=== PATIENT | female | born 2000 | race Caucasian/White ===

== ENCOUNTER 2021-02-02 09:33 | Inpatient (IN) ==
[2021-02-02] MEDS ORDERED: ONDANSETRON INJ 2 MG/ML 2 ML VIAL IV STA (10:13)
[2021-02-02] MEDS ORDERED: SODIUM CHLORIDE 0.9% 1000ML 1,000 ML IV ONE ×2 (10:13→12:41)
[2021-02-02] MEDS ORDERED: KETOROLAC TROMETHAMINE 15 MG/ML VIAL IV STA (10:13)
--- NOTE | 2021-02-02 10:21 | Emergency Department Note ---
Impression & Plan Pyelonephritis, Leukocytosis, Acute right flank pain, Vomiting ED Provider Note NAME: LUKAS TRACEY AGE: 20 SEX: F : 2000 ARRIVES VIA: Walk-In INFORMANT: [Patient] ED PROVIDER(S): [Qamar Biswas MD] CHIEF COMPLAINT: Illness HISTORY OF PRESENT ILLNESS: The patient is a 20-year-old female presents to the ER with urinary symptoms. She thinks she has a bad urinary infection. The patient had a UTI and may be a kidney infection a month ago. She was treated with antibiotics and seemed better for a while. Now, since the eighth, for 6 days now, she has had the return of urinary symptoms. She has pressure to urinate, some pain to urinate, she has lost urinary continence a few times. She went to [facility] and a culture of the urine did grow showing an infection. She was ordered Macrobid but just picked the medications up today. The patient states that she has nausea, she vomited. She has chills. She now has right flank pain that is moderate in severity. She has a headache. Her legs are painful. In addition, on top of everything, she has had a sore throat for 24 hours, the left side seems worse than the right. She is vaccinated against COVID-19. No mono or strep exposures. We were able to obtain the urine culture results from the [facility]. Klebsiella pneumonia grew, it was fairly sensitive, resistance to ampicillin was noted. Ceftriaxone, cefazolin and cefuroxime were all found sensitive. GC and Chlamydia testing was done as well by the [facility], this was negative. REVIEW OF SYSTEMS: See HPI for pertinent positives and negatives. A total of ten systems were reviewed and were otherwise negative. PMHx/PSHx: See Below SOCIAL HISTORY: See Below. PHYSICAL EXAM: GENERAL: Patient is in no acute distress. HEENT: No acute trauma, normocephalic atraumatic, mucous membranes moist, no nasal congestion, no scleral icterus. There is bilateral throat erythema with exudate. No evidence for peritonsillar abscess. NECK: No stridor, moderate bilateral anterior cervical adenopathy, no meningismus, trachea is midline. LUNGS: Clear to auscultation bilaterally, no wheeze, no rhonchi, breath sounds equal. HEART: Without murmurs gallops or rubs, regular rate and rhythm. ABDOMEN: Soft, mildly tender over the bladder, bowel sounds positive, no hernias, no peritonitis. EXTREMITIES: No cyanosis or edema, full range of motion of all the joints without pain or difficulty, no signs for acute trauma. NEUROLOGIC: Oriented x 3, no acute motor or sensory deficits, no focal weakness. SKIN: No rash, no jaundice, no diaphoresis. Back: Mild right flank discomfort to percussion. DIFFERENTIAL DIAGNOSIS: Renal colic, UTI, appendicitis, diverticulitis, mesenteric ischemia, aortic pathology, pyelonephritis, inflammatory bowel disease, PUD, biliary pathology, COVID-19, strep pharyngitis, mono, viral illness, as well as other pathologies. EMERGENCY DEPARTMENT COURSE/PROCEDURES: MEDICAL DECISION MAKING: There is a marked leukocytosis at 27,000, this is consistent with infection. A mild anemia was noted. There was a normal platelet count. No significant electrolyte abnormality or kidney failure. Lactic acid level was not elevated making sepsis less likely. No concerning liver enzyme elevation. testing was negative. Urinalysis was consistent with infection. Covid testing was negative. Clayton and strep testing was negative. Renal ultrasound did not show any hydronephrosis. I was able to review the patient's urine culture results from [facility]. Klebsiella grew, it was resistant to amoxicillin, sensitive to all other antibiotics tested. The patient received IV saline for hydration. She received IV Toradol, IV Zofran and IV cefepime. She was given oral Tylenol, IV morphine and IV Zofran. The patient presents with what seems like pyelonephritis. She is quite ill with a white count of 27,000. I do think a hospital stay for IV antibiotic therapy is warranted. I spoke to the patient, I talked to case management. The on-call hospitalist was consulted. Past Med/Surg History Medical History Psoriatic arthritis Social History Smoking Status: Never smoker Hx Alcohol Use: Yes Hx Substance Use: No Preferred Language: Burkinan Feels Safe at Home: Yes Allergies Allergies Allergy/AdvReac Type Severity Reaction Status Date / Time clindamycin Allergy Intermediate Rash Verified 02/02/21 10:05 prednisone AdvReac Mild SWELLING, Unverified 02/02/21 10:05 LEGS NUMB Home Meds Home Medications Medication Instructions Recorded Confirmed naproxen 500 mg tablet 500 mg PO BID PRN 12/10/20 02/02/21 fluoxetine 20 mg capsule (Prozac) 20 mg PO DAILY 01/16/21 02/02/21 gabapentin 300 mg capsule 300 mg PO UD PRN 02/02/21 02/02/21 multivitamin 1 tab PO DAILY 02/02/21 02/02/21 Results & Data (ED) Vital Signs Vital Signs - 24 hr 02/02/21 09:39 02/02/21 11:14 02/02/21 11:59 Temperature 36.7 C Temperature Source Temporal Artery Scan Pulse Rate 116 H Pulse Rate [Left] 89 Respiratory Rate 18 12 Respiratory Effort / Characteristics Non-Labored Non-Labored Respiratory Depth Normal Normal Respiratory Pattern Regular Blood Pressure 110/64 Blood Pressure [Left Arm] 88/52 L Blood Pressure Mean 79 Blood Pressure Mean [Left Arm] 64 Pulse Oximetry 99 99 99 Oxygen Delivery Method Room Air Sepsis Recent Fever Within 48 Hours No Sepsis New/Unexplained Change in Mental Status No Sepsis Action Taken by Nursing No Action Required 02/02/21 12:39 Temperature Temperature Source Pulse Rate Pulse Rate [Left] 92 H Respiratory Rate 20 Respiratory Effort / Characteristics Non-Labored Respiratory Depth Normal Respiratory Pattern Blood Pressure Blood Pressure [Left Arm] 112/59 L Blood Pressure Mean Blood Pressure Mean [Left Arm] 76 Pulse Oximetry 100 Oxygen Delivery Method Room Air Sepsis Recent Fever Within 48 Hours Sepsis New/Unexplained Change in Mental Status Sepsis Action Taken by Assisted Medications Current Medication List: was personally reviewed by me Laboratory Data Attestation: I reviewed the patient's lab results. Result diagrams: 02/02/21 10:26 02/02/21 10:26 Lab Results 02/02/21 02/02/21 02/02/21 Range/Units 10:26 10:26 10:26 WBC 27.43 H (4.8-10.8) K/uL RBC 3.52 L (4.2-5.4) M/uL Hgb 10.9 L (12.0-16.0) g/dL Hct 32.5 L (37-47) % MCV 92.3 (80-100) fL MCH 31.0 (25-34) pg MCHC 33.5 (32-36) g/dL RDW Std Deviation 46.8 H (36.4-46.3) fL RDW Coeff of Romie 13.9 (11.5-14.5) % Plt Count 305 (130-400) K/uL MPV 9.0 (7.4-10.4) fL Immature Gran % (Auto) 0.3 % Neut % (Auto) 84.8 % Lymph % (Auto) 5.5 % Clayton % (Auto) 9.3 % Eos % (Auto) 0.0 % Baso % (Auto) 0.1 % Neut # (Auto) 23.27 H (1.4-6.5) K/uL Lymph # (Auto) 1.50 (1.2-3.4) K/uL [place] # (Auto) 2.55 H (0.11-0.59) K/uL Eos # (Auto) 0.01 (0-0.5) K/uL Baso # (Auto) 0.03 (0-0.2) K/uL Immature Gran # (Auto) 0.07 H (0.00-0.02) K/uL Sodium 137 (136-145) mmol/L Potassium 4.1 (3.5-5.1) mmol/L Chloride 106 (98-107) mmol/L Carbon Dioxide 24 (21-32) mmol/L Anion Gap 7.0 (3-11) BUN 5 L (7-18) mg/dl Creatinine 0.70 (0.6-1.2) mg/dl Est Cr Clr Drug Dosing 106.9 ml/min Est GFR ( Amer) 145.6 ml/min Est GFR (Non-Af Amer) 125.6 ml/min BUN/Creatinine Ratio 7.3 L (10-20) Glucose 105 H (70-99) mg/dl Lactate (0.4-2.0) mmol/L Calcium 9.0 (8.5-10.1) mg/dl Total Bilirubin 0.4 (0.2-1) mg/dl AST 11 L (15-37) U/L ALT 11 L (12-78) U/L Alkaline Phosphatase 74 (45-117) U/L Total Protein 7.9 (6.4-8.2) gm/dl Albumin 4.1 (3.4-5.0) gm/dl Globulin 3.8 (2.5-4.0) gm/dl Albumin/Globulin Ratio 1.1 (0.9-2) HCG, Qual Negative (Negative) Urine Color Urine Appearance (Clear) Urine pH (4.5-7.5) Ur Specific [place] (1.000-1.030) Urine Protein (Negative) Urine Glucose (UA) (Negative) Urine Ketones (Negative) Urine Blood (Negative) Urine Nitrite (Negative) Urine Bilirubin (Negative) Urine Urobilinogen (Negative) Ur Leukocyte Esterase (Negative) Urine WBC (Auto) (0-5) /hpf Urine RBC (Auto) (0-4) /hpf U Hyaline Cast (Auto) (0-5) /lpf U Epithel Cells (Auto) (0-5) /lpf Urine Bacteria (Auto) (Negative) COVID-19 Eval Order SARS-CoV-2 (PCR) (Negative) Monoscreen Negative (Negative) Group A Strep (Molecular) (Negative) Group A Strep (PCR) 02/02/21 02/02/21 02/02/21 Range/Units 10:30 10:30 10:30 WBC (4.8-10.8) K/uL RBC (4.2-5.4) M/uL Hgb (12.0-16.0) g/dL Hct (37-47) % MCV (80-100) fL MCH (25-34) pg MCHC (32-36) g/dL RDW Std Deviation (36.4-46.3) fL RDW Coeff of Romie (11.5-14.5) % Plt Count (130-400) K/uL MPV (7.4-10.4) fL Immature Gran % (Auto) % Neut % (Auto) % Lymph % (Auto) % [place] % (Auto) % Eos % (Auto) % Baso % (Auto) % Neut # (Auto) (1.4-6.5) K/uL Lymph # (Auto) (1.2-3.4) K/uL [place] # (Auto) (0.11-0.59) K/uL Eos # (Auto) (0-0.5) K/uL Baso # (Auto) (0-0.2) K/uL Immature Gran # (Auto) (0.00-0.02) K/uL Sodium (136-145) mmol/L Potassium (3.5-5.1) mmol/L Chloride (98-107) mmol/L Carbon Dioxide (21-32) mmol/L Anion Gap (3-11) BUN (7-18) mg/dl Creatinine (0.6-1.2) mg/dl Est Cr Clr Drug Dosing ml/min Est GFR ( Amer) ml/min Est GFR (Non-Af Amer) ml/min BUN/Creatinine Ratio (10-20) Glucose (70-99) mg/dl Lactate (0.4-2.0) mmol/L Calcium (8.5-10.1) mg/dl Total Bilirubin (0.2-1) mg/dl AST (15-37) U/L ALT (12-78) U/L Alkaline Phosphatase (45-117) U/L Total Protein (6.4-8.2) gm/dl Albumin (3.4-5.0) gm/dl Globulin (2.5-4.0) gm/dl Albumin/Globulin Ratio (0.9-2) HCG, Qual (Negative) Urine Color Yellow Urine Appearance Cloudy A (Clear) Urine pH 7.0 (4.5-7.5) Ur Specific [place] 1.007 (1.000-1.030) Urine Protein Negative (Negative) Urine Glucose (UA) Negative (Negative) Urine Ketones 1+ H (Negative) Urine Blood 1+ H (Negative) Urine Nitrite Negative (Negative) Urine Bilirubin Negative (Negative) Urine Urobilinogen Negative (Negative) Ur Leukocyte Esterase 3+ H (Negative) Urine WBC (Auto) >30 H (0-5) /hpf Urine RBC (Auto) 5-10 H (0-4) /hpf U Hyaline Cast (Auto) 0 (0-5) /lpf U Epithel Cells (Auto) 20-30 H (0-5) /lpf Urine Bacteria (Auto) 2+ H (Negative) COVID-19 Eval Order Covid19 at [facility] SARS-CoV-2 (PCR) (Negative) Monoscreen (Negative) Group A Strep (Molecular) (Negative) Group A Strep (PCR) Cancelled 02/02/21 02/02/21 02/02/21 Range/Units 10:30 10:30 13:04 WBC (4.8-10.8) K/uL RBC (4.2-5.4) M/uL Hgb (12.0-16.0) g/dL Hct (37-47) % MCV (80-100) fL MCH (25-34) pg MCHC (32-36) g/dL RDW Std Deviation (36.4-46.3) fL RDW Coeff of Romie (11.5-14.5) % Plt Count (130-400) K/uL MPV (7.4-10.4) fL Immature Gran % (Auto) % Neut % (Auto) % Lymph % (Auto) % [place] % (Auto) % Eos % (Auto) % Baso % (Auto) % Neut # (Auto) (1.4-6.5) K/uL Lymph # (Auto) (1.2-3.4) K/uL [place] # (Auto) (0.11-0.59) K/uL Eos # (Auto) (0-0.5) K/uL Baso # (Auto) (0-0.2) K/uL Immature Gran # (Auto) (0.00-0.02) K/uL Sodium (136-145) mmol/L Potassium (3.5-5.1) mmol/L Chloride (98-107) mmol/L Carbon Dioxide (21-32) mmol/L Anion Gap (3-11) BUN (7-18) mg/dl Creatinine (0.6-1.2) mg/dl Est Cr Clr Drug Dosing ml/min Est GFR ( Amer) ml/min Est GFR (Non-Af Amer) ml/min BUN/Creatinine Ratio (10-20) Glucose (70-99) mg/dl Lactate 0.6 (0.4-2.0) mmol/L Calcium (8.5-10.1) mg/dl Total Bilirubin (0.2-1) mg/dl AST (15-37) U/L ALT (12-78) U/L Alkaline Phosphatase (45-117) U/L Total Protein (6.4-8.2) gm/dl Albumin (3.4-5.0) gm/dl Globulin (2.5-4.0) gm/dl Albumin/Globulin Ratio (0.9-2) HCG, Qual (Negative) Urine Color Urine Appearance (Clear) Urine pH (4.5-7.5) Ur Specific [place] (1.000-1.030) Urine Protein (Negative) Urine Glucose (UA) (Negative) Urine Ketones (Negative) Urine Blood (Negative) Urine Nitrite (Negative) Urine Bilirubin (Negative) Urine Urobilinogen (Negative) Ur Leukocyte Esterase (Negative) Urine WBC (Auto) (0-5) /hpf Urine RBC (Auto) (0-4) /hpf U Hyaline Cast (Auto) (0-5) /lpf U Epithel Cells (Auto) (0-5) /lpf Urine Bacteria (Auto) (Negative) COVID-19 Eval Order SARS-CoV-2 (PCR) NEGATIVE (Negative) Monoscreen (Negative) Group A Strep (Molecular) Negative (Negative) Group A Strep (PCR) Administered Medications Discontinued Medications Acetaminophen (Acetaminophen 500 Mg Tab) 1,000 mg PO NOW STA Stop: 02/02/21 12:13 Last Admin: 02/02/21 12:40 Dose: 1,000 mg Documented by: [id number] Sodium Chloride (Nss 1000ml) 1,000 mls @ 999 mls/hr IV .Q1H1M ONE Stop: 02/02/21 11:13 Last Infusion: 02/02/21 12:03 Dose: 0 mls/hr Documented by: [id number] Admin: 02/02/21 10:39 Dose: 999 mls/hr Documented by: [id number] Cefepime HCl (Maxipime) 2,000 mg in 20 mls @ 5 mls/min IV NOW STA; Protocol Stop: 02/02/21 11:04 Last Admin: 02/02/21 12:02 Dose: 5 mls/min Documented by: [id number] Sodium Chloride (Nss 1000ml) 1,000 mls @ 999 mls/hr IV .Q1H1M ONE Stop: 02/02/21 13:41 Last Admin: 02/02/21 12:49 Dose: 999 mls/hr Documented by: [id number] Ketorolac Tromethamine (Ketorolac Tromethamine 15 Mg/Ml Vial) 15 mg IV NOW STA Stop: 02/02/21 10:14 Last Admin: 02/02/21 10:39 Dose: 15 mg Documented by: [id number] Morphine Sulfate (Morphine Sulfate 4 Mg/Ml 1 Ml Carp\Vial) 4 mg IV NOW STA Stop: 02/02/21 12:13 Last Admin: 02/02/21 12:43 Dose: 4 mg Documented by: [id number] Ondansetron HCl (Ondansetron Inj 2 Mg/Ml 2 Ml Vial) 4 mg IV NOW STA Stop: 02/02/21 10:14 Last Admin: 02/02/21 10:39 Dose: 4 mg Documented by: [id number] Imaging Data Radiologist's Impression: Renal Ultrasound 02/02/21 10:13 US renal/blad retro comp HISTORY: 20 years-old Female right flank pain . Acute right flank pain with urinary tract infection COMPARISON: CT abdomen and pelvis 01/16/2021 TECHNIQUE: Multiple real-time sonographic images of the kidneys and urinary bladder were obtained assessing grayscale appearance and color flow FINDINGS: Right kidney measures 10.1 cm in length. Left kidney measures 10.5 cm in length. No renal calculi, hydronephrosis or suspicious mass lesion. Unremarkable urinary bladder. Ureteral jets are not identified. IMPRESSION: Unremarkable sonographic appearance of the kidneys and urinary bladder. ACT 112: Negative or not required by law. The above report was generated using voice recognition software. It may contain grammatical, syntax or spelling errors. Electronically signed by: Mayito Mares M.D. 02/02/2021 11:54 AM Discharge Plan Visit Data Chief Complaint: Illness Stated Complaint: STAFF INFECTION ED Provider: Qamar Biswas Discharge Problem: Pyelonephritis, Leukocytosis, Acute right flank pain, Vomiting Patient Disposition: Admitted As Inpatient Condition: Fair Forms Stand Alone Forms: My [employer] Prescriptions Prescriptions: No Action naproxen 500 mg Tablet 500 mg PO BID PRN (Reason: Headache) RF: 0 fluoxetine [Prozac] 20 mg Capsule 20 mg PO DAILY RF: 0 multivitamin [Multiple Vitamin] Tablet 1 tab PO DAILY RF: 0 gabapentin 300 mg capsule 300 mg PO UD PRN (Reason: Pain) RF: 0 Referrals Referrals: [facility] [Primary Care Provider] -
[2021-02-02 10:42] LABS: Hematocrit (blood only) 32.5 % (37-47); Hemoglobin 10.9 g/dL (12.0-16.0); Mean Corpuscular Hgb Conc 33.5 g/dL (32-36); Mean Corpuscular Volume 92.3 fL (80-100); Platelet Count 305 K/uL (130-400); RDW Coefficient of Variation 13.9 % (11.5-14.5); RDW Standard Deviation 46.8 fL (36.4-46.3); Red Blood Count 3.52 M/uL (4.2-5.4); White Blood Count 27.43 K/uL (4.8-10.8)
[2021-02-02 10:49] LABS: Appearance Urine Cloudy (Clear); Bacteria Urine Automated 2+ (Negative); Bilirubin Urine Negative (Negative); Blood Urine 1+ (Negative); Cast Urine Automated 0 /lpf (0-5); Color Urine Yellow; Epithelial Cell Urine Auto 20-30 /lpf (0-5); Glucose Urine UA Negative (Negative); Ketones Urine 1+ (Negative); Leukocyte Esterase Urine 3+ (Negative); Nitrite Urine Negative (Negative); Protein Urine Negative (Negative); Specific Gravity Urine 1.007 (1.000-1.030); Urobilinogen Urine Negative (Negative); WBC Urine Automated >30 /hpf (0-5)
[2021-02-02] MEDS ORDERED: CEFEPIME 2,000 MG/20 ML VIAL IV STA (11:01)
[2021-02-02 11:06] LABS: Albumin Level 4.1 gm/dl (3.4-5.0); BUN Creatinine Ratio 7.3 (10-20); Creatinine Clr Calc Pharmacy 106.9 ml/min; Est GFR (African American) 145.6 ml/min; Est GFR (Non-African American) 125.6 ml/min; Monotest Negative (Negative); Potassium 4.1 mmol/L (3.5-5.1); Pregnancy Test, Serum Negative (Negative)
[2021-02-02 11:09] LABS: Albumin Globulin Ratio 1.1 (0.9-2); Bilirubin,Total 0.4 mg/dl (0.2-1); Globulin 3.8 gm/dl (2.5-4.0); Total Protein 7.9 gm/dl (6.4-8.2)
[2021-02-02 11:15] LABS: Basophils # (auto) 0.03 K/uL (0-0.2); Basophils % (auto) 0.1 %; Eosinophils # (auto) 0.01 K/uL (0-0.5); Immature Granulocytes # (auto) 0.07 K/uL (0.00-0.02); Immature Granulocytes % (auto) 0.3 %; Lymphocytes % (auto) 5.5 %; Monocytes # (auto) 2.55 K/uL (0.11-0.59); Monocytes % (auto) 9.3 %; Neutrophils # (auto) 23.27 K/uL (1.4-6.5); Neutrophils % (auto) 84.8 %
--- NOTE | 2021-02-02 11:56 | Ultrasound Report ---
US renal/blad retro comp HISTORY: 20 years-old Female right flank pain . Acute right flank pain with urinary tract infection COMPARISON: CT abdomen and pelvis 01/16/2021 TECHNIQUE: Multiple real-time sonographic images of the kidneys and urinary bladder were obtained ass essing grayscale appearance and color flow FINDINGS: Right kidney measures 10.1 cm in length. Left kidney measures 10.5 cm in length. No renal calculi, hy dronephrosis or suspicious mass lesion. Unremarkable urinary bladder. Ureteral jets are not identified. IMPRESSION: Unremarkable sonographic appearance of the kidneys and urinary bladder. ACT 112: Negative or not required by law. The above report was generated using voice recognition software. It may contain grammatical, syntax o r spelling errors. Electronically signed by: Mayito Mares M.D. 02/02/2021 11:54 AM
[2021-02-02] MEDS ORDERED: MoRPHine SULFATE 4 MG/ML 1 ML CARP\\VIAL IV STA (12:12)
[2021-02-02] MEDS ORDERED: ACETAMINOPHEN 500 MG TAB PO STA (12:12)
--- NOTE | 2021-02-02 12:44 | History & Physical Report ---
Date of Service February 02, 2021 Assessment & Plan (1) Pyelonephritis: Plan: Klebsiella resistant to amoxicillin as outpatient Follow up repeat urine and blood cultures here Switch cefepime to ceftriaxone 2g IV daily (2) Psoriatic arthritis: Plan: Diagnosed in June. 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 Takes naproxen and gabapentin as needed. She was supposed to be on methotrexate after IUD and after UTIs cleared up. Affects her back and joints. No psoriasis (3) Fibromyalgia: Plan: VTE Prophylaxis - low risk, none Diet - regular Disposition - observation status to med/surg History of Present Illness Chief Complaint: UTI Primary Care Provider: [facility] Duglas is a 20 year old female who presents to the ER with UTI symptoms. Initial symptoms started on December 25 with urinary frequency and dysuria. She was not seen by a healthcare provider for 2 weeks but was started on Macrobid in mid-December. Ad the same time she was also diagnosed with a sinus infection and treated with 7 days of amoxicillin. Her symptoms improved for 2-3 days but then returned. On Jan 27 she went back to [facility] and took a urine sample but initially not given antibiotics. 3 days ago on Saturday she was told she had a UTI and was prescribed and Macrobid again but only picked this up today. She now has worsening symptoms since Saturday with chills, urinary frequency, dysuria and right flank pain. Urine culture from [facility] grew Klebsiella pneumonia grew with resistance to ampicillin was noted. Sensitive to ceftriaxone. In the ER she was diagnosed with pyelonephritis and treated with IV cefepime. She was referred to Medicine for admission and ongoing management of pyelonephritis. Allergies Allergy/AdvReac Type Severity Reaction Status Date / Time clindamycin Allergy Intermediate Rash Verified 02/02/21 10:05 prednisone AdvReac Mild SWELLING, Unverified 02/02/21 10:05 LEGS NUMB Home Medications Medication Instructions Recorded Confirmed Type naproxen 500 mg tablet 500 mg PO BID PRN 12/10/20 02/02/21 History fluoxetine 20 mg capsule (Prozac) 20 mg PO DAILY 01/16/21 02/02/21 History gabapentin 300 mg capsule 300 mg PO TID PRN 02/02/21 02/02/21 History multivitamin 1 tab PO DAILY 02/02/21 02/02/21 History Past Med/Surg History Medical History Psoriatic arthritis Social History Smoking Status: Never smoker Hx Alcohol Use: Yes Hx Substance Use: No Preferred Language: Greek Communication Ability: Effective Intelligence Operations Specialist Required: No Beliefs That Will Affect Care: None Current Living Situation: Other Current Living Situation Comment: 3 roomates Other Information That Helps Us Care for You: No Feels Safe at Home: Yes Safety Concerns: Feels Safe At This Time Assistive Devices: None Review of Systems Review of Systems: All systems reviewed & are unremarkable except as noted in HPI & below Sore throat Bilateral leg pain Physical Exam Constitutional: WD/WN, vitals as above Eyes: + anicteric sclerae; normal pupil size ENMT: external ear and nose normal, oropharynx normal Neck: trachea midline, no thyromegaly Respiratory: normal respiratory effort, lungs clear to auscultation Cardiovascular: RRR, no murmur, no edema Gastrointestinal (Abdomen): Inspection/Auscultation: abdomen normal to inspection Percussion/Palpation: abdomen soft; abdomen nontender, no guarding and abdomen not rigid Musculoskeletal: no cyanosis or clubbing, extremities motor strength 5/5 Skin: no rashes, warm and dry Neurologic: moves all extremities and awake; not confused Psychiatric: A+Ox3, euthymic affect Genitourinary: + CVA tenderness (right) Results & Data Results & Data ([facility]) Vital Signs (Past 12 Hours) Vital Signs Temp Pulse Pulse Resp BP BP Pulse Ox 02/02/21 11:59 89 12 88/52 L 99 02/02/21 11:14 99 02/02/21 09:39 36.7 C 116 H 18 110/64 99 Laboratory Results Abnormal lab results 02/02/21 02/02/21 02/02/21 Range/Units 10:26 10:26 10:30 WBC 27.43 H (4.8-10.8) K/uL RBC 3.52 L (4.2-5.4) M/uL Hgb 10.9 L (12.0-16.0) g/dL Hct 32.5 L (37-47) % RDW Std Deviation 46.8 H (36.4-46.3) fL Neut # (Auto) 23.27 H (1.4-6.5) K/uL [place] # (Auto) 2.55 H (0.11-0.59) K/uL Immature Gran # (Auto) 0.07 H (0.00-0.02) K/uL BUN 5 L (7-18) mg/dl BUN/Creatinine Ratio 7.3 L (10-20) Glucose 105 H (70-99) mg/dl AST 11 L (15-37) U/L ALT 11 L (12-78) U/L Urine Appearance Cloudy A (Clear) Urine Ketones 1+ H (Negative) Urine Blood 1+ H (Negative) Ur Leukocyte Esterase 3+ H (Negative) Urine WBC (Auto) >30 H (0-5) /hpf Urine RBC (Auto) 5-10 H (0-4) /hpf U Epithel Cells (Auto) 20-30 H (0-5) /lpf Urine Bacteria (Auto) 2+ H (Negative) Diagnostic Findings US renal/blad retro comp HISTORY: 20 years-old Female right flank pain . Acute right flank pain with urinary tract infection COMPARISON: CT abdomen and pelvis 01/16/2021 TECHNIQUE: Multiple real-time sonographic images of the kidneys and urinary bladder were obtained assessing grayscale appearance and color flow FINDINGS: Right kidney measures 10.1 cm in length. Left kidney measures 10.5 cm in length. No renal calculi, hydronephrosis or suspicious mass lesion. Unremarkable urinary bladder. Ureteral jets are not identified. IMPRESSION: Unremarkable sonographic appearance of the kidneys and urinary bladder. Medications Administered ER Medications Given: NSS 1L bolus Toradol 15mg IV Ondansetron 4mg IV Cefepime 2g IV Morphine 4mg IV Acteaminophen 1g IV Code Status & VTE Plan Code Status Full VTE Prophylaxis Plan VTE Prophylaxis will be ordered: No Reason for no VTE drug order: Treatment not indicated Reason for no VTE mechanical prophylaxis: Treatment not indicated PG Care Time/CCT Total # of Minutes Spent Total Time Spent with Patient: Total time spent is greater than 50% in coordination of care (as documented) at patient's floor/unit and/or counseling patient: Coding Level of Care Code INT OBSERVATION CARE 50M LVL 2 Diagnoses Pyelonephritis N12 Psoriatic arthritis L40.50 Fibromyalgia M79.7
[2021-02-02] MEDS ORDERED: GABAPENTIN 300 MG CAP PO PRN (15:24)
[2021-02-02] MEDS ORDERED: NAPROXEN 250 MG TAB PO PRN (15:24)
[2021-02-02] MEDS: SODIUM CHLORIDE 0.9% 1000ML 1,000 ML IV SCH ×2 (15:56→21:54)
[2021-02-02] MEDS: cefTRIAXone SODIUM 2,000 MG in DEXTROSE 5% 50 ML IV SCH (18:12)
[2021-02-02] MEDS: ACETAMINOPHEN 325 MG TAB PO PRN (19:58)
[2021-02-02] MEDS: KETOROLAC TROMETHAMINE 15 MG/ML VIAL IV PRN (20:00)
[2021-02-02] MEDS: MoRPHine SULFATE 2 MG/ML CARP IV PRN (22:00)
[2021-02-03] MEDS: SODIUM CHLORIDE 0.9% 1000ML 1,000 ML IV SCH ×4 (03:09→21:53)
[2021-02-03] MEDS ORDERED: diphenhydrAMINE 50 MG/ML VIAL IV STA (03:21)
[2021-02-03] MEDS ORDERED: SODIUM CHLORIDE 0.9% 1000ML 1,000 ML IV ONE (03:30)
--- NOTE | 2021-02-03 03:32 | Communication Note ---
Date of Service: February 03, 2021 Called to bedside for patient complaints of cheek swelling and dizziness when using the restroom. Had received morphine not too long prior to symptoms. BP per patient runs on lower side 90s systolic, and is 90s at this time. However, given dizziness with standing and pain medication will give another NSS bolus. Have also ordered Benadryl to be given to see if this improves her sensation of swelling. Does not appear grossly swollen to my exam. No edema noted in upper or lower extremities. Patient complained of throat pain and so did do ENT exam; no maykel to have significant exudates on left tonsil. Per chart review, Monospot and Rapid Strep testing in the ER was negative. WBC count of 27.43 with neutrophil predominance. Renal ultrasound read as normal. While certainly patient has UTI and is undergoing treatment, also have suspicion of exudative pharyngitis (EBV, CMV, Strep). Patient has had sore throat x2 days, which would not likely be long enough for Monospot testing to be positive. Not impossible to have a false negative strep test. Ceftriaxone will cover Group A Strep species well regardless.
[2021-02-03 06:20] LABS: Basophils # (auto) 0.02 K/uL (0-0.2); Basophils % (auto) 0.1 %; Eosinophils # (auto) 0.12 K/uL (0-0.5); Eosinophils % (auto) 0.9 %; Hematocrit (blood only) 26.1 % (37-47); Hemoglobin 8.5 g/dL (12.0-16.0); Immature Granulocytes # (auto) 0.04 K/uL (0.00-0.02); Immature Granulocytes % (auto) 0.3 %; Lymphocytes # (auto) 2.44 K/uL (1.2-3.4); Lymphocytes % (auto) 17.8 %; Mean Corpuscular Hemoglobin 30.4 pg (25-34); Mean Corpuscular Hgb Conc 32.6 g/dL (32-36); Mean Corpuscular Volume 93.2 fL (80-100); Mean Platelet Volume 9.5 fL (7.4-10.4); Monocytes # (auto) 1.02 K/uL (0.11-0.59); Monocytes % (auto) 7.4 %; Neutrophils # (auto) 10.06 K/uL (1.4-6.5); Neutrophils % (auto) 73.5 %; Platelet Count 231 K/uL (130-400); RDW Coefficient of Variation 14.2 % (11.5-14.5); RDW Standard Deviation 48.9 fL (36.4-46.3)
[2021-02-03 07:02] LABS: BUN Creatinine Ratio 8.8 (10-20); Blood Urea Nitrogen 5 mg/dl (7-18); Calcium 7.7 mg/dl (8.5-10.1); Carbon Dioxide 22 mmol/L (21-32); Chloride 116 mmol/L (98-107); Creatinine Clr Calc Pharmacy 141.2 ml/min; Est GFR (African American) > 150.0 ml/min; Est GFR (Non-African American) 137.6 ml/min; Glucose 90 mg/dl (70-99); Potassium 4.1 mmol/L (3.5-5.1); Sodium 139 mmol/L (136-145)
[2021-02-03] MEDS: MULTIVITAMIN TAB PO SCH (08:06)
[2021-02-03] MEDS: FLUoxetine HCL 20 MG CAP PO SCH (08:06)
[2021-02-03] MEDS: MoRPHine SULFATE 2 MG/ML CARP IV PRN (08:11)
[2021-02-03] MEDS ORDERED: diphenhydrAMINE 50 MG/ML VIAL IV PRN (08:30)
--- NOTE | 2021-02-03 08:36 | Hospitalist Progress Note ---
Date of Service February 03, 2021 Assessment & Plan (1) UTI (urinary tract infection): Plan: Klebsiella resistant to amoxicillin as outpatient also previous Citrobacter. initial concerns for pyleonephritis but US of kidneys does not suggest parenchymal infection or cystitis Follow up repeat urine and blood cultures here, throat culture is also pending Switch cefepime to ceftriaxone 2g IV daily Goal would be to have the gram-negative bacilli identified with sensitivities and pick an antibiotic that is both good for that and for her oral pharyngitis although her oral pharyngitis may also likely be a viral pharyngitis (2) Pharyngitis: Plan: Pt with exudative pharyngitis with negative initial monospot and strep screen subjectively this is bothering the pt the most, will have bacterial pharyngitis covered by ceftriaxone add throat culture (3) Psoriatic arthritis: Plan: Diagnosed in June. 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 Takes naproxen and gabapentin as needed. She was supposed to be on methotrexate after IUD and after UTIs cleared up. Affects her back and joints. No psoriasis (4) Fibromyalgia: Admission and Anticipated Discharge Date Admission Date: February 02, 2021 Subjective Patient states that she feels like she is at a swollen face and swollen legs. This is a subjective description and not objectively validated. She does have a sore throat and has some minor low back pain Review of Systems Review of Systems: Mild distress and fatigue no headache, no visual changes no speech or swallowing issues, does complain of a sore throat No stridor or breathing difficulties with regard to her neck no chest pain, pressure or palpitations no shortness of breath, cough or wheezes no abdominal pain, is of some minor bilateral lower back pain, no nausea or vomiting, diarrhea or constipation Frequency and cloudiness is described no focal joint pain or swelling no back pain, CVA tenderness or radicular pain no bruising, bleeding or rashes no focal signs of weakness or numbness or altered sensation no complaints of anxiety or depression.. Physical Exam Physical Exam: The patient appeared well nourished and normally developed. Vital signs as documented. Head exam is normocephalic atraumatic Oropharynx shows exudative pharyngitis to the left with some tonsillar enlargement erythema and exudates Neck is without JVD, thyromegaly, or carotid bruits. Lungs are clear to auscultation, no focal loss of breath sounds Cardiac exam, Rhythm is regular.. No murmurs, rubs or gallops. Abdominal exam reveals normal bowel sounds, soft non tender, no masses Extremities are nonedematous and both pedal pulses are present Neurologic exam is alert and oriented, no focal loss of strength or sensation Skin is without bruises or rashes her described swelling is not corroborated on exam Psychologically is without concerns for anxiety or depression Results & Data Results & Data ([facility]) Vital Signs (Past 12 Hours) Vital Signs Temp Pulse Resp BP BP Pulse Ox 02/03/21 06:20 98.4 F 91 H 16 106/61 98 02/03/21 03:12 97/62 L 02/02/21 23:18 61 111/67 02/02/21 22:45 98.4 F 68 16 82/49 L 90/55 L 98 PG Care Time/CCT Total # of Minutes Spent Total Time Spent with Patient: Total time spent is greater than 50% in coordination of care (as documented) at patient's floor/unit and/or counseling patient: Coding Level of Care Code 31820 Subseq Obs Care Lvl 2 Diagnoses Psoriatic arthritis L40.50 Fibromyalgia M79.7 UTI (urinary tract infection) N39.0 Pharyngitis J02.9
[2021-02-03 10:13] LABS: Iron 12 mcg/dl (35-150); Total Iron Binding Capacity 337 mcg/dl (250-450)
[2021-02-03 10:28] LABS: Folate (Folic Acid) 19.9 ng/ml (>5.38)
[2021-02-03] MEDS: cefTRIAXone SODIUM 2,000 MG in DEXTROSE 5% 50 ML IV SCH (17:48)
[2021-02-03] MEDS ORDERED: ENOXAPARIN INJ 40 MG/0.4 ML SYR SQ ONE (20:45)
[2021-02-03] MEDS: ONDANSETRON INJ 2 MG/ML 2 ML VIAL IV PRN (20:52)
[2021-02-03] MEDS: ACETAMINOPHEN 325 MG TAB PO PRN (20:53)
[2021-02-03] MEDS: POLYETHYLENE (MIRALAX) 17 GM PACK PO PRN (21:52)
[2021-02-03] MEDS: ALBUT/IPRATROP 3MG/0.5MG NEB 3 ML VIAL NEB PRN (22:16)
[2021-02-04] MEDS: SODIUM CHLORIDE 0.9% 1000ML 1,000 ML IV SCH ×2 (03:26→09:56)
[2021-02-04] MEDS: MoRPHine SULFATE 2 MG/ML CARP IV PRN (05:02)
[2021-02-04] MEDS: diphenhydrAMINE Capsule 25 MG CAP PO PRN (08:07)
[2021-02-04] MEDS: KETOROLAC TROMETHAMINE 15 MG/ML VIAL IV PRN ×2 (08:08→18:42)
[2021-02-04] MEDS: ALBUT/IPRATROP 3MG/0.5MG NEB 3 ML VIAL NEB PRN ×2 (08:21→20:13)
[2021-02-04 09:43] LABS: Basophils # (auto) 0.02 K/uL (0-0.2); Basophils % (auto) 0.2 %; Eosinophils # (auto) 0.13 K/uL (0-0.5); Eosinophils % (auto) 1.5 %; Hematocrit (blood only) 29.1 % (37-47); Hemoglobin 9.6 g/dL (12.0-16.0); Immature Granulocytes # (auto) 0.02 K/uL (0.00-0.02); Immature Granulocytes % (auto) 0.2 %; Lymphocytes # (auto) 1.71 K/uL (1.2-3.4); Lymphocytes % (auto) 19.5 %; Mean Corpuscular Hemoglobin 30.8 pg (25-34); Mean Corpuscular Volume 93.3 fL (80-100); Mean Platelet Volume 9.2 fL (7.4-10.4); Monocytes # (auto) 0.85 K/uL (0.11-0.59); Monocytes % (auto) 9.7 %; Neutrophils # (auto) 6.06 K/uL (1.4-6.5); Neutrophils % (auto) 68.9 %; Platelet Count 261 K/uL (130-400); RDW Standard Deviation 48.1 fL (36.4-46.3); Red Blood Count 3.12 M/uL (4.2-5.4); White Blood Count 8.79 K/uL (4.8-10.8)
[2021-02-04] MEDS: FERROUS SULFATE 325 MG TAB PO SCH (10:00)
[2021-02-04 10:05] LABS: BUN Creatinine Ratio 4.5 (10-20); Blood Urea Nitrogen 3 mg/dl (7-18); Calcium 8.3 mg/dl (8.5-10.1); Carbon Dioxide 24 mmol/L (21-32); Chloride 113 mmol/L (98-107); Creatinine Clr Calc Pharmacy 120.7 ml/min; Est GFR (African American) > 150.0 ml/min; Est GFR (Non-African American) 130.7 ml/min; Glucose 95 mg/dl (70-99); Potassium 3.8 mmol/L (3.5-5.1); Sodium 142 mmol/L (136-145)
--- NOTE | 2021-02-04 10:58 | XRay Report ---
XR chest 2V PA/lateral HISTORY: Shortness of breath. COMPARISON: Chest 01/16/2021. FINDINGS: No pneumothorax. The heart is normal in size. There are small bilateral pleural fusions and patchy bibasilar airspace opacities. The upper lung zones are clear. No rib fractures identified. IMPRESSION: Small bilateral pleural effusions with patchy bibasilar densities. This may represent a viral pneumon ia. Recommend follow-up to ensure resolution. ACT 112: Negative or not required by law. Electronically signed by: Steve Hilliard M.D. 02/04/2021 10:57 AM
[2021-02-04] MEDS: FLUoxetine HCL 20 MG CAP PO SCH (11:05)
[2021-02-04] MEDS: MULTIVITAMIN TAB PO SCH (11:05)
--- NOTE | 2021-02-04 17:27 | Hospitalist Progress Note ---
Date of Service February 04, 2021 Assessment & Plan (1) UTI (urinary tract infection): Plan: Initial concerns for pyleonephritis but US of kidneys does not suggest parenchymal infection or cystitis. UTI symptoms have resolved. White count has normalized. Final UC&S growing Klebsiella sensitive to IV ceftriaxone. Continue abx for now as white count has improved. Consider de-esclating to PO abx tomorrow. Blood cultures pending. Goal would be to have the gram-negative bacilli identified with sensitivities and pick an antibiotic that is both good for that and for her oral pharyngitis although her oral pharyngitis may also likely be a viral pharyngitis. (2) Pharyngitis: Plan: Pt with exudative pharyngitis with negative initial monospot and strep screen. Viral vs bacterial? Throat culture pending. She reports pain has improved this morning. Mostly c/o increasing SOB and chest tightness. See below. (3) Psoriatic arthritis: Plan: Diagnosed in June. 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 Takes naproxen and gabapentin as needed. She was supposed to be on methotrexate after IUD and after UTIs cleared up. Affects her back and joints. No psoriasis (4) Fibromyalgia: (5) SOB (shortness of breath): (6) Hypoxia: Plan: SOB with hypoxia this AM. O2 sat of 88%. Currently O2 sat of 95% on 1L O2 nasal cannula. No hx of asthma. Lungs clear to auscultation bilaterally. Chest XR showing possible viral pneumonia. EKG performed d/t chest tightness. Non-specific T wave abnormality likely normal variant for age, but will check ECHO to r/o pericarditis in the setting of viral illness. Continue Duonebs QID PRN, incentive spirometer, ambulation to hallway (7) Iron deficiency anemia: Plan: Iron level of 12. Patient reports hx of iron deficiency anemia, but she stopped taking iron. Will resume ferrous sulfate. H&H of 9.6 and 29.1 this morning. Will continue to monitor. (8) DVT prophylaxis: Plan: Low risk- encourage ambulation Plan: Patient's mother Marly updated this evening. Phone number is for further updates. Admission and Anticipated Discharge Date Admission Date: February 02, 2021 Subjective Patient c/o increased SOB this morning with chest tightness. O2 sat was 88%, and she was placed on 1L of O2 nasal cannula. She has no hx of asthma. She does have a hx of environmental allergies. Mild improvement in SOB with albuterol. She denies any urinary symptoms this morning. She also c/o diffuse edema of the extremities and face with she noted yesterday as well. Review of Systems Review of Systems: All systems reviewed & are unremarkable except as noted in Subjective Physical Exam Physical Exam: Temp Pulse Resp BP Pulse Ox 36.8 C 105 H 18 113/71 95 02/04/21 15:06 02/04/21 15:06 02/04/21 15:06 02/04/21 15:06 02/04/21 15:06 Patient is afebrile. Vital signs stable. Constitutional: average body habitus; no acute distress Eyes: + anicteric sclerae ENMT: Ears: no hearing impairment Neck: normal visual inspection Respiratory: normal respiratory effort, lungs clear to auscultation Cardiovascular: RRR, no murmur, no edema Gastrointestinal (Abdomen): Inspection/Auscultation: normal bowel sounds Percussion/Palpation: abdomen soft; abdomen nontender Musculoskeletal: Head/Neck/Chest: normocephalic Skin: no rashes, warm and dry Psychiatric: A+Ox3, euthymic affect Results & Data Results & Data ([facility]) Vital Signs (Past 12 Hours) Vital Signs Temp Pulse Resp BP Pulse Ox 02/04/21 15:06 36.8 C 105 H 18 113/71 95 02/04/21 08:21 84 20 97 02/04/21 08:12 94 02/04/21 08:07 88 L 02/04/21 07:59 97 02/04/21 07:41 37.2 C 73 17 102/63 92 PG Care Time/CCT Total # of Minutes Spent Total Time Spent with Patient: Total time spent is greater than 50% in coordination of care (as documented) at patient's floor/unit and/or counseling patient: Coding Level of Care Code 45559 Subseq Hosp Care Lvl 3 History Detailed Exam Detailed Medical Decision Making Moderate Complexity Diagnoses UTI (urinary tract infection) N39.0 Pharyngitis J02.9 Psoriatic arthritis L40.50 Fibromyalgia M79.7 SOB (shortness of breath) R06.02 Hypoxia R09.02 Iron deficiency anemia D50.9 DVT prophylaxis Z29.9
[2021-02-04] MEDS: cefTRIAXone SODIUM 2,000 MG in DEXTROSE 5% 50 ML IV SCH (17:36)
[2021-02-04 19:25] LABS: Adenovirus PCR Not Detected (NotDetected); Bordetella parapertussis PCR Not Detected (NotDetected); Bordetella pertussis PCR Not Detected (NotDetected); Chlamydia pneumoniae PCR Not Detected (NotDetected); Coronavirus 229E PCR Not Detected (NotDetected); Coronavirus CoV-2 (COVID19)PCR Not Detected (NotDetected); Coronavirus HKU1 PCR Not Detected (NotDetected); Coronavirus NL63 PCR Not Detected (NotDetected); Coronavirus OC43PCR Not Detected (NotDetected); Human Metapneumovirus PCR Not Detected (NotDetected); Influenza A PCR Not Detected (NotDetected); Influenza B PCR Not Detected (NotDetected); Mycoplasma pneumoniae PCR Not Detected (NotDetected); Parainfluenza Virus 1 PCR Not Detected (NotDetected); Parainfluenza Virus 2 PCR Not Detected (NotDetected); Parainfluenza Virus 3 PCR Not Detected (NotDetected); Parainfluenza Virus 4 PCR Not Detected (NotDetected); Respiratory Syncytial VirusPCR Not Detected (NotDetected)
[2021-02-04 19:31] LABS: Rhinovirus/Enterovirus PCR DETECTED (NotDetected)
[2021-02-04] MEDS: POLYETHYLENE (MIRALAX) 17 GM PACK PO PRN (19:37)
[2021-02-04] MEDS: ACETAMINOPHEN 325 MG TAB PO PRN (22:35)
[2021-02-05 06:09] LABS: Basophils # (auto) 0.02 K/uL (0-0.2); Basophils % (auto) 0.3 %; Eosinophils # (auto) 0.13 K/uL (0-0.5); Eosinophils % (auto) 1.8 %; Hematocrit (blood only) 28.9 % (37-47); Hemoglobin 9.5 g/dL (12.0-16.0); Immature Granulocytes # (auto) 0.01 K/uL (0.00-0.02); Immature Granulocytes % (auto) 0.1 %; Lymphocytes % (auto) 22.2 %; Mean Corpuscular Hemoglobin 30.5 pg (25-34); Mean Corpuscular Hgb Conc 32.9 g/dL (32-36); Mean Corpuscular Volume 92.9 fL (80-100); Mean Platelet Volume 9.5 fL (7.4-10.4); Monocytes # (auto) 0.77 K/uL (0.11-0.59); Monocytes % (auto) 10.7 %; Neutrophils # (auto) 4.68 K/uL (1.4-6.5); Neutrophils % (auto) 64.9 %; Platelet Count 295 K/uL (130-400); RDW Coefficient of Variation 13.9 % (11.5-14.5); RDW Standard Deviation 47.8 fL (36.4-46.3); Red Blood Count 3.11 M/uL (4.2-5.4); White Blood Count 7.21 K/uL (4.8-10.8)
[2021-02-05 06:32] LABS: Alanine Aminotransferase 17 U/L (12-78); Aspartate Aminotransferase 11 U/L (15-37); BUN Creatinine Ratio 6.5 (10-20); Blood Urea Nitrogen 4 mg/dl (7-18); Calcium 8.6 mg/dl (8.5-10.1); Carbon Dioxide 28 mmol/L (21-32); Chloride 108 mmol/L (98-107); Creatinine Clr Calc Pharmacy 131.3 ml/min; Est GFR (African American) > 150.0 ml/min; Est GFR (Non-African American) 134.4 ml/min; Glucose 91 mg/dl (70-99); Potassium 4.2 mmol/L (3.5-5.1); Sodium 138 mmol/L (136-145)
[2021-02-05 06:35] LABS: Albumin Globulin Ratio 0.9 (0.9-2); Alkaline Phosphatase 70 U/L (45-117); Bilirubin,Total 0.3 mg/dl (0.2-1); Globulin 3.5 gm/dl (2.5-4.0); Total Protein 6.5 gm/dl (6.4-8.2)
[2021-02-05] MEDS: ONDANSETRON INJ 2 MG/ML 2 ML VIAL IV PRN ×2 (06:48→23:19)
[2021-02-05] MEDS: KETOROLAC TROMETHAMINE 15 MG/ML VIAL IV PRN ×2 (06:51→20:05)
[2021-02-05] MEDS ORDERED: OPTIRAY 320 125ml IV ONE (07:14)
--- NOTE | 2021-02-05 07:35 | CT Scan Report ---
CT ANGIOGRAPHY OF THE CHEST, PULMONARY EMBOLUS PROTOCOL CLINICAL HISTORY: Shortness of breath. Chest pain. Evaluate for pulmonary embolus. COMPARISON STUDY: Chest radiograph February 04, 2021. TECHNIQUE: Following IV administration of 74 mL of Optiray, helical axial images of the chest were ob tained utilizing the pulmonary embolus protocol. Maximal intensity projections and sagittal and darius nal reformats were viewed on an independent 3D workstation. IV contrast was administered without com plication. Automated exposure control was utilized for the study. A dose lowering technique was uti lized adhering to the principles of ALARA. CT DOSE: 210.16 mGy.cm FINDINGS: No pulmonary emboli are identified. There is no thoracic aortic dissection. Size of the he art is normal. There is no pericardial effusion. Small to moderate right and small left pleural effus ions are noted. There is extensive right lower lobe airspace opacity. Moderate left lower lobe airspa ce opacities. There is no pneumothorax. Central airways are patent. No thoracic lymphadenopathy is noted. No acute fracture or suspicious lesion is identified within visualized portions of the bony thorax. Upper abdo men is unremarkable. IMPRESSION: 1. No pulmonary emboli identified. 2. Small to moderate right and small left pleural effusions. 3. Extensive right lower lobe consolidation and moderate left lower lobe airspace opacity. The findin gs favor pneumonia. ACT 112: Negative or not required by law. Electronically signed by: Ken Barkley M.D. 02/05/2021 7:34 AM
[2021-02-05] MEDS: AZITHROMYCIN 250 MG TAB PO SCH (09:08)
[2021-02-05] MEDS: FERROUS SULFATE 325 MG TAB PO SCH (09:08)
[2021-02-05] MEDS: MULTIVITAMIN TAB PO SCH (09:08)
[2021-02-05] MEDS: FLUoxetine HCL 20 MG CAP PO SCH (09:08)
--- NOTE | 2021-02-05 09:43 | Electrocardiogram Report ---
Test Reason : Blood Pressure : / mmHG Vent. Rate : 081 BPM Atrial Rate : 081 BPM P-R Int : 134 ms QRS Dur : 086 ms QT Int : 370 ms P-R-T Axes : 060 072 -22 degrees QTc Int : 429 ms Normal sinus rhythm Nonspecific T wave abnormality Abnormal ECG No previous ECGs available Confirmed by Doron Tam ([id number]) on 02/05/2021 9:43:25 AM Referred By: REFERRED SELF Confirmed By:Doron Tam
--- NOTE | 2021-02-05 09:56 | Electrocardiogram Report ---
Test Reason : Blood Pressure : / mmHG Vent. Rate : 065 BPM Atrial Rate : 065 BPM P-R Int : 126 ms QRS Dur : 082 ms QT Int : 396 ms P-R-T Axes : 057 077 021 degrees QTc Int : 411 ms Normal sinus rhythm Nonspecific T wave abnormality Abnormal ECG When compared with ECG of 04-FEB-2021 10:33, (unconfirmed) No significant change was found Confirmed by Doron Tam ([id number]) on 02/05/2021 9:55:44 AM Referred By: REFERRED SELF Confirmed By:Doron Tam
[2021-02-05] MEDS: ACETAMINOPHEN 325 MG TAB PO PRN (12:57)
[2021-02-05] MEDS: ADVANCED PROBIOTIC 1250 MG CAPSULE PO SCH (13:33)
--- NOTE | 2021-02-05 14:46 | Hospitalist Progress Note ---
Date of Service February 05, 2021 Assessment & Plan (1) Pneumonia: Plan: CT chest shows right lower lobe consolidation, smaller left lower lobe infiltrate small to moderate right pleural effusion, small left pleural effusion this would explain night sweats, fever/chills, fatigue, pleuritic chest pain, leukocytosis was on Rocephin for UTI, WBC went down, no fever add Zithromax 500mg daily for atypical coverage but with lobar consolidation more likely S pneumo consult pulmonology to see tomorrow, evaluate effusions (2) Pleural effusion: Plan: likely parapneumonic consult pulmonology to evaluate tomorrow (3) Hypoxia: Plan: SOB with hypoxia in morning on 02/04. O2 sat of 88%. she is 95-97% on 1L, oxygen can be removed initially thought to have viral pneumonia based on pharyngitis, appearance of CXR COVID negative, + rhinovirus now CTA chest with consolidation, explains hypoxia flutter valve QID, Mucinex (4) Chest pain: Plan: central, pleuritic in nature EKG with some TW inversions in V1-V4 but likely due to being young patient no evidence of pericarditis on EKG echo done, awaiting report most logical etiology would be consolidation, pneumonia (5) UTI (urinary tract infection): Plan: Initial concerns for pyleonephritis but US of kidneys does not suggest parenchymal infection or cystitis. UTI symptoms have resolved. White count has normalized. Final UC&S growing Klebsiella sensitive to IV ceftriaxone, finish 7 days of treatment prone to UTI in past, numerous issues as pediatric patient more likely that the leukocytosis, fever, sweats was due to right lower lobe consolidation (6) Pharyngitis: Plan: Pt with exudative pharyngitis with negative initial monospot and strep screen rhinovirus positive on [employer] symptoms much improved (7) Psoriatic arthritis: Plan: Diagnosed in June. 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 Takes naproxen and gabapentin as needed. She was supposed to be on methotrexate after IUD and after UTIs cleared up. Affects her back and joints. No psoriasis (8) Fibromyalgia: (9) SOB (shortness of breath): (10) Iron deficiency anemia: Plan: Iron level of 12. Patient reports hx of iron deficiency anemia, but she stopped taking iron. Will resume ferrous sulfate. H&H stable today (11) DVT prophylaxis: Plan: Low risk- encourage ambulation Plan: Patient's mother Marly updated this evening. Phone number is for further updates. Admission and Anticipated Discharge Date Admission Date: February 05, 2021 Subjective patient doing okay today, but not great, still c/o cough, dyspnea, chest pain, pleuritic pain c/o bump over left upper chest wall, I palpated it, it is a more prominent rib, discussed it is likely from coughing + chills but no fever, had night sweats prior to coming into the hospital she doesn't understand why she is so sick, confirms she had sinus infection a few weeks ago, treated with antibiotics also took course of antibiotics for UTI discussed that CT chest did not show blebs (mom with h/o such) but did show right lower lobe consolidation and pleural effusion better on antibiotics awaiting echocardiogram today not eating great, had a pancake, roll, popsicle today, drinking some fluids, no nausea just not hungry called her mom, she says the patient has always been a bit of "a hot mess" in terms of infections, more illness than her other children for instance, after routine dental cleaning she had severe pharyngitis and uvula swelling mother claims that patient had COVID last year, did fine with it, did not want to get a vaccine since she had natural immunity she chose to the get the vaccine prior to coming back to school, got it in November she has not felt well ever since, numerous UTI and sinus infection now with this pneumonia discussed with Dr. Khanna, he can see in consult tomorrow, evaluate the pleural effusion but likely too small to tap Review of Systems Review of Systems: All systems reviewed & are unremarkable except as noted in Subjective Constitutional: + chills, + fatigue and + weakness; no fever and no sweats Respiratory: + cough, + dyspnea on exertion and + pain on inspiration; no dyspnea Cardiovascular: + chest pain; no edema Gastrointestinal: + early satiety; no abdominal pain, no nausea, no vomiting, no constipation and no diarrhea/loose stools Physical Exam Physical Exam: General: well developed, well nourished, thing young female, no acute distress, comfortable Neck: supple, trachea midline, normal thyroid Lungs: decreased breath sounds right base, + crackles in bases, no rhonchi or wheezing, normal respiratory effort, no accessory muscle use, no distress Heart: regular S1 and S2, no murmur, peripheral pulses normal, capillary refill normal, no edema Abdomen: soft, NT, ND, + BS, no hepatomegaly, normal to percussion Extremities: normal in appearance, no cyanosis, no petechiae, strength is 5/5 bilaterally Neuro: awake, cooperative, moves all extremities, no focal motor deficits, CN II-XII intact, sensation in extremities intact, normal speech Skin: warm, dry, no rash, normal turgor Psych: Awake, alert oriented x 3, euthymic affect Results & Data Results & Data ([facility]) Vital Signs (Past 12 Hours) Vital Signs Temp Pulse Resp BP Pulse Ox 02/05/21 06:49 36.4 C L 74 16 114/77 97 Laboratory Results Laboratory Results - last 24 hr 02/04/21 02/04/21 02/05/21 Unknown Unknown 05:36 WBC 7.21 RBC 3.11 L Hgb 9.5 L Hct 28.9 L MCV 92.9 MCH 30.5 MCHC 32.9 RDW Std Deviation 47.8 H RDW Coeff of Romie 13.9 Plt Count 295 MPV 9.5 Immature Gran % (Auto) 0.1 Neut % (Auto) 64.9 Lymph % (Auto) 22.2 Cataño % (Auto) 10.7 Eos % (Auto) 1.8 Baso % (Auto) 0.3 Neut # (Auto) 4.68 Lymph # (Auto) 1.60 Cataño # (Auto) 0.77 H Eos # (Auto) 0.13 Baso # (Auto) 0.02 Immature Gran # (Auto) 0.01 Sodium Potassium Chloride Carbon Dioxide Anion Gap BUN Creatinine Est Cr Clr Drug Dosing Est GFR ( Amer) Est GFR (Non-Af Amer) BUN/Creatinine Ratio Glucose Calcium Total Bilirubin AST ALT Alkaline Phosphatase Total Protein Albumin Globulin Albumin/Globulin Ratio Adenovirus (PCR) Not Detected B. pertussis DNA (PCR) Not Detected B.parapertussis DNA PCR Not Detected C. pneumoniae DNA (PCR) Not Detected Coronavirus OC43 (PCR) Not Detected Coronavirus HKU1 (PCR) Not Detected Coronavirus 229E (PCR) Not Detected COVID-19 Eval Order RESPNP at [facility] SARS-CoV-2 (PCR) Not Detected Coronavirus NL63 (PCR) Not Detected Human Metapneumovir PCR Not Detected Influenza Type A (PCR) Not Detected Influenza Type B (PCR) Not Detected M. pneumoniae (PCR) Not Detected Parainfluenza 1 (PCR) Not Detected Parainfluenza 2 (PCR) Not Detected Parainfluenza 3 (PCR) Not Detected Parainfluenza 4 (PCR) Not Detected RSV (PCR) Not Detected Entero/Rhino (PCR) DETECTED A* 02/05/21 05:36 WBC RBC Hgb Hct MCV MCH MCHC RDW Std Deviation RDW Coeff of Romie Plt Count MPV Immature Gran % (Auto) Neut % (Auto) Lymph % (Auto) Cataño % (Auto) Eos % (Auto) Baso % (Auto) Neut # (Auto) Lymph # (Auto) Cataño # (Auto) Eos # (Auto) Baso # (Auto) Immature Gran # (Auto) Sodium 138 Potassium 4.2 Chloride 108 H Carbon Dioxide 28 Anion Gap 2.0 L BUN 4 L Creatinine 0.57 L Est Cr Clr Drug Dosing 131.3 Est GFR ( Amer) > 150.0 Est GFR (Non-Af Amer) 134.4 BUN/Creatinine Ratio 6.5 L Glucose 91 Calcium 8.6 Total Bilirubin 0.3 AST 11 L ALT 17 Alkaline Phosphatase 70 Total Protein 6.5 Albumin 3.0 L Globulin 3.5 Albumin/Globulin Ratio 0.9 Adenovirus (PCR) B. pertussis DNA (PCR) B.parapertussis DNA PCR C. pneumoniae DNA (PCR) Coronavirus OC43 (PCR) Coronavirus HKU1 (PCR) Coronavirus 229E (PCR) COVID-19 Eval Order SARS-CoV-2 (PCR) Coronavirus NL63 (PCR) Human Metapneumovir PCR Influenza Type A (PCR) Influenza Type B (PCR) M. pneumoniae (PCR) Parainfluenza 1 (PCR) Parainfluenza 2 (PCR) Parainfluenza 3 (PCR) Parainfluenza 4 (PCR) RSV (PCR) Entero/Rhino (PCR) Diagnostic Findings CTA chest: no PE, right lower lobe consolidation and less so in left lower lobe, right sided pleural effusion Medications Administered Current Inpatient Medications Acetaminophen (Acetaminophen 325 Mg Tab) 650 mg PO Q4H PRN PRN Reason: pain/fever Stop: 03/04/21 15:23 Last Admin: 02/05/21 12:57 Dose: 650 mg Documented by: Albuterol (Albut/Ipratrop 3mg/0.5mg Neb 3 Ml Vial) 3 ml NEB QIDR PRN PRN Reason: wheezing Stop: 03/06/21 06:59 Last Admin: 02/04/21 20:13 Dose: 3 ml Documented by: Azithromycin (Azithromycin 250 Mg Tab) 500 mg PO QAM [facility]; Protocol Stop: 02/12/21 08:59 Last Admin: 02/05/21 09:08 Dose: 500 mg Documented by: Diphenhydramine HCl (Diphenhydramine 50 Mg/Ml Vial) 25 mg IV Q6H PRN PRN Reason: swelling Stop: 03/05/21 08:29 Diphenhydramine HCl (Diphenhydramine Capsule 25 Mg Cap) 25 mg PO Q6H PRN PRN Reason: swelling Stop: 03/05/21 08:29 Last Admin: 02/04/21 08:07 Dose: 25 mg Documented by: Ferrous Sulfate (Ferrous Sulfate 325 Mg Tab) [facility] [place] Stop: 03/06/21 09:29 Last Admin: 02/05/21 09:08 Dose: 325 mg Documented by: Fluoxetine HCl (Fluoxetine Hcl 20 Mg Cap) 20 mg PO DAILY [facility] Stop: 03/05/21 08:59 Last Admin: 02/05/21 09:08 Dose: 20 mg Documented by: Gabapentin (Gabapentin 300 Mg Cap) 300 mg PO TID PRN PRN Reason: Pain Stop: 03/04/21 15:23 Ceftriaxone Sodium 2,000 mg/ (Dextrose) 50 mls @ 100 mls/hr IV Q24H [facility]; Protocol Stop: 02/12/21 17:59 Last Infusion: 02/04/21 18:27 Dose: Infused Documented by: Ketorolac Tromethamine (Ketorolac Tromethamine 15 Mg/Ml Vial) 15 mg IV Q6H PRN PRN Reason: Pain Stop: 02/07/21 18:20 Last Admin: 02/05/21 06:51 Dose: 15 mg Documented by: Lactobacillus Acidoph/Casei/Rhamnos (Advanced Probiotic 1250 Mg Capsule) 2 cap PO DAILY JAJA Stop: 03/07/21 12:44 Last Admin: 02/05/21 13:33 Dose: 2 cap Documented by: Morphine Sulfate (Morphine Sulfate 2 Mg/Ml Carp) 2 mg IV Q4H PRN PRN Reason: Pain Stop: 02/16/21 18:20 Last Admin: 02/04/21 05:02 Dose: 2 mg Documented by: Multivitamins (Multivitamin Tab) 1 tab PO DAILY JAJA Stop: 03/05/21 08:59 Last Admin: 02/05/21 09:08 Dose: 1 tab Documented by: Ondansetron HCl (Ondansetron Inj 2 Mg/Ml 2 Ml Vial) 4 mg IV Q6H PRN PRN Reason: Nausea Stop: 03/04/21 15:23 Last Admin: 02/05/21 06:48 Dose: 4 mg Documented by: Polyethylene Glycol (Polyethylene (Miralax) 17 Gm Pack) 17 gm PO DAILY PRN PRN Reason: Constipation Stop: 03/05/21 21:37 Last Admin: 02/04/21 19:37 Dose: 17 gm Documented by: PG Care Time/CCT Total # of Minutes Spent Total Time Spent: 38 Total Time Spent with Patient: Total time spent is greater than 50% in coordination of care (as documented) at patient's floor/unit and/or counseling patient: Coding Level of Care Code 71192 Subseq Hosp Care Lvl 3 (25 - SIGNIFICANT, SEPARATELY IDENTIFIABLE ) Diagnoses UTI (urinary tract infection) N39.0 Pharyngitis J02.9 Psoriatic arthritis L40.50 Fibromyalgia M79.7 SOB (shortness of breath) R06.02 Hypoxia R09.02 Iron deficiency anemia D50.9 DVT prophylaxis Z29.9 Pneumonia J18.9 Pleural effusion J90 Chest pain R07.9
[2021-02-05] MEDS: cefTRIAXone SODIUM 2,000 MG in DEXTROSE 5% 50 ML IV SCH (17:35)
[2021-02-05] MEDS: ALBUT/IPRATROP 3MG/0.5MG NEB 3 ML VIAL NEB PRN (20:26)
[2021-02-05] MEDS: guaiFENesin 600 MG TABCR PO SCH (21:34)
[2021-02-05] MEDS ORDERED: BENZONATATE 100 MG CAPSULE PO PRN (22:29)
[2021-02-05] MEDS: MoRPHine SULFATE 2 MG/ML CARP IV PRN (23:19)
[2021-02-06 06:36] LABS: Basophils # (auto) 0.03 K/uL (0-0.2); Basophils % (auto) 0.4 %; Eosinophils # (auto) 0.25 K/uL (0-0.5); Eosinophils % (auto) 3.5 %; Hematocrit (blood only) 29.7 % (37-47); Hemoglobin 9.8 g/dL (12.0-16.0); Immature Granulocytes # (auto) 0.02 K/uL (0.00-0.02); Immature Granulocytes % (auto) 0.3 %; Lymphocytes % (auto) 22.4 %; Mean Corpuscular Hemoglobin 30.5 pg (25-34); Mean Corpuscular Volume 92.5 fL (80-100); Mean Platelet Volume 9.4 fL (7.4-10.4); Monocytes # (auto) 1.05 K/uL (0.11-0.59); Monocytes % (auto) 14.7 %; Neutrophils # (auto) 4.18 K/uL (1.4-6.5); Neutrophils % (auto) 58.7 %; Platelet Count 310 K/uL (130-400); RDW Coefficient of Variation 13.8 % (11.5-14.5); RDW Standard Deviation 46.9 fL (36.4-46.3); Red Blood Count 3.21 M/uL (4.2-5.4); White Blood Count 7.13 K/uL (4.8-10.8)
[2021-02-06] MEDS: ALBUT/IPRATROP 3MG/0.5MG NEB 3 ML VIAL NEB PRN (07:45)
[2021-02-06] MEDS: guaiFENesin 600 MG TABCR PO SCH ×2 (08:52→20:18)
[2021-02-06] MEDS: FERROUS SULFATE 325 MG TAB PO SCH (08:52)
[2021-02-06] MEDS: MULTIVITAMIN TAB PO SCH (08:53)
[2021-02-06] MEDS: AZITHROMYCIN 250 MG TAB PO SCH (08:53)
[2021-02-06] MEDS: ADVANCED PROBIOTIC 1250 MG CAPSULE PO SCH (08:53)
[2021-02-06] MEDS: FLUoxetine HCL 20 MG CAP PO SCH (08:53)
--- NOTE | 2021-02-06 09:21 | Pulmonary Consultation ---
Date of Consultation February 06, 2021 Assessment & Plan (1) Pleural effusion: (2) Pneumonia: (3) SOB (shortness of breath): (4) Chest pain: Impression: 20-year-old female admitted with Klebsiella pyelonephritis. CT scan yesterday demonstrated small pleural effusions. I performed a bedside ultrasound and there is no significant fluid identified in either hemithorax amenable to thoracentesis. She does have some consolidative changes identified. Recommendations: 1. Pleural effusion: They appear to have resolved on ultrasound today. Review of her I/O indicates that she is over 10 L positive. Would recommend touching her with Lasix. Could consider a follow-up chest x-ray in 1week to ensure the effusions or not reaccumulating. 2. Possible pneumonia: The patient has consolidative changes and its unclear whether these are compressive atelectasis or an infectious etiology. Her white blood cell count is normal and her fever curve is also normal.She is currently on Rocephin 2 g every 24. Azithromycin was added yesterday. I think the patient can de-escalate to Ceftin 500 mg p.o. twice daily with azithromycin 500 mg daily and potentially be discharged from the hospital with radiographic follow-up as noted above. I would be happy to see this patient back in pulmonary follow-up if needed. From my perspective, she appears appropriate to potentially dismissed from the ospital. Thanks for the opportunity participating in the care of this patient. We will sign off at this point time. Please call us if we can be of additional assistance History of Present Illness Attending Physician: Bari Erazo MD History of Present Illness Asked by hospitalist to evaluate the patient with pleural effusions cough and chest discomfort. History is obtained from discussion with the hospitalist and review of electronic medical record. Patient is a 20-year-old femaleWho was admitted to the hospital 02/02/2021 with UTI symptoms. She was found to have Klebsiella pyelonephritis.During the course of her hospitalization she developed an oxygen requirement as well as a cough and some chest discomfort. Her discomfort is in her back over her kidney. She had a chest x-ray performed which was hazy at the bases and was followed with CT scan which showed small bilateral pleural effusions. Pulmonary was consulted for additional evaluation management. Patient's mother has a history of lobectomy and pulmonary blebs with recurrent pneumothoraces. The patient is a non-smoker. No history of vaping. She is a student. She is coughing and experiencing some mild shortness of breath. She is not on oxygen currently. She is not producing any significant phlegm.Her white count and fever curve have normalized. Allergies Allergy/AdvReac Type Severity Reaction Status Date / Time clindamycin Allergy Intermediate Rash Verified 02/02/21 10:05 prednisone AdvReac Mild SWELLING, Unverified 02/02/21 10:05 LEGS NUMB Home Medications Medication Instructions Recorded Confirmed Type naproxen 500 mg tablet 500 mg PO BID PRN 12/10/20 02/02/21 History fluoxetine 20 mg capsule (Prozac) 20 mg PO DAILY 01/16/21 02/02/21 History gabapentin 300 mg capsule 300 mg PO TID PRN 02/02/21 02/02/21 History multivitamin 1 tab PO DAILY 02/02/21 02/02/21 History Patient History Medical History Psoriatic arthritis Social History Smoking Status: Never smoker Hx Alcohol Use: Yes Hx Substance Use: No Preferred Language: Romanian Communication Ability: Effective Jitterbug Operator Required: No Beliefs That Will Affect Care: None Current Living Situation: Other Current Living Situation Comment: 3 roomates Other Information That Helps Us Care for You: No Feels Safe at Home: Yes Safety Concerns: Feels Safe At This Time Assistive Devices: Oxygen - Continuous Review of Systems Review of Systems: All systems reviewed & are unremarkable except as noted in HPI & below Physical Exam Constitutional: WD/WN, vitals as above Neck: trachea midline, no thyromegaly Respiratory: normal respiratory effort, lungs clear to auscultation Cardiovascular: RRR, no murmur, no edema Gastrointestinal (Abdomen): normal bowel sounds, soft, nontender, no hepatosplenomegaly Musculoskeletal: Extremities: extremities normal to inspection Skin: no rashes, warm and dry Neurologic: Nonfocal exam Lymphatic: no cervical lymphadenopathy Results & Data Results & Data ([facility]) Vital Signs (Past 12 Hours) Vital Signs Temp Pulse Resp BP Pulse Ox 02/06/21 07:45 71 16 99 02/06/21 07:27 36.6 C 71 14 99/63 L 96 02/05/21 22:34 36.7 C 88 16 108/72 98 Laboratory Results 02/06/21 05:47 02/05/21 05:[address] ANGIOGRAPHY OF THE CHEST, PULMONARY EMBOLUS PROTOCOL 02/05/21 CLINICAL HISTORY: Shortness of breath. Chest pain. Evaluate for pulmonary embolus. COMPARISON STUDY: Chest radiograph February 04, 2021. TECHNIQUE: Following IV administration of 74 mL of Optiray, helical axial images of the chest were obtained utilizing the pulmonary embolus protocol. Maximal intensity projections and sagittal and coronal reformats were viewed on an independent 3D workstation. IV contrast was administered without complication. Automated exposure control was utilized for the study. A dose lowering technique was utilized adhering to the principles of ALARA. CT DOSE: 210.16 mGy.cm FINDINGS: No pulmonary emboli are identified. There is no thoracic aortic dissection. Size of the heart is normal. There is no pericardial effusion. Small to moderate right and small left pleural effusions are noted. There is extensive right lower lobe airspace opacity. Moderate left lower lobe airspace opacities. There is no pneumothorax. Central airways are patent. No thoracic lymphadenopathy is noted. No acute fracture or suspicious lesion is identified within visualized portions of the bony thorax. Upper abdomen is unremarkable. IMPRESSION: 1. No pulmonary emboli identified. 2. Small to moderate right and small left pleural effusions. 3. Extensive right lower lobe consolidation and moderate left lower lobe airspace opacity. The findings favor pneumonia. PG Care Time/CCT Total # of Minutes Spent Total Time Spent with Patient: Total time spent is greater than 50% in coordination of care (as documented) at patient's floor/unit and/or counseling patient: Coding Level of Care Code 76422 Inpt Consult Level 4 Diagnoses Pleural effusion J90 Pneumonia J18.9 SOB (shortness of breath) R06.02 Chest pain R07.9
[2021-02-06] MEDS: ONDANSETRON INJ 2 MG/ML 2 ML VIAL IV PRN (09:39)
[2021-02-06] MEDS: cefUROXime axetil 500 MG TAB PO SCH ×2 (10:36→20:18)
--- NOTE | 2021-02-06 12:49 | XCELERA ---
[id number] \\[id number]
[2021-02-06] MEDS: ACETAMINOPHEN 325 MG TAB PO PRN (13:35)
[2021-02-06] MEDS: KETOROLAC TROMETHAMINE 15 MG/ML VIAL IV PRN (15:47)
--- NOTE | 2021-02-06 19:12 | Hospitalist Progress Note ---
Date of Service February 06, 2021 Assessment & Plan (1) Pneumonia: Plan: CT chest shows right lower lobe consolidation, smaller left lower lobe infiltrate small to moderate right pleural effusion, small left pleural effusion this would explain night sweats, fever/chills, fatigue, pleuritic chest pain, leukocytosis was on Rocephin for UTI, WBC went down, no fever add Zithromax 500mg daily for atypical coverage but with lobar consolidation more likely S pneumo consult pulmonology feels effusions are too small to tap recommends de- escalation of antibiotics repeat chest x-ray as an outpatient (2) Pleural effusion: Plan: likely parapneumonic consult pulmonology to evaluate tomorrow (3) Hypoxia: Plan: SOB with hypoxia in morning on 02/04. O2 sat of 88%. she is 95-97% on 1L, oxygen can be removed initially thought to have viral pneumonia based on pharyngitis, appearance of CXR COVID negative, + rhinovirus now CTA chest with consolidation, explains hypoxia flutter valve QID, Mucinex (4) Chest pain: Plan: central, pleuritic in nature EKG with some TW inversions in V1-V4 but likely due to being young patient no evidence of pericarditis on EKG echo done, read as normal no pericardial effusion most logical etiology would be consolidation, pneumonia (5) UTI (urinary tract infection): Plan: Initial concerns for pyleonephritis but US of kidneys does not suggest parenchymal infection or cystitis. UTI symptoms have resolved. White count has normalized. Final UC&S growing Klebsiella sensitive to IV ceftriaxone, finish 7 days of treatment prone to UTI in past, numerous issues as pediatric patient more likely that the leukocytosis, fever, sweats was due to right lower lobe consolidation (6) Pharyngitis: Plan: Pt with exudative pharyngitis with negative initial monospot and strep screen rhinovirus positive on [employer] symptoms much improved (7) Psoriatic arthritis: Plan: Diagnosed in June. 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 Takes naproxen and gabapentin as needed. She was supposed to be on methotrexate after IUD and after UTIs cleared up. Affects her back and joints. No psoriasis (8) Fibromyalgia: (9) SOB (shortness of breath): (10) Iron deficiency anemia: Plan: Iron level of 12. Patient reports hx of iron deficiency anemia, but she stopped taking iron. Will resume ferrous sulfate. H&H stable (11) DVT prophylaxis: Plan: Low risk- encourage ambulation Plan: Patient's mother Marly updated. Phone number is for further updates. Admission and Anticipated Discharge Date Admission Date: February 05, 2021 Subjective Patient states she feels tired. She still having a cough mildly productive no other complaints or problems eating okay not walking around the hallways yet Review of Systems Review of Systems: Mild distress and fatigue no headache, no visual changes no speech or swallowing issues no chest pain, pressure or palpitations Shortness of breath nonproductive cough no abdominal pain, nausea or vomiting, diarrhea or constipation no dysuria, hematuria or frequency no focal joint pain or swelling no back pain, CVA tenderness or radicular pain no bruising, bleeding or rashes no focal signs of weakness or numbness or altered sensation no complaints of anxiety or depression.. Physical Exam Physical Exam: The patient appeared well nourished and normally developed. Vital signs as documented. Head exam is normocephalic atraumatic Neck is without JVD, thyromegaly, or carotid bruits. Lungs are clear to auscultation, maybe slightly diminished at the bases left greater than right Cardiac exam, Rhythm is regular.. No murmurs, rubs or gallops. Abdominal exam reveals normal bowel sounds, soft non tender, no masses Extremities are nonedematous and both pedal pulses are present Neurologic exam is alert and oriented, no focal loss of strength or sensation Skin is without bruises or rashes Psychologically is without concerns for anxiety or depression Results & Data Results & Data ([facility]) Vital Signs (Past 12 Hours) Vital Signs Temp Pulse Resp BP Pulse Ox 02/06/21 15:33 98.1 F 64 14 111/71 97 02/06/21 07:45 71 16 99 02/06/21 07:27 97.9 F 71 14 99/63 L 96 PG Care Time/CCT Total # of Minutes Spent Total Time Spent with Patient: Total time spent is greater than 50% in coordination of care (as documented) at patient's floor/unit and/or counseling patient: Coding Level of Care Code 89012 Subseq Hosp Care Lvl 2 Diagnoses Pneumonia J18.9 Pleural effusion J90 Hypoxia R09.02 Chest pain R07.9 UTI (urinary tract infection) N39.0 Pharyngitis J02.9 Psoriatic arthritis L40.50 Fibromyalgia M79.7 SOB (shortness of breath) R06.02 Iron deficiency anemia D50.9 DVT prophylaxis Z29.9
[2021-02-07] MEDS ORDERED: AZITHROMYCIN 250 MG TAB PO SCH (09:00)
[2021-02-07] MEDS: cefUROXime axetil 500 MG TAB PO SCH (10:14)
[2021-02-07] MEDS: MULTIVITAMIN TAB PO SCH (10:14)
[2021-02-07] MEDS: guaiFENesin 600 MG TABCR PO SCH ×2 (10:14→20:40)
[2021-02-07] MEDS: FLUoxetine HCL 20 MG CAP PO SCH (10:15)
[2021-02-07] MEDS: ADVANCED PROBIOTIC 1250 MG CAPSULE PO SCH (10:15)
[2021-02-07] MEDS: FERROUS SULFATE 325 MG TAB PO SCH (10:15)
[2021-02-07] MEDS: ONDANSETRON INJ 2 MG/ML 2 ML VIAL IV PRN ×2 (12:06→19:32)
[2021-02-07] MEDS: KETOROLAC TROMETHAMINE 15 MG/ML VIAL IV PRN (12:13)
[2021-02-07] MEDS ORDERED: PHENAZOPYRIDINE HCL 200 MG TAB PO STA (15:01)
[2021-02-07] MEDS ORDERED: levoFLOXacin 500 MG TAB PO STA (15:02)
--- NOTE | 2021-02-07 15:23 | Hospitalist Progress Note ---
Date of Service February 07, 2021 Assessment & Plan (1) Pneumonia: Plan: CT chest shows right lower lobe consolidation, smaller left lower lobe infiltrate bio fire confirms enterovirus has been covered with antibiotics with concern for bacterial infection also small to moderate right pleural effusion, small left pleural effusion this would explain night sweats, fever/chills, fatigue, pleuritic chest pain, leukocytosis Has had vomiting after oral antibiotics will transition to levofloxacin to cover both strep gram-negative's and atypicals. Legionella antigen sent and urine given return of somatic complaints will change antibiotics and keep another day (2) Pleural effusion: Plan: likely parapneumonic consult pulmonology us feels too small to tap, will see in follow up and have repeat cxr as an outpt (3) Hypoxia: Plan: SOB with hypoxia in morning on 02/04. O2 sat of 88%. she is 95-97% without oxygen initially thought to have viral pneumonia based on pharyngitis, appearance of CXR COVID negative, + enerovirus/ rhinovirus now CTA chest with consolidation, explains hypoxia flutter valve QID, Mucinex (4) Chest pain: Plan: central, pleuritic in nature EKG with some TW inversions in V1-V4 but likely due to being young patient no evidence of pericarditis on EKG echo done, read as normal no pericardial effusion most logical etiology would be consolidation, pneumonia (5) UTI (urinary tract infection): Plan: Initial concerns for pyleonephritis but US of kidneys does not suggest parenchymal infection or cystitis. UTI symptoms have resolved. White count has normalized. Final UC&S growing Klebsiella sensitive to IV ceftriaxone, did have some intolerance to po ceftin will try levaquin prone to UTI in past, numerous issues as pediatric patient more likely that the leukocytosis, fever, sweats was due to right lower lobe consolidation (6) Pharyngitis: Plan: Pt with exudative pharyngitis with negative initial monospot and strep screen rhinovirus positive on [employer] symptoms much improved (7) Psoriatic arthritis: Plan: Diagnosed in June. 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 Takes naproxen and gabapentin as needed. She was supposed to be on methotrexate after IUD and after UTIs cleared up. Affects her back and joints. No psoriasis (8) Fibromyalgia: (9) SOB (shortness of breath): (10) Iron deficiency anemia: Plan: Iron level of 12. Patient reports hx of iron deficiency anemia, but she stopped taking iron. Will resume ferrous sulfate. H&H stable (11) DVT prophylaxis: Plan: Low risk- encourage ambulation Plan: Patient's mother Marly updated. Phone number is for further updates. Admission and Anticipated Discharge Date Admission Date: February 05, 2021 Subjective Patient states she feels tired. She still having a cough mildly productive no other complaints patient had recurrence of dysuria last evening and is had vomitus after her a.m. pills this morning, reportedly was mostly pills fragments she is able to eat lunch without difficulty because of increasing concerns of recurrence of dysuria coughing and fatigue patient will be kept an additional day Review of Systems Review of Systems: Mild distress and fatigue no headache, no visual changes no speech or swallowing issues no chest pain, pressure or palpitations Shortness of breath nonproductive cough no abdominal pain, nausea or vomiting, diarrhea or constipation no dysuria, hematuria or frequency no focal joint pain or swelling no back pain, CVA tenderness or radicular pain no bruising, bleeding or rashes no focal signs of weakness or numbness or altered sensation no complaints of anxiety or depression.. Respiratory: + cough, + dyspnea on exertion and + pain on inspiration; no dyspnea Gastrointestinal: + nausea and + vomiting Physical Exam Physical Exam: The patient appeared well nourished and normally developed. Vital signs as documented. Head exam is normocephalic atraumatic Neck is without JVD, thyromegaly, or carotid bruits. Lungs are clear to auscultation, maybe slightly diminished at the bases left greater than right Cardiac exam, Rhythm is regular.. No murmurs, rubs or gallops. Abdominal exam reveals normal bowel sounds, soft non tender, no masses Extremities are nonedematous and both pedal pulses are present Neurologic exam is alert and oriented, no focal loss of strength or sensation Skin is without bruises or rashes Psychologically is without concerns for anxiety or depression Results & Data Results & Data ([facility]) Vital Signs (Past 12 Hours) Vital Signs Temp Pulse Resp BP BP Pulse Ox 02/07/21 13:07 98.2 F 82 16 112/75 124/85 97 02/07/21 07:33 98.2 F 82 16 124/85 97 PG Care Time/CCT Total # of Minutes Spent Total Time Spent with Patient: Total time spent is greater than 50% in coordination of care (as documented) at patient's floor/unit and/or counseling patient: Coding Level of Care Code 93671 Subseq Hosp Care Lvl 2 Diagnoses Pneumonia J18.9 Pleural effusion J90 Hypoxia R09.02 Chest pain R07.9 UTI (urinary tract infection) N39.0 Pharyngitis J02.9 Psoriatic arthritis L40.50 Fibromyalgia M79.7 SOB (shortness of breath) R06.02 Iron deficiency anemia D50.9 DVT prophylaxis Z29.9
[2021-02-07] MEDS: MoRPHine SULFATE 2 MG/ML CARP IV PRN (19:32)
[2021-02-07] MEDS: diphenhydrAMINE Capsule 25 MG CAP PO PRN (20:40)
[2021-02-08] MEDS: diphenhydrAMINE Capsule 25 MG CAP PO PRN (05:37)
[2021-02-08 05:45] LABS: Hematocrit (blood only) 33.7 % (37-47); Mean Corpuscular Hemoglobin 30.1 pg (25-34); Mean Corpuscular Hgb Conc 32.6 g/dL (32-36); Mean Corpuscular Volume 92.3 fL (80-100); Mean Platelet Volume 8.8 fL (7.4-10.4); Platelet Count 392 K/uL (130-400); RDW Coefficient of Variation 13.5 % (11.5-14.5); RDW Standard Deviation 45.9 fL (36.4-46.3); Red Blood Count 3.65 M/uL (4.2-5.4)
[2021-02-08 06:14] LABS: Albumin Level 3.3 gm/dl (3.4-5.0); Creatinine Clr Calc Pharmacy 98.5 ml/min; Est GFR (African American) 131.8 ml/min; Est GFR (Non-African American) 113.7 ml/min; Potassium 3.9 mmol/L (3.5-5.1)
[2021-02-08 06:17] LABS: Albumin Globulin Ratio 0.8 (0.9-2); Bilirubin,Total 0.2 mg/dl (0.2-1); Globulin 3.9 gm/dl (2.5-4.0); Total Protein 7.2 gm/dl (6.4-8.2)
[2021-02-08] MEDS ORDERED: levoFLOXacin 500 MG TAB PO SCH (11:00)
[2021-02-08] MEDS ORDERED: DOXYCYCLINE HYCLATE 100 MG CAP PO STA (11:01)
[2021-02-08] MEDS: FERROUS SULFATE 325 MG TAB PO SCH (12:23)
[2021-02-08] MEDS: ADVANCED PROBIOTIC 1250 MG CAPSULE PO SCH (12:24)
[2021-02-08] MEDS: FLUoxetine HCL 20 MG CAP PO SCH (12:24)
[2021-02-08] MEDS: MULTIVITAMIN TAB PO SCH (12:25)
[2021-02-08] MEDS: guaiFENesin 600 MG TABCR PO SCH (12:26)
--- NOTE | 2021-02-08 13:13 | XRay Report ---
TWO VIEW CHEST CLINICAL HISTORY: Follow-up pneumonia/pleural effusion. FINDINGS: PA and lateral chest radiographs are compared to study dated 02/04/2021 and correlated with chest CT dated 02/05/2021. The cardiomediastinal silhouette is unremarkable. Airspace consolidation at the lung bases has resolved as compared to 02/04/2021. No residual pleural effusion is identified. There is no pneumothorax. The bony thorax appears intact. IMPRESSION: The lungs are clear. Airspace consolidation and pleural effusions have resolved as compar ed to 02/04/2021. ACT 112: Negative or not required by law. Electronically signed by: Qamar Benítez M.D. 02/08/2021 1:12 PM
--- NOTE | 2021-02-08 19:03 | Discharge Summary ---
Date of Service February 08, 2021 Admission HPI Per Admitting Provider Azeb Ardon is a 20 year old female who presents to the ER with UTI symptoms. Initial symptoms started on December 25 with urinary frequency and dysuria. She was not seen by a healthcare provider for 2 weeks but was started on Macrobid in mid-December. Ad the same time she was also diagnosed with a sinus infection and treated with 7 days of amoxicillin. Her symptoms improved for 2-3 days but then returned. On Jan 27 she went back to [facility] and took a urine sample but initially not given antibiotics. 3 days ago on Saturday she was told she had a UTI and was prescribed and Macrobid again but only picked this up today. She now has worsening symptoms since Saturday with chills, urinary frequency, dysuria and right flank pain. Urine culture from [facility] grew Klebsiella pneumonia grew with resistance to ampicillin was noted. Sensitive to ceftriaxone. In the ER she was diagnosed with pyelonephritis and treated with IV cefepime. She was referred to Medicine for admission and ongoing management of pyelonephritis. Principal Diagnosis Klebsiella urinary tract infection present on admission Enterovirus/rhinovirus pneumonia with pleural effusionsresolved Persistent dysuria at time of discharge Discharge Exam The patient appeared well Vital signs as documented. Lungs are clear to auscultation and appear unlabored Cardiac exam, Rhythm is regular.. No murmurs, rubs or gallops. Abdominal exam reveals normal bowel sounds, soft non tender, no masses Extremities are nonedematous and both pedal pulses are normal. Neurologic exam is alert and oriented, no focal loss of strength or sensation Skin is without bruises or rashes Psychologically is without concerns for anxiety or depression. Discharge Data Allergies Allergy/AdvReac Type Severity Reaction Status Date / Time clindamycin Allergy Intermediate Rash Verified 02/02/21 10:05 prednisone AdvReac Mild SWELLING, Unverified 02/02/21 10:05 LEGS NUMB Consultations 02/02/21 12:25 ED Decision to Admit Stat 02/05/21 20:54 Consult Pulmonology Routine Ordered Studies 02/02/21 10:13 US renal/blad retro comp Stat 02/05/21 05:40 CT angio chest PE protocol Stat Hospital Course (1) Pneumonia: Resolved repeat chest x-ray on 02/08 shows complete resolution of effusions and infiltrates CT chest shows right lower lobe consolidation, smaller left lower lobe infiltrate bio fire confirms enterovirus has been covered with antibiotics with concern for bacterial infection also Has had vomiting after oral antibiotics Ceftin azithromycin and levofloxacin to cover both strep gram-negative's and atypicals. Legionella antigen sent and urine Attempted to doses of doxycycline once again with GI side effects. Since the patient has a documented viral pneumonia and complete resolution on exam and chest x-ray will not use antibiotics to cover any possible bacterial lung infections. (2) Pleural effusion: Resolved will follow up as an outpatient with pulmonary medicine (3) Hypoxia: Resolved initially thought to have viral pneumonia based on pharyngitis, appearance of CXR COVID negative, + enerovirus/ rhinovirus (4) Chest pain: central, pleuritic in nature EKG with some TW inversions in V1-V4 but likely due to being young patient no evidence of pericarditis on EKG echo done, read as normal no pericardial effusion most logical etiology would be consolidation, pneumonia (5) UTI (urinary tract infection): Initial concerns for pyleonephritis but US of kidneys does not suggest parenchymal infection or cystitis. UTI symptoms have resolved. White count has normalized. Final UC&S growing Klebsiella sensitive to penicillins will discharge on Augmentin 875 twice daily to complete her course however repeat urinalysis on 02/07 is pending at time of discharge and this will be followed up on prone to UTI in past, numerous issues as pediatric patient more likely that the leukocytosis, fever, sweats was due to right lower lobe consolidation secondary to enterovirus pneumonia (6) Pharyngitis: Pt with exudative pharyngitis with negative initial monospot and strep screen rhinovirus positive on [employer] symptoms much improved (7) Psoriatic arthritis: Diagnosed in June. 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 Takes naproxen and gabapentin as needed. She was supposed to be on methotrexate after IUD and after UTIs cleared up. Affects her back and joints. No psoriasis (8) Fibromyalgia: (9) SOB (shortness of breath): (10) Iron deficiency anemia: Iron level of 12. Patient reports hx of iron deficiency anemia, but she stopped taking iron. Will resume ferrous sulfate. Resume multivitamin at time of discharge Patient's mother Marly updated. Phone number is for further updates. In the of discharge I called and left 2 messages for her mother then had requested to call the mother back immediately which I did we discussed the patient's case to her satisfaction and eventually patient was di scharged home Total Time Total Time Spent Total Time Spent (In Minutes): It required greater than 30 minutes to prepare this patient for discharge Discharge Plan Discharge Items Patient Disposition: Home - Self-Care Reason For Visit: PYELONEPHRITIS Discharge Diagnosis: pneumonia, multifocal small fluid collection in lung cavity klebsiella urinary tract infection present on admission Condition on Discharge: Fair Activity: Per Instructions section Activity Comment: no intentional exercise until released by follow up Non-emergency contact: Primary Care Provider and Therapeutic Assistant Call non-emergency contact if: you have any medication questions, your symptoms worsen and you have a fever Follow-up/Referrals: Vitor Khanna MD [Physician] - (SPOKE WITH CATE AND THE OFFICE WILL CALL THE PATIENT WITH A HOSPITAL F/U WITHIN 7-10 DAYS.) PCP,LILIANA [Physician] - ([facility] [place] [place] Navigator- to call to set up an appointment with PCP; then call patient with name and appt time.) Diet: Regular Addtl Attending Provider Instructions: please rest and recover, no intentional exercise until released by follow up physician please complete all of your antibiotics during your stay you are found to be iron deficient, this is important to treat during your recovery, please take a daily multiple vitamin with iron or better yet a vitamin and have your primary care check your iron in a few months, you may also eat foods that contain iron this included meats, seafoods and vegetables mostly of the dark green variety, a complete list is on the [employer] web site Pending Studies at Discharge: No Stand-Alone Forms: [facility] FAB BAG, Smoking Cessation Medications and DC Order Prescriptions: New albuterol sulfate 90 mcg/actuation HFA aerosol inhaler 1 inh inhalation Q6H PRN (Reason: shortness of breath or wheezing) Qty: 6.7 RF: 0 amoxicillin-pot clavulanate [Augmentin] 875-125 mg tablet 1 tab PO BID Qty: 10 RF: 0 Continued naproxen 500 mg Tablet 500 mg PO BID PRN (Reason: Headache) RF: 0 fluoxetine [Prozac] 20 mg Capsule 20 mg PO DAILY RF: 0 multivitamin Tablet 1 tab PO DAILY RF: 0 gabapentin 300 mg capsule 300 mg PO TID PRN (Reason: Pain) RF: 0 Discharge Orders: Discharge Order (Routine); Ordered 02/08/21 Ordered By: Bari Araiza/Other Patient Handouts: When You Have Pneumonia Admission Data Admit Date/Time: 02/05/21 10:16 Attending Provider: Bari Erazo Admit Provider: Hayder Mejia Primary Care Provider: [facility] Other Providers: Hayder Mejia ; Vitor Khanna Other Interventions: Discharge Summary Assessment (RN) Last Done: 02/08/21 13:46 Coding Level of Care Code D/C DAY MANAGEMENT >30 MINS Diagnoses Pneumonia J18.9 Pleural effusion J90 Hypoxia R09.02 Chest pain R07.9 UTI (urinary tract infection) N39.0 Pharyngitis J02.9 Psoriatic arthritis L40.50 Fibromyalgia M79.7 SOB (shortness of breath) R06.02 Iron deficiency anemia D50.9
--- NOTE | 2021-02-16 14:51 | Coding Query ---
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 Please assist us with the question(s) below: Coding Question(s): The Discharge Summary documents, "Pneumonia: Resolved repeat chest x-ray on 02/08 shows complete resolution of effusions and infiltrates CT chest shows right lower lobe consolidation, smaller left lower lobe infiltrate bio fire confirms enterovirus has been covered with antibiotics with concern for bacterial infection also Has had vomiting after oral antibiotics Ceftin azithromycin and levofloxacin to cover both strep gram-negative's and atypicals. Legionella antigen sent and urine Attempted to doses of doxycycline once again with GI side effects. Since the patient has a documented viral pneumonia and complete resolution on exam and chest x-ray will not use antibiotics to cover any possible bacterial lung infections.". It is not clear if possible bacterial lung infections were still possible or ruled-out. Please specify below, in your clinical opinion. ( x) Possible Bacterial Lung Infections were treated during this admission. Please specify further below: ( ) Possible Strep, Gram Negative and atypical bacterial lung infections ( ) Possible Unspecified bacterial lung infections ( x) Other bacterial lung infections. Please Specify____viral ( ) Bacterial Lung Infections are Ruled-Out ( ) Other: Please Specify Physician's Response(s): Thank you Victoria Galan Principal Diagnosis: "that condition established after study, to be chiefly responsible for occasioning the admission of the patient to the hospital for care." Co-Existing Principal Diagnosis: "when two or more diagnoses equally meet the criteria for principal diagnosis as determined by the circumstances of admission, diagnostic work up, and/or therapy provided, and the Alphabetic Index, Tabular List, or another coding guideline does not provide sequencing direction, any one of the diagnoses may be sequenced first." "When the physician has documented what appears to be a current diagnosis in the body of the record, but has not included the diagnosis in the final diagnostic statement, the physician should be asked whether the diagnosis should be added." (Source Coding Clinic 2 QTR90. p3-4) MTDD
== END 2021-02-08 14:30 | disposition home or self-care (01) | DRG 689 ==
LOC: ED 09:33 → 3E 09:33 → SUATTDRO 12:39 → 3E 15:11 → SUATTDRO 02-05 10:16

== ENCOUNTER 2021-02-16 16:30 | Inpatient (IN) ==
--- NOTE | 2021-02-16 16:39 | Emergency Department Note ---
Impression & Plan Sepsis, UTI (urinary tract infection) ED Provider Note NAME: LUKAS TRACEY AGE: 20 SEX: F : 2000 ARRIVES VIA: Walk-In INFORMANT: Patient, ED PROVIDER(S): Amadeo Kohli MD Chief Complaint: Sore throat, leg pain HPI: Patient does present with the above complaints which began last night seem to be acutely worse today. The patient did try taking meloxicam as well as gabapentin but without improvement in symptoms. The patient states that this feels very similar to when she required admission due to concern for a pneumonia. Patient denies any fevers but has felt chilled. The patient denies any nausea or vomiting. 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 The patient did have surgery bilaterally to improve this. The patient denies any recent falls or trauma. The patient denies any recent trauma to the legs. Patient states is bilateral nature. Patient states that his symptoms are progressively worse. Patient does complain of mild pain with swallowing but no difficulty with breathing or handling secretions. Patient does state that one of her classmates was recently admitted for similar symptoms. Patient is vaccinated for Covid. Patient denies control and no history of DVT. Patient was recently discharged on 02/08/2021. Patient did have pyelonephritis that time and was given IV cefepime. ROS: See HPI for pertinent positives and negatives. A total of 10 systems were reviewed and otherwise negative. Past medical history: See below Surgical history: See below Social history: See below Physical Exam: GENERAL: NAD, tearful, wearing a mask, non-toxic. EYE EXAM: Normal conjunctiva. PERRL, no anisocoria and EOM's grossly intact w/o pain. NECK: Supple, no nuchal rigidity, no adenopathy, non-tender. No signs of meningismus. LUNGS: Clear to auscultation. Normal chest wall mechanics. HEART: Tachycardic and regular, no MRG. ABDOMEN: Abdomen soft, non-tender, normo-active bowel sounds, no masses, no rebound or guarding. BACK: No CVA TTP. SKIN: No rashes and no bruising. UPPER EXTREMITIES: Upper extremities are grossly normal. LOWER EXTREMITIES: Grossly normal, no edema. No sensory deficits, good DP pulses bilaterally, good range of motion of the hip knees and ankles with no overlying skin changes throughout. Negative Homans' sign bilaterally. NEURO EXAM: A&O x3, cranial nerves II-XII grossly intact, normal speech, moves all 4 extremities on command w/o issue. Differential diagnoses: Sepsis, UTI, pneumonia, metabolic, electrolyte abnormalities, cardiac sources, intracerebral event, toxicologic, neurologic, as well as other pathologies. Course: Patient was seen and evaluated the bedside. Full history physical exam was performed. EKG interpreted by me Imaging Studies: See Below Cardiac monitoring: An order was placed for continuous cardiac monitoring. The monitor shows a rate of 112 with tachycardic and regular rhythm. MDM: Patient did present due to concern for sore throat as well as leg pain. Blood work was obtained. The patient did have significant white count greater than 30. Given this the patient did have CTs completed of the chest abdomen and pelvis. Patient does have some urothelial thickening but no obvious signs of pneumonia. Negative for PEs. Patient did have transient hypotension which did improve. The patient was never febrile. Given the patient's tachycardia transient hypotension and significant white count believe the patient would be best served inpatient at this time. The patient had already received antibiotics as soon as I had seen the patient's elevated white blood cell count. I did speak with the patient's mother to call with the patient's permission. She is in agreement with plan of care. Patient was admitted by Dr. Pink. 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 Psoriatic arthritis Family History Grandmother (Paternal) Diabetes Grandfather (Paternal) Heart disease Social History Smoking Status: Never smoker Hx Alcohol Use: Yes Hx Substance Use: No Preferred Language: Irish Communication Ability: Effective [employer] Supervisor Required: No Beliefs That Will Affect Care: None marital status: Single Current Living Situation: Other Current Living Situation Comment: 3 roomates Other Information That Helps Us Care for You: No Feels Safe at Home: Yes Safety Concerns: Feels Safe At This Time Assistive Devices: None Allergies Allergies Allergy/AdvReac Type Severity Reaction Status Date / Time clindamycin Allergy Intermediate Rash Verified 02/16/21 17:35 prednisone AdvReac Intermediate SWELLING, Verified 02/16/21 17:35 LEGS NUMB Home Meds Home Medications Medication Instructions Recorded Confirmed naproxen 500 mg tablet 500 mg PO BID PRN 12/10/20 02/16/21 fluoxetine 20 mg capsule (Prozac) 20 mg PO DAILY 01/16/21 02/16/21 gabapentin 300 mg capsule 300 mg PO TID PRN 02/02/21 02/16/21 multivitamin 1 tab PO DAILY 02/02/21 02/16/21 diphenhydramine HCl 25 mg capsule 25 mg PO DIRECTED PRN 02/16/21 02/16/21 (Benadryl) Previous Rx's Medication Instructions Recorded albuterol sulfate 90 mcg/actuation 1 inh INHALATION Q6H PRN #6.7 g 02/07/21 aerosol inhaler Results & Data (ED) Vital Signs Vital Signs - 24 hr 02/16/21 16:33 02/16/21 18:20 02/16/21 20:01 Temperature 37.2 C Temperature Source Temporal Artery Scan Pulse Rate 124 H 86 Pulse Rate [Left Finger] 112 H 86 Pulse Rate from SpO2 Sensor Pulse Rhythm [Left Finger] Regular Pulse Strength [Left Finger] Normal Respiratory Rate 18 20 20 Respiratory Effort / Characteristics Non-Labored Spontaneous Respiratory Depth Normal Normal Blood Pressure 115/65 Blood Pressure [Left Arm] 89/53 L 111/67 Blood Pressure Mean 81 Blood Pressure Mean [Left Arm] 65 81 Blood Pressure Position [Left Arm] Sitting Lying Pulse Oximetry 99 98 95 Oxygen Delivery Method Room Air Room Air Room Air Sepsis Recent Fever Within 48 Hours No Sepsis New/Unexplained Change in Mental Status No Sepsis Action Taken by Nursing No Action Required 02/16/21 20:30 Temperature Temperature Source Pulse Rate 82 Pulse Rate [Left Finger] Pulse Rate from SpO2 Sensor 84 Pulse Rhythm [Left Finger] Pulse Strength [Left Finger] Respiratory Rate 14 Respiratory Effort / Characteristics Respiratory Depth Blood Pressure 108/63 Blood Pressure [Left Arm] Blood Pressure Mean 78 Blood Pressure Mean [Left Arm] Blood Pressure Position [Left Arm] Pulse Oximetry 98 Oxygen Delivery Method Sepsis Recent Fever Within 48 Hours Sepsis New/Unexplained Change in Mental Status Sepsis Action Taken by Shelter Medications Current Medication List: was personally reviewed by me Laboratory Data Attestation: I reviewed the patient's lab results. Result diagrams: 02/16/21 17:08 02/16/21 17:08 Lab Results 02/16/21 02/16/21 02/16/21 Range/Units 17:08 17:08 17:08 WBC 31.86 H* (4.8-10.8) K/uL RBC 3.70 L (4.2-5.4) M/uL Hgb 11.2 L (12.0-16.0) g/dL Hct 33.9 L (37-47) % MCV 91.6 (80-100) fL MCH 30.3 (25-34) pg MCHC 33.0 (32-36) g/dL RDW Std Deviation 46.5 H (36.4-46.3) fL RDW Coeff of Romie 13.9 (11.5-14.5) % Plt Count 397 (130-400) K/uL MPV 8.9 (7.4-10.4) fL Immature Gran % (Auto) 0.3 % Neut % (Auto) 89.6 % Lymph % (Auto) 4.5 % [place] % (Auto) 5.5 % Eos % (Auto) 0.0 % Baso % (Auto) 0.1 % Neut # (Auto) 28.51 H (1.4-6.5) K/uL Lymph # (Auto) 1.44 (1.2-3.4) K/uL [place] # (Auto) 1.75 H (0.11-0.59) K/uL Eos # (Auto) 0.01 (0-0.5) K/uL Baso # (Auto) 0.04 (0-0.2) K/uL Immature Gran # (Auto) 0.11 H (0.00-0.02) K/uL Absolute Nucleated RBC 0.00 (0-0) K/uL Nucleated RBC % (auto) 0.0 % Polychromasia 1+ Peripher Smr Path Cons ESR (0-20) mm/hr Sodium 135 L (136-145) mmol/L Potassium 3.4 L (3.5-5.1) mmol/L Chloride 101 (98-107) mmol/L Carbon Dioxide 25 (21-32) mmol/L Anion Gap 9.0 (3-11) BUN 6 L (7-18) mg/dl Creatinine 0.78 (0.6-1.2) mg/dl Est Cr Clr Drug Dosing 96.0 ml/min Est GFR ( Amer) 127.7 ml/min Est GFR (Non-Af Amer) 110.2 ml/min BUN/Creatinine Ratio 7.8 L (10-20) Glucose 146 H (70-99) mg/dl Lactate (0.4-2.0) mmol/L Calcium 9.2 (8.5-10.1) mg/dl Total Bilirubin 0.4 (0.2-1) mg/dl AST 15 (15-37) U/L ALT 21 (12-78) U/L Alkaline Phosphatase 75 (45-117) U/L C-Reactive Protein (0-0.29) mg/dl Total Protein 8.0 (6.4-8.2) gm/dl Albumin 4.0 (3.4-5.0) gm/dl Globulin 4.0 (2.5-4.0) gm/dl Albumin/Globulin Ratio 1.0 (0.9-2) Procalcitonin (0-0.5) ng/ml Urine Color Urine Appearance (Clear) Urine pH (4.5-7.5) Ur Specific [place] (1.000-1.030) Urine Protein (Negative) Urine Glucose (UA) (Negative) Urine Ketones (Negative) Urine Blood (Negative) Urine Nitrite (Negative) Urine Bilirubin (Negative) Urine Urobilinogen (Negative) Ur Leukocyte Esterase (Negative) Nasal Screen MRSA (PCR) (Negative) IgG (700-1600) mg/dl IgA (70-400) mg/dl IgM (40-230) mg/dl Lyme Disease IgG Ab (Negative) Lyme Disease IgM Ab (Negative) COVID-19 Eval Order SARS-CoV-2 (PCR) (Negative) Monoscreen Negative (Negative) Group A Strep (PCR) (NotDetected) 02/16/21 02/16/21 02/16/21 Range/Units 17:08 17:08 17:08 WBC (4.8-10.8) K/uL RBC (4.2-5.4) M/uL Hgb (12.0-16.0) g/dL Hct (37-47) % MCV (80-100) fL MCH (25-34) pg MCHC (32-36) g/dL RDW Std Deviation (36.4-46.3) fL RDW Coeff of Romie (11.5-14.5) % Plt Count (130-400) K/uL MPV (7.4-10.4) fL Immature Gran % (Auto) % Neut % (Auto) % Lymph % (Auto) % [place] % (Auto) % Eos % (Auto) % Baso % (Auto) % Neut # (Auto) (1.4-6.5) K/uL Lymph # (Auto) (1.2-3.4) K/uL [place] # (Auto) (0.11-0.59) K/uL Eos # (Auto) (0-0.5) K/uL Baso # (Auto) (0-0.2) K/uL Immature Gran # (Auto) (0.00-0.02) K/uL Absolute Nucleated RBC (0-0) K/uL Nucleated RBC % (auto) % Polychromasia Peripher Smr Path Cons ESR 39 H (0-20) mm/hr Sodium (136-145) mmol/L Potassium (3.5-5.1) mmol/L Chloride (98-107) mmol/L Carbon Dioxide (21-32) mmol/L Anion Gap (3-11) BUN (7-18) mg/dl Creatinine (0.6-1.2) mg/dl Est Cr Clr Drug Dosing ml/min Est GFR ( Amer) ml/min Est GFR (Non-Af Amer) ml/min BUN/Creatinine Ratio (10-20) Glucose (70-99) mg/dl Lactate (0.4-2.0) mmol/L Calcium (8.5-10.1) mg/dl Total Bilirubin (0.2-1) mg/dl AST (15-37) U/L ALT (12-78) U/L Alkaline Phosphatase (45-117) U/L C-Reactive Protein 8.72 H (0-0.29) mg/dl Total Protein (6.4-8.2) gm/dl Albumin (3.4-5.0) gm/dl Globulin (2.5-4.0) gm/dl Albumin/Globulin Ratio (0.9-2) Procalcitonin 0.05 (0-0.5) ng/ml Urine Color Urine Appearance (Clear) Urine pH (4.5-7.5) Ur Specific [place] (1.000-1.030) Urine Protein (Negative) Urine Glucose (UA) (Negative) Urine Ketones (Negative) Urine Blood (Negative) Urine Nitrite (Negative) Urine Bilirubin (Negative) Urine Urobilinogen (Negative) Ur Leukocyte Esterase (Negative) Nasal Screen MRSA (PCR) (Negative) IgG 816.0 (700-1600) mg/dl IgA 269.0 (70-400) mg/dl IgM 220.0 (40-230) mg/dl Lyme Disease IgG Ab (Negative) Lyme Disease IgM Ab (Negative) COVID-19 Eval Order SARS-CoV-2 (PCR) (Negative) Monoscreen (Negative) Group A Strep (PCR) (NotDetected) 02/16/21 02/16/21 02/16/21 Range/Units 17:08 17:08 17:23 WBC (4.8-10.8) K/uL RBC (4.2-5.4) M/uL Hgb (12.0-16.0) g/dL Hct (37-47) % MCV (80-100) fL MCH (25-34) pg MCHC (32-36) g/dL RDW Std Deviation (36.4-46.3) fL RDW Coeff of Romie (11.5-14.5) % Plt Count (130-400) K/uL MPV (7.4-10.4) fL Immature Gran % (Auto) % Neut % (Auto) % Lymph % (Auto) % [place] % (Auto) % Eos % (Auto) % Baso % (Auto) % Neut # (Auto) (1.4-6.5) K/uL Lymph # (Auto) (1.2-3.4) K/uL [place] # (Auto) (0.11-0.59) K/uL Eos # (Auto) (0-0.5) K/uL Baso # (Auto) (0-0.2) K/uL Immature Gran # (Auto) (0.00-0.02) K/uL Absolute Nucleated RBC (0-0) K/uL Nucleated RBC % (auto) % Polychromasia Peripher Smr Path Cons Cancelled ESR (0-20) mm/hr Sodium (136-145) mmol/L Potassium (3.5-5.1) mmol/L Chloride (98-107) mmol/L Carbon Dioxide (21-32) mmol/L Anion Gap (3-11) BUN (7-18) mg/dl Creatinine (0.6-1.2) mg/dl Est Cr Clr Drug Dosing ml/min Est GFR ( Amer) ml/min Est GFR (Non-Af Amer) ml/min BUN/Creatinine Ratio (10-20) Glucose (70-99) mg/dl Lactate (0.4-2.0) mmol/L Calcium (8.5-10.1) mg/dl Total Bilirubin (0.2-1) mg/dl AST (15-37) U/L ALT (12-78) U/L Alkaline Phosphatase (45-117) U/L C-Reactive Protein (0-0.29) mg/dl Total Protein (6.4-8.2) gm/dl Albumin (3.4-5.0) gm/dl Globulin (2.5-4.0) gm/dl Albumin/Globulin Ratio (0.9-2) Procalcitonin (0-0.5) ng/ml Urine Color Yellow Urine Appearance Clear (Clear) Urine pH 7.5 (4.5-7.5) Ur Specific [place] 1.003 (1.000-1.030) Urine Protein Negative (Negative) Urine Glucose (UA) Negative (Negative) Urine Ketones Negative (Negative) Urine Blood Negative (Negative) Urine Nitrite Negative (Negative) Urine Bilirubin Negative (Negative) Urine Urobilinogen Negative (Negative) Ur Leukocyte Esterase Negative (Negative) Nasal Screen MRSA (PCR) (Negative) IgG (700-1600) mg/dl IgA (70-400) mg/dl IgM (40-230) mg/dl Lyme Disease IgG Ab Negative (Negative) Lyme Disease IgM Ab Negative (Negative) COVID-19 Eval Order SARS-CoV-2 (PCR) (Negative) Monoscreen (Negative) Group A Strep (PCR) (NotDetected) 02/16/21 02/16/21 02/16/21 Range/Units 17:23 18:48 18:48 WBC (4.8-10.8) K/uL RBC (4.2-5.4) M/uL Hgb (12.0-16.0) g/dL Hct (37-47) % MCV (80-100) fL MCH (25-34) pg MCHC (32-36) g/dL RDW Std Deviation (36.4-46.3) fL RDW Coeff of Romie (11.5-14.5) % Plt Count (130-400) K/uL MPV (7.4-10.4) fL Immature Gran % (Auto) % Neut % (Auto) % Lymph % (Auto) % [place] % (Auto) % Eos % (Auto) % Baso % (Auto) % Neut # (Auto) (1.4-6.5) K/uL Lymph # (Auto) (1.2-3.4) K/uL [place] # (Auto) (0.11-0.59) K/uL Eos # (Auto) (0-0.5) K/uL Baso # (Auto) (0-0.2) K/uL Immature Gran # (Auto) (0.00-0.02) K/uL Absolute Nucleated RBC (0-0) K/uL Nucleated RBC % (auto) % Polychromasia Peripher Smr Path Cons ESR (0-20) mm/hr Sodium (136-145) mmol/L Potassium (3.5-5.1) mmol/L Chloride (98-107) mmol/L Carbon Dioxide (21-32) mmol/L Anion Gap (3-11) BUN (7-18) mg/dl Creatinine (0.6-1.2) mg/dl Est Cr Clr Drug Dosing ml/min Est GFR ( Amer) ml/min Est GFR (Non-Af Amer) ml/min BUN/Creatinine Ratio (10-20) Glucose (70-99) mg/dl Lactate 0.7 (0.4-2.0) mmol/L Calcium (8.5-10.1) mg/dl Total Bilirubin (0.2-1) mg/dl AST (15-37) U/L ALT (12-78) U/L Alkaline Phosphatase (45-117) U/L C-Reactive Protein (0-0.29) mg/dl Total Protein (6.4-8.2) gm/dl Albumin (3.4-5.0) gm/dl Globulin (2.5-4.0) gm/dl Albumin/Globulin Ratio (0.9-2) Procalcitonin (0-0.5) ng/ml Urine Color Urine Appearance (Clear) Urine pH (4.5-7.5) Ur Specific [place] (1.000-1.030) Urine Protein (Negative) Urine Glucose (UA) (Negative) Urine Ketones (Negative) Urine Blood (Negative) Urine Nitrite (Negative) Urine Bilirubin (Negative) Urine Urobilinogen (Negative) Ur Leukocyte Esterase (Negative) Nasal Screen MRSA (PCR) Negative (Negative) IgG (700-1600) mg/dl IgA (70-400) mg/dl IgM (40-230) mg/dl Lyme Disease IgG Ab (Negative) Lyme Disease IgM Ab (Negative) COVID-19 Eval Order SARS-CoV-2 (PCR) (Negative) Monoscreen (Negative) Group A Strep (PCR) NOT DETECTED (NotDetected) 02/16/21 02/16/21 Range/Units 18:48 18:48 WBC (4.8-10.8) K/uL RBC (4.2-5.4) M/uL Hgb (12.0-16.0) g/dL Hct (37-47) % MCV (80-100) fL MCH (25-34) pg MCHC (32-36) g/dL RDW Std Deviation (36.4-46.3) fL RDW Coeff of Romie (11.5-14.5) % Plt Count (130-400) K/uL MPV (7.4-10.4) fL Immature Gran % (Auto) % Neut % (Auto) % Lymph % (Auto) % [place] % (Auto) % Eos % (Auto) % Baso % (Auto) % Neut # (Auto) (1.4-6.5) K/uL Lymph # (Auto) (1.2-3.4) K/uL [place] # (Auto) (0.11-0.59) K/uL Eos # (Auto) (0-0.5) K/uL Baso # (Auto) (0-0.2) K/uL Immature Gran # (Auto) (0.00-0.02) K/uL Absolute Nucleated RBC (0-0) K/uL Nucleated RBC % (auto) % Polychromasia Peripher Smr Path Cons ESR (0-20) mm/hr Sodium (136-145) mmol/L Potassium (3.5-5.1) mmol/L Chloride (98-107) mmol/L Carbon Dioxide (21-32) mmol/L Anion Gap (3-11) BUN (7-18) mg/dl Creatinine (0.6-1.2) mg/dl Est Cr Clr Drug Dosing ml/min Est GFR ( Amer) ml/min Est GFR (Non-Af Amer) ml/min BUN/Creatinine Ratio (10-20) Glucose (70-99) mg/dl Lactate (0.4-2.0) mmol/L Calcium (8.5-10.1) mg/dl Total Bilirubin (0.2-1) mg/dl AST (15-37) U/L ALT (12-78) U/L Alkaline Phosphatase (45-117) U/L C-Reactive Protein (0-0.29) mg/dl Total Protein (6.4-8.2) gm/dl Albumin (3.4-5.0) gm/dl Globulin (2.5-4.0) gm/dl Albumin/Globulin Ratio (0.9-2) Procalcitonin (0-0.5) ng/ml Urine Color Urine Appearance (Clear) Urine pH (4.5-7.5) Ur Specific [place] (1.000-1.030) Urine Protein (Negative) Urine Glucose (UA) (Negative) Urine Ketones (Negative) Urine Blood (Negative) Urine Nitrite (Negative) Urine Bilirubin (Negative) Urine Urobilinogen (Negative) Ur Leukocyte Esterase (Negative) Nasal Screen MRSA (PCR) (Negative) IgG (700-1600) mg/dl IgA (70-400) mg/dl IgM (40-230) mg/dl Lyme Disease IgG Ab (Negative) Lyme Disease IgM Ab (Negative) COVID-19 Eval Order Covid19 at [facility] SARS-CoV-2 (PCR) NEGATIVE (Negative) Monoscreen (Negative) Group A Strep (PCR) (NotDetected) Administered Medications Ampicillin Sodium/Sulbactam Sodium 3,000 mg/ Sodium Chloride 108 mls @ 200 mls/hr IV Q6H JAJA; Protocol Stop: 02/23/21 20:59 Last Admin: 02/16/21 23:30 Dose: 200 mls/hr Documented by: [id number] Discontinued Medications Amoxicillin/Clavulanate Potassium (Amoxicillin/Clavulanate 875 Mg Tab) 1 tab PO NOW ONE Stop: 02/16/21 16:50 Last Admin: 02/16/21 17:07 Dose: Not Given Documented by: [id number] Dexamethasone (Dexamethasone Sod Inj 4 Mg/Ml Vial) 10 mg IV NOW STA Stop: 02/16/21 16:50 Last Admin: 02/16/21 17:06 Dose: 10 mg Documented by: [id number] Sodium Chloride (Nss 1000ml) 1,000 mls @ 999 mls/hr IV .Q1H1M ONE Stop: 02/16/21 17:49 Last Infusion: 02/16/21 20:00 Dose: 0 mls/hr Documented by: [id number] Admin: 02/16/21 17:03 Dose: 999 mls/hr Documented by: [id number] Piperacillin Sod/Tazobactam Sod (Zosyn) 4.5 gm in 120 mls @ 240 mls/hr IV NOW ONE Stop: 02/16/21 18:54 Last Infusion: 02/16/21 20:25 Dose: 0 mls/hr Documented by: [id number] Admin: 02/16/21 19:40 Dose: 240 mls/hr Documented by: [id number] Sodium Chloride (Nss 1000ml) 1,000 mls @ 999 mls/hr IV .Q1H1M ONE Stop: 02/16/21 19:25 Last Infusion: 02/16/21 20:25 Dose: 0 mls/hr Documented by: [id number] Admin: 02/16/21 18:45 Dose: 999 mls/hr Documented by: [id number] Sodium Chloride (Nss 1000ml) 500 mls @ 999 mls/hr IV .Q31M ONE Stop: 02/16/21 20:06 Last Infusion: 02/16/21 21:14 Dose: 0 mls/hr Documented by: [id number] Admin: 02/16/21 20:41 Dose: 999 mls/hr Documented by: [id number] Ioversol (Optiray 320 125ml) 118 ml IV ONCE ONE Stop: 02/16/21 19:12 Last Admin: 02/16/21 19:20 Dose: 118 ml Documented by: [id number] Ketorolac Tromethamine (Ketorolac Tromethamine 15 Mg/Ml Vial) 10 mg IV NOW ONE Stop: 02/16/21 16:50 Last Admin: 02/16/21 17:05 Dose: 10 mg Documented by: [id number] Morphine Sulfate (Morphine Sulfate 2 Mg/Ml Carp) 2 mg IV NOW STA Stop: 02/16/21 19:37 Last Admin: 02/16/21 20:00 Dose: 2 mg Documented by: [id number] Ondansetron HCl (Ondansetron Inj 2 Mg/Ml 2 Ml Vial) 4 mg IV NOW STA Stop: 02/16/21 16:50 Last Admin: 02/16/21 17:05 Dose: 4 mg Documented by: [id number] Imaging Data Radiologist's Impression: Abdomen/Pelvis CT 02/16/21 18:25 CT ANGIOGRAM OF THE CHEST; CT SCAN OF THE ABDOMEN AND PELVIS WITH IV CONTRAST CLINICAL HISTORY: Leukocytosis. Chills. Sore throat. Dysphagia. COMPARISON STUDY: Chest CT dated 02/05/2021. Abdominal CT dated 01/16/2021. TECHNIQUE: Following the IV administration of 118 of Optiray 320, CT angiogram of the chest is performed from the upper abdomen to the thoracic inlet utilizing the pulmonary embolus protocol. Images are reviewed in the axial, sagittal, coronal planes. 3-D MIPS images are created and assessed. Subsequently, CT scan of the abdomen and pelvis was performed from the lung bases to the proximal femora. Images are reviewed in the axial, sagittal, and coronal planes. IV contrast was administered without complication. A dose lowering technique was utilized adhering to the principles of ALARA. CT DOSE: 508.21 mGy.cm FINDINGS: CHEST: Thyroid: Imaged portions of the thyroid gland are normal in size and attenuation. Thoracic aorta: The thoracic aorta is normal in caliber and demonstrates standard 3-vessel arch anatomy. No dissection is seen. Pulmonary vasculature: The pulmonary trunk is normal in caliber. There are no filling defects identified in the main, lobar, or segmental pulmonary arteries to indicate pulmonary embolus. Heart: The heart is normal in size and without pericardial effusion. Lungs and pleural spaces: There is minimal dependent atelectasis. No airspace consolidation or pleural effusion is identified. The trachea and central airways are clear. Mild peribronchial thickening is observed. Mediastinum: There is no mediastinal lymphadenopathy. Vivian: Clear. Axillae: There is no axillary lymphadenopathy. Bony thorax: No lytic or blastic lesions are identified. ABDOMEN AND PELVIS: Liver: The contrast-enhanced liver is normal in size, contour, and attenuation. There is no intrahepatic or ductal dilatation. The hepatic veins and portal veins are patent. Gallbladder: Unremarkable. Spleen: Normal in size and attenuation. Pancreas: Unremarkable. Adrenal glands: Unremarkable. Kidneys: The contrast enhanced kidneys are normal in size and without hydronephrosis. The kidneys enhance symmetrically. Mild urothelial thickening and enhancement is noted in both ureters. Abdominal vasculature: The abdominal aorta is normal in course and caliber. Bowel: There is moderate colonic fecal retention. No bowel obstruction is seen. The appendix is well-visualized and normal. Peritoneum: There is no intraperitoneal free air or abdominal ascites. There is a small fat-containing umbilical hernia. Lymphadenopathy: None. Pelvic viscera: The bladder is distended but otherwise normal in appearance. The uterus is normal as visualized. There are bilateral ovarian follicles. A 4.2 cm cyst is noted in the right ovary. Trace free fluid is seen in the cul-de-sac. Skeletal structures: No lytic or blastic lesions are seen. IMPRESSION: 1. There is no evidence of pulmonary embolus in the main, lobar, or segmental pulmonary arteries. 2. There is no airspace consolidation or pleural effusion on today's examination. Pleural effusions and bibasilar consolidation seen on 02/05/2021 have resolved. 3. Mild peribronchial thickening suggests bronchitis/reactive airway disease. Clinical correlation will be required 4. Mild urothelial thickening and enhancement is noted in the ureters. Correlate with clinical findings and urinalysis. 5. A 4.2 cm cyst is noted in the right ovary. 5. Trace nonspecific free fluid in the cul-de-sac is likely physiologic. ACT 112: Negative or not required by law. Electronically signed by: Qamar Benítez M.D. 02/16/2021 7:36 PM Chest CTA 02/16/21 18:27 CT ANGIOGRAM OF THE CHEST; CT SCAN OF THE ABDOMEN AND PELVIS WITH IV CONTRAST CLINICAL HISTORY: Leukocytosis. Chills. Sore throat. Dysphagia. COMPARISON STUDY: Chest CT dated 02/05/2021. Abdominal CT dated 01/16/2021. TECHNIQUE: Following the IV administration of 118 of Optiray 320, CT angiogram of the chest is performed from the upper abdomen to the thoracic inlet utilizing the pulmonary embolus protocol. Images are reviewed in the axial, sagittal, coronal planes. 3-D MIPS images are created and assessed. Subsequently, CT scan of the abdomen and pelvis was performed from the lung bases to the proximal femora. Images are reviewed in the axial, sagittal, and coronal planes. IV contrast was administered without complication. A dose lowering technique was utilized adhering to the principles of ALARA. CT DOSE: 508.21 mGy.cm FINDINGS: CHEST: Thyroid: Imaged portions of the thyroid gland are normal in size and attenuation. Thoracic aorta: The thoracic aorta is normal in caliber and demonstrates s tandard 3-vessel arch anatomy. No dissection is seen. Pulmonary vasculature: The pulmonary trunk is normal in caliber. There are no filling defects identified in the main, lobar, or segmental pulmonary arteries to indicate pulmonary embolus. Heart: The heart is normal in size and without pericardial effusion. Lungs and pleural spaces: There is minimal dependent atelectasis. No airspace consolidation or pleural effusion is identified. The trachea and central airways are clear. Mild peribronchial thickening is observed. Mediastinum: There is no mediastinal lymphadenopathy. Vivian: Clear. Axillae: There is no axillary lymphadenopathy. Bony thorax: No lytic or blastic lesions are identified. ABDOMEN AND PELVIS: Liver: The contrast-enhanced liver is normal in size, contour, and attenuation. There is no intrahepatic or ductal dilatation. The hepatic veins and portal veins are patent. Gallbladder: Unremarkable. Spleen: Normal in size and attenuation. Pancreas: Unremarkable. Adrenal glands: Unremarkable. Kidneys: The contrast enhanced kidneys are normal in size and without hydronephrosis. The kidneys enhance symmetrically. Mild urothelial thickening and enhancement is noted in both ureters. Abdominal vasculature: The abdominal aorta is normal in course and caliber. Bowel: There is moderate colonic fecal retention. No bowel obstruction is seen. The appendix is well-visualized and normal. Peritoneum: There is no intraperitoneal free air or abdominal ascites. There is a small fat-containing umbilical hernia. Lymphadenopathy: None. Pelvic viscera: The bladder is distended but otherwise normal in appearance. The uterus is normal as visualized. There are bilateral ovarian follicles. A 4.2 cm cyst is noted in the right ovary. Trace free fluid is seen in the cul-de-sac. Skeletal structures: No lytic or blastic lesions are seen. IMPRESSION: 1. There is no evidence of pulmonary embolus in the main, lobar, or segmental pulmonary arteries. 2. There is no airspace consolidation or pleural effusion on today's examination. Pleural effusions and bibasilar consolidation seen on 02/05/2021 have resolved. 3. Mild peribronchial thickening suggests bronchitis/reactive airway disease. Clinical correlation will be required 4. Mild urothelial thickening and enhancement is noted in the ureters. Correlate with clinical findings and urinalysis. 5. A 4.2 cm cyst is noted in the right ovary. 5. Trace nonspecific free fluid in the cul-de-sac is likely physiologic. ACT 112: Negative or not required by law. Electronically signed by: Qamar Benítez M.D. 02/16/2021 7:36 PM Discharge Plan Visit Data Chief Complaint: Throat Pain Stated Complaint: THROAT SWELLING, LEGS ARE NUMB ED Provider: Amadeo Kohli Discharge Problem: Sepsis, UTI (urinary tract infection) Patient Disposition: Admitted As Inpatient Discharge Instructions Interventions: ED Discharge Assessment Last Done: 02/16/21 21:46
[2021-02-16] MEDS ORDERED: KETOROLAC TROMETHAMINE 15 MG/ML VIAL IV ONE ×2 (16:49→23:43)
[2021-02-16] MEDS ORDERED: ONDANSETRON INJ 2 MG/ML 2 ML VIAL IV STA (16:49)
[2021-02-16] MEDS ORDERED: AMOXICILLIN/CLAVULANATE 875 MG TAB PO ONE (16:49)
[2021-02-16] MEDS ORDERED: DEXAMETHASONE SOD INJ 4 MG/ML VIAL IV STA (16:49)
[2021-02-16] MEDS ORDERED: SODIUM CHLORIDE 0.9% 1000ML 1,000 ML IV ONE ×2 (16:49→18:25)
[2021-02-16 17:33] LABS: Appearance Urine Clear (Clear); Bilirubin Urine Negative (Negative); Blood Urine Negative (Negative); Color Urine Yellow; Glucose Urine UA Negative (Negative); Ketones Urine Negative (Negative); Leukocyte Esterase Urine Negative (Negative); Nitrite Urine Negative (Negative); Protein Urine Negative (Negative); Specific Gravity Urine 1.003 (1.000-1.030); Urobilinogen Urine Negative (Negative); pH Urine 7.5 (4.5-7.5)
[2021-02-16 17:33] LABS: Hematocrit (blood only) 33.9 % (37-47); Hemoglobin 11.2 g/dL (12.0-16.0); Mean Corpuscular Hemoglobin 30.3 pg (25-34); Mean Corpuscular Volume 91.6 fL (80-100); Mean Platelet Volume 8.9 fL (7.4-10.4); Platelet Count 397 K/uL (130-400); RDW Coefficient of Variation 13.9 % (11.5-14.5); RDW Standard Deviation 46.5 fL (36.4-46.3); White Blood Count 31.86 K/uL (4.8-10.8)
[2021-02-16 17:38] LABS: BUN Creatinine Ratio 7.8 (10-20); Calcium 9.2 mg/dl (8.5-10.1); Est GFR (African American) 127.7 ml/min; Est GFR (Non-African American) 110.2 ml/min; Potassium 3.4 mmol/L (3.5-5.1)
[2021-02-16 17:41] LABS: Bilirubin,Total 0.4 mg/dl (0.2-1)
[2021-02-16 17:53] LABS: Basophils # (auto) 0.04 K/uL (0-0.2); Basophils % (auto) 0.1 %; Eosinophils # (auto) 0.01 K/uL (0-0.5); Immature Granulocytes # (auto) 0.11 K/uL (0.00-0.02); Immature Granulocytes % (auto) 0.3 %; Lymphocytes # (auto) 1.44 K/uL (1.2-3.4); Lymphocytes % (auto) 4.5 %; Monocytes # (auto) 1.75 K/uL (0.11-0.59); Monocytes % (auto) 5.5 %; Neutrophils # (auto) 28.51 K/uL (1.4-6.5); Neutrophils % (auto) 89.6 %; Polychromasia 1+
[2021-02-16] MEDS ORDERED: PIPERACILLIN/TAZOBACTAM 4.5 GM/120 ML BAG IV ONE (18:25)
[2021-02-16] MEDS ORDERED: OPTIRAY 320 125ml IV ONE (19:11)
[2021-02-16] MEDS ORDERED: MoRPHine SULFATE 2 MG/ML CARP IV STA (19:36)
[2021-02-16] MEDS ORDERED: SODIUM CHLORIDE 0.9% 1000ML 500 ML IV ONE (19:36)
--- NOTE | 2021-02-16 19:38 | CT Scan Report ---
CT ANGIOGRAM OF THE CHEST; CT SCAN OF THE ABDOMEN AND PELVIS WITH IV CONTRAST CLINICAL HISTORY: Leukocytosis. Chills. Sore throat. Dysphagia. COMPARISON STUDY: Chest CT dated 02/05/2021. Abdominal CT dated 01/16/2021. TECHNIQUE: Following the IV administration of 118 of Optiray 320, CT angiogram of the chest is perfor med from the upper abdomen to the thoracic inlet utilizing the pulmonary embolus protocol. Images are reviewed in the axial, sagittal, coronal planes. 3-D MIPS images are created and assessed. Subsequen tly, CT scan of the abdomen and pelvis was performed from the lung bases to the proximal femora. Imag es are reviewed in the axial, sagittal, and coronal planes. IV contrast was administered without comp lication. A dose lowering technique was utilized adhering to the principles of ALARA. CT DOSE: 508.21 mGy.cm FINDINGS: CHEST: Thyroid: Imaged portions of the thyroid gland are normal in size and attenuation. Thoracic aorta: The thoracic aorta is normal in caliber and demonstrates standard 3-vessel arch anato my. No dissection is seen. Pulmonary vasculature: The pulmonary trunk is normal in caliber. There are no filling defects identif ied in the main, lobar, or segmental pulmonary arteries to indicate pulmonary embolus. Heart: The heart is normal in size and without pericardial effusion. Lungs and pleural spaces: There is minimal dependent atelectasis. No airspace consolidation or pleura l effusion is identified. The trachea and central airways are clear. Mild peribronchial thickening is observed. Mediastinum: There is no mediastinal lymphadenopathy. Vivian: Clear. Axillae: There is no axillary lymphadenopathy. Bony thorax: No lytic or blastic lesions are identified. ABDOMEN AND PELVIS: Liver: The contrast-enhanced liver is normal in size, contour, and attenuation. There is no intrahepa tic or ductal dilatation. The hepatic veins and portal veins are patent. Gallbladder: Unremarkable. Spleen: Normal in size and attenuation. Pancreas: Unremarkable. Adrenal glands: Unremarkable. Kidneys: The contrast enhanced kidneys are normal in size and without hydronephrosis. The kidneys enh ance symmetrically. Mild urothelial thickening and enhancement is noted in both ureters. Abdominal vasculature: The abdominal aorta is normal in course and caliber. Bowel: There is moderate colonic fecal retention. No bowel obstruction is seen. The appendix is well -visualized and normal. Peritoneum: There is no intraperitoneal free air or abdominal ascites. There is a small fat-containin g umbilical hernia. Lymphadenopathy: None. Pelvic viscera: The bladder is distended but otherwise normal in appearance. The uterus is normal as visualized. There are bilateral ovarian follicles. A 4.2 cm cyst is noted in the right ovary. Trace f ree fluid is seen in the cul-de-sac. Skeletal structures: No lytic or blastic lesions are seen. IMPRESSION: 1. There is no evidence of pulmonary embolus in the main, lobar, or segmental pulmonary arteries. 2. There is no airspace consolidation or pleural effusion on today's examination. Pleural effusions a nd bibasilar consolidation seen on 02/05/2021 have resolved. 3. Mild peribronchial thickening suggests bronchitis/reactive airway disease. Clinical correlation wi ll be required 4. Mild urothelial thickening and enhancement is noted in the ureters. Correlate with clinical findin gs and urinalysis. 5. A 4.2 cm cyst is noted in the right ovary. 5. Trace nonspecific free fluid in the cul-de-sac is likely physiologic. ACT 112: Negative or not required by law. Electronically signed by: Qamar Benítez M.D. 02/16/2021 7:36 PM
--- NOTE | 2021-02-16 20:49 | History & Physical Report ---
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 - SIRS Criteria met, patient septic - lactate not elevated, favorable prognosis - 30ml/Kg fluid bolus - source uncertain: infectious vs. inflammatory - CTA of abdomen showing concern for urothelial thickening, however UA benign. Urine culture drawn. - Chest CTA showing resolution of previous PNA and pleural effusion. COVID 19 neg. Respiratory viral panel ordered - Lyme Neg. - Monospot negative. Strep swab negative. I will obtained CMV antibodies as alternative source of mono-like illness. - GC/Chlamydia ordered (to rule out gonococcal pharyngitis) - no diarrhea or skin findings on exam - patient does have bilateral tonsillar exudates - I recommend she continue treatment with Unasyn for possible bacterial tonsillitis (anaerobic vs group C strep as origin?). Throat culture ordered. - follow blood cultures - elevated ESR and CRP could also suggest inflammatory source of sepsis. Given underlying autoimmune disease, could possibly be a post-infectious inflammatory response syndrome. Decadron given in ED (2) Leukocytosis: Plan: - WBC 31 - neurophil predominance suggestive of bacterial origin, however negative procal suggests viral pathology - infectious work up as above - peripheral smear ordered - trend CBC (3) Psoriatic arthritis: Plan: - history of - not currently on immunosuppressants (4) Iron deficiency anemia: Plan: - Hgb 11.2 - iron level low at 12 on 02/03 - continue ferrous sulfate supplement (5) Hypokalemia: Plan: - K mildly low at 3.4 - NSS with Kcl - repeat BMP in am DVT ppx: Lovenox Diet: Regular Dispo: Med/tele Code: Full, I discussed with patient History of Present Illness Primary Care Provider: [facility] Azeb is a 20 yo female with a PMHx of psoriatic arthritis who presented for evaluation of sore throat. Of note, she was hospitalized at [facility] from 02/02/21 to 02/08/21 for a urinary tract infection, at which time she was also found to have a viral pneumonia and pharyngitis (serology positive for enterovirus). Her urine culture from previous admission grew out hart-sensitive Klebsiella and she was sent out with a script of Augmentin. She completed the Augmentin course two days ago. She says her urinary symptoms have totally resolved, as had her upper respiratory symptoms. However, last night, she devleoped a bad sore throat and bilateral leg pain. 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 Azeb denies any fevers, nausea/vomiting or diarrhea. She is sexually active with her boyfriend - she denies any vaginal discharge or pelvic pain. She denies any known sick contacts. She was vaccinated against COVID 19. She is not currently on any immunosuppressants for her psoriatic arthritis - she is supposed to be starting methotrexate, but she had to hold off because she became ill earlier this month. 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 She is from [place] but her family recently moved to [place]. In the ED, she was afebrile with a HR of 112 and a BP of 89/53. Her oxygen saturation and RR were normal. Her WBC was markedly elevated to 31 with neutrophil predom. Procal not elevated. Lactate not elevated. Strep neg. Monospot neg. COVID 19 neg. UA normal. Nasal MRSA swab negative. Urine and blood cultures pending. ESR elevated to 39, CRP to 8.72. K low at 3.4; CMP otherwise WNL. Hgb 11.2. CTA of chest and abdomen showed resolution of her previous pneumonia and associated pleural effusion; mild peribronchial thickening noted, suggestive of bronchitis/reactive airway disease.; mild urothelial thickening and enhancement of ureters was also noted. No pulmonary embolism. She was given 1 dose of Augmentin, 1 dose of Zosyn, 10mg Decadron, 10mg Toradol, 2mg morphine, and zofran. Allergies Allergy/AdvReac Type Severity Reaction Status Date / Time clindamycin Allergy Intermediate Rash Verified 02/16/21 17:35 prednisone AdvReac Intermediate SWELLING, Verified 02/16/21 17:35 LEGS NUMB Home Medications Medication Instructions Recorded Confirmed Type naproxen 500 mg tablet 500 mg PO BID PRN 12/10/20 02/16/21 History fluoxetine 20 mg capsule (Prozac) 20 mg PO DAILY 01/16/21 02/16/21 History gabapentin 300 mg capsule 300 mg PO TID PRN 02/02/21 02/16/21 History multivitamin 1 tab PO DAILY 02/02/21 02/16/21 History albuterol sulfate 90 mcg/actuation 1 inh INHALATION Q6H PRN #6.7 g 02/07/21 02/16/21 Rx aerosol inhaler diphenhydramine HCl 25 mg capsule 25 mg PO DIRECTED PRN 02/16/21 02/16/21 History (Benadryl) 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 Psoriatic arthritis Family History Grandmother (Paternal) Diabetes Grandfather (Paternal) Heart disease Social History Smoking Status: Never smoker Hx Alcohol Use: Yes Hx Substance Use: No Preferred Language: Maori Communication Ability: Effective 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 Beliefs That Will Affect Care: None marital status: Single Current Living Situation: Other Current Living Situation Comment: 3 roomates Other Information That Helps Us Care for You: No Feels Safe at Home: Yes Safety Concerns: Feels Safe At This Time Assistive Devices: None Review of Systems Review of Systems: All systems reviewed & are unremarkable except as noted in HPI & below Physical Exam Constitutional: WD/WN, vitals as above cooperative; no acute distress Eyes: + anicteric sclerae ENMT: external ear and nose normal, oropharynx normal Ears: no TM abnormality Throat: + tonsil abnormality (exudates present b/l) Neck: trachea midline Respiratory: normal respiratory effort, lungs clear to auscultation no cough Auscultation: no crackles, no rales, no rhonchi and no wheezes Cardiovascular: RRR, no murmur, no edema Heart Sounds: normal S1 and normal S2 Gastrointestinal (Abdomen): normal bowel sounds, soft, nontender, no hepatosplenomegaly Musculoskeletal: Head/Neck/Chest: normocephalic and head atraumatic Skin: no rashes, warm and dry Neurologic: moves all extremities + sensation intact to gross touch in b/l legs. Posterior tibial pulses +2 and symmetric Psychiatric: A+Ox3, euthymic affect Lymphatic: + cervical lymphadenopathy Results & Data Results & Data ([facility]) Vital Signs (Past 12 Hours) Vital Signs Temp Pulse Pulse Resp BP BP Pulse Ox 02/16/21 20:01 86 86 20 111/67 95 02/16/21 18:20 112 H 20 89/53 L 98 02/16/21 16:33 37.2 C 124 H 18 115/65 99 Supervising Physician Co-Signing Physician Notes Attending addendum: I have physically seen this patient, have supervised the medical residents activities, and agree with the H&P unless as otherwise noted. 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 She does note that her symptoms had been improving, until Augmentin dosing was completed 2 days ago, and since then her symptoms have begun to return Remaining orders and notations as noted Resident Activity Tracking Resident Involvement: Resident Care Provided Care Provided: Adult Hospital Medicine (1) Sepsis Sepsis acute organ dysfunction status: unspecified Sepsis type: sepsis due to unspecified organism Qualified Code(s): A41.9 - Sepsis, unspecified organism
[2021-02-16] MEDS ORDERED: ONDANSETRON INJ 2 MG/ML 2 ML VIAL IV PRN (22:08)
[2021-02-16] MEDS ORDERED: ALBUTEROL HFA 8 GM INHALER INH PRN (22:08)
[2021-02-16] MEDS ORDERED: POLYETHYLENE (MIRALAX) 17 GM PACK PO PRN (22:08)
[2021-02-16] MEDS ORDERED: GABAPENTIN 300 MG CAP PO PRN (22:08)
[2021-02-16] MEDS ORDERED: ACETAMINOPHEN 325 MG TAB PO PRN (22:08)
[2021-02-16 22:53] LABS: C Reactive Protein 8.72 mg/dl (0-0.29)
[2021-02-16] MEDS: AMPICILLIN/SULBACTAM SOD 3,000 MG in 0.9 % SODIUM CHLORIDE 100 ML IV SCH (23:30)
[2021-02-16 23:47] LABS: Lyme Ab IgG w/WB Rflx Negative (Negative); Lyme Ab IgM w/WB Rflx Negative (Negative)
[2021-02-17] MEDS: NSS + 20MEQ KCL 20 MEQ/1,000 ML BAG IV SCH ×2 (00:04→09:11)
[2021-02-17] MEDS: AMPICILLIN/SULBACTAM SOD 3,000 MG in 0.9 % SODIUM CHLORIDE 100 ML IV SCH ×4 (02:47→21:52)
[2021-02-17 04:05] LABS: Adenovirus PCR Not Detected (NotDetected); Bordetella parapertussis PCR Not Detected (NotDetected); Bordetella pertussis PCR Not Detected (NotDetected); Chlamydia pneumoniae PCR Not Detected (NotDetected); Coronavirus 229E PCR Not Detected (NotDetected); Coronavirus CoV-2 (COVID19)PCR Not Detected (NotDetected); Coronavirus HKU1 PCR Not Detected (NotDetected); Coronavirus NL63 PCR Not Detected (NotDetected); Coronavirus OC43PCR Not Detected (NotDetected); Human Metapneumovirus PCR Not Detected (NotDetected); Influenza A PCR Not Detected (NotDetected); Influenza B PCR Not Detected (NotDetected); Mycoplasma pneumoniae PCR Not Detected (NotDetected); Parainfluenza Virus 1 PCR Not Detected (NotDetected); Parainfluenza Virus 2 PCR Not Detected (NotDetected); Parainfluenza Virus 3 PCR Not Detected (NotDetected); Parainfluenza Virus 4 PCR Not Detected (NotDetected); Respiratory Syncytial VirusPCR Not Detected (NotDetected); Rhinovirus/Enterovirus PCR Not Detected (NotDetected)
[2021-02-17] MEDS ORDERED: SODIUM CHLORIDE 0.9% 1000ML 1,000 ML IV ONE (04:11)
[2021-02-17] MEDS ORDERED: ACETAMINOPHEN 1,000 MG/100 ML VIAL IV PRN (05:48)
[2021-02-17] MEDS ORDERED: IBUPROFEN 200 MG TAB PO PRN (05:50)
[2021-02-17 08:17] LABS: Hematocrit (blood only) 31.1 % (37-47); Hemoglobin 10.4 g/dL (12.0-16.0); Mean Corpuscular Hemoglobin 30.4 pg (25-34); Mean Corpuscular Hgb Conc 33.4 g/dL (32-36); Mean Corpuscular Volume 90.9 fL (80-100); Mean Platelet Volume 8.9 fL (7.4-10.4); Platelet Count 362 K/uL (130-400); RDW Coefficient of Variation 14.2 % (11.5-14.5); RDW Standard Deviation 47.5 fL (36.4-46.3); Red Blood Count 3.42 M/uL (4.2-5.4); White Blood Count 35.05 K/uL (4.8-10.8)
--- NOTE | 2021-02-17 08:39 | Hospitalist Progress Note ---
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 Sepsis: - SIRS Criteria met, patient septic - lactate not elevated, favorable prognosis - 30ml/Kg fluid bolus on admit -- continue mIVF w/ NSS + KCl - source uncertain: infectious vs. inflammatory; likely infectious with neutrophilic predominance of elevated WBC; exam seems consistent with bacterial pharyngitis - CTA of abdomen showing concern for urothelial thickening, however UA benign. Urine culture pending. - Chest CTA showing resolution of previous PNA and pleural effusion. COVID 19 neg. Respiratory viral panel negative. - Lyme Neg. - Monospot negative. Strep swab negative. CMV pending. - GC/Chlamydia pending (to rule out gonococcal pharyngitis) - no diarrhea or skin findings on exam - patient does have bilateral tonsillar exudates -- continue treatment with Unasyn for possible bacterial tonsillitis (anaerobic vs group C strep as origin?). Throat culture pending. - Blood cultures pending - elevated ESR and CRP could also suggest inflammatory source of sepsis. Given underlying autoimmune disease, could possibly be a post-infectious inflammatory response syndrome. Decadron given in ED - Trend CBC and CRP Leukocytosis: - WBC 31 on admission, 35.05 on recheck - neurophil predominance suggestive of bacterial origin, however negative procal suggests viral pathology - infectious work-up as above - peripheral smear with neutrophilic predominance and no abnormal cells - trend CBC GI bleed: - Patient reported blood on TP after BM this AM - She has had this before with recent colonoscopy in 10/10 without any findings per patient - Likely due to internal hemorrhoids vs anal fissure but less likely given no rectal pain - Monitor H/H Leg pain: - History of bilateral popliteal artery entrapment with corrective surgery in 2018 at [facility] - She mentions current bilateral pain that is up to an 8/10 from hips down -- feels similar to what she felt prior to her surgery -Mild swelling noted -Chest CTA without evidence of pulmonary embolus -Consider arterial Doppler of bilateral lower extremities for further evaluation -Additional Toradol dose ordered this morning with good response -PRN Toradol ordered Psoriatic arthritis: - history of - not currently on immunosuppressants -- was meant to start methotrexate but did not due to recent illness Iron deficiency anemia: - Hgb 11.2 - iron level low at 12 on 02/03 - continue ferrous sulfate supplement Hypokalemia: - K mildly low at 3.4 - NSS with KCl - repeat BMP in am DVT ppx: Lovenox FENGI: Regular, NSS w/ KCl Dispo: Med/tele Code: Full (2) Leukocytosis: (3) Psoriatic arthritis: (4) Iron deficiency anemia: (5) Hypokalemia: Admission and Anticipated Discharge Date Admission Date: February 16, 2021 Supervising Physician Co-Signing Physician Notes I personally examined the patient and verified all mendes points of history and exam, discussed case, and agree with decision making with Dr Forte. Feeling flushed, throat hurts, legs hurt. Had blood with bowel movement. And asking to quantify thatshe notes that she had stools it was not bloody but had blood on the toilet paper. She notes this is happened many times before, and she is actually had a colonoscopy as recently as October "where they could not find where the bleeding was coming from". Legs hurt diffusely, no focal area of pain. Able to move well. Throat is sore and swollen. Feels flushed. This is not really much different than yesterday. Vitals noted, in general she is fatigued but otherwise in no distress. HEENT normocephalic atraumatic mucous membranes are moist, she has tonsillar hypertrophy about 3+ with diffuse exudate may be right greater than left, throat and palate move evenly with no asymmetry or apparent masses, no "hot potato voice" she has left greater than right bilateral cervical adenopathy that is fairly large but freely mobile. Neck is supple. Cardio is regular without rubs murmurs or gallops, lungs clear to auscultation bilaterally no rales rhonchi or wheeze with good effort. Abdomen is soft nondistended nontender no masses organomegaly. Extremities show no cyanosis clubbing or edema, she has good pulses, she has no popliteal tenderness and I can feel a popliteal pulse, she has musculoskeletal postop changes in her proximal calves bilaterally. No focal neuro deficits. Pharyngitis with sepsisappears to be bacterial, both based on her clinical presentation at the bedside, but more so based on her lab findings. Continue Unasyn pending cultures. Anticipate improvement. Today's slight increase in white count may be nonspecific and the treatment was just started yesterday, or may even be a reactive to the steroids she was given in the ER. Given that her airway and oropharynx are patentno further steroids appear to be needed. If any true worsening or failure to improve, can pursue potential for peritonsillar abscess in more depth (CT and/or ENT evaluation)but I doubt this will be necessary. Continue Unasyn, serial exams, follow cultures. Recurrent infectionsshe notes since the started she has had a urinary tract infection, pneumonia, and our current pharyngitisshe was admitted for both the pneumonia and the pharyngitis. She wonders if this could represent some type of immune deficiency. She does have psoriatic arthritis, and certainly that could suppress her immune system some, further having infections reducing her "physiologic reserve" to fight off the next infection in short order could explain all of this. At the same time given that she does have an autoimmune condition, immune deficiencies do sometimes go [id number] levels were sent at admission, but given phenomenon such as bystander immunity, I am not sure how reliable they would be whenever she is currently septic from the infectionI would suggest outpatient follow-up with immunology when she is more at baseline. Bloody stoolson clarification of her history, filling out bloody stools this is blood on the toilet paper. She has had a recent colonoscopy (only about 3 months ago) without any striking findings)given that her CT scan shows fecal retention, given her history being quite consistent with something like internal hemorrhoidsI strongly suspect internal hemorrhoids to be the culprit, and because she is young, once she was no longer constipated (i.e. after a bowel prep) the hemorrhoids likely would have deflated. Something along the lines of a rectal fissure would also be a differentialbut I would suspect this would have been seen visually at scope, and also I would suspect it would cause her more pain and discomfort. Either way follow her hemodynamics and hemoglobin to be safe. Given that it would not oil change technician, I deferred rectal exam at this time, again because it would not really be changing management at all given that she is already had a recent colonoscopy and a very benign presentation. otherwise as above Subjective Overnight patient required morphine and Toradol for severe leg pain. She mentions this morning that the leg pain was well controlled with both the Toradol and morphine but now it is back and she rates it at 8/10. She says that this feels very similar to how it felt before her surgery in 2018. She says that she has noticed some mild swelling of her legs as well. She does report continued sore throat, says she has had a cough ever since the recent pneumonia. Otherwise denies fever, chills, nausea, vomiting, abdominal pain, urinary symptoms, shortness of breath, leg weakness, leg numbness, neuro deficits. Review of Systems Review of Systems: Per subjective Physical Exam Physical Exam: GENERAL: A&Ox3. NAD. HEENT: PERRL, EOMI. Moist mucous membranes. NECK: No JVD. No lymphadenopathy. CHEST/LUNGS: CTAB A/P. No crackles, wheezes, rales, rhonchi. HEART: RRR. No m/g/r. No carotid bruits. ABDOMEN: NT/ND, soft. BS+ x4 EXTREMITIES: No cyanosis, no clubbing. Bilateral trace edema in lower extremities. Homans' sign negative bilaterally. Pulses 2+ in bilateral lower extremities. SKIN: Warm and dry. No rashes or lesions. PSYCHIATRIC: Euthymic affect, no SI, no pressured speech, no hallucinations NEUROLOGIC: The patient has 5/5 strength x4 extremities. Sensation intact. CN II-XII grossly intact. RECTAL: Deferred due to likely diagnosis established via history and limited utility of a possibly uncomfortable exam for the patient Results & Data Results & Data ([facility]) Vital Signs (Past 12 Hours) Vital Signs Temp Pulse Pulse Resp BP BP BP 02/17/21 07:50 36.5 C 99 H 16 97/60 L 02/17/21 03:31 36.4 C L 62 16 89/47 L 02/16/21 22:18 86 02/16/21 22:17 36.4 C L 85 18 102/69 02/16/21 22:08 36.4 C L 85 18 102/69 02/16/21 21:46 37.1 C 64 18 107/67 02/16/21 21:00 85 19 108/61 Pulse Ox 02/17/21 07:50 99 02/17/21 03:31 97 02/16/21 22:18 02/16/21 22:17 100 02/16/21 22:08 100 02/16/21 21:46 99 02/16/21 21:00 99 Resident Activity Tracking Resident Involvement: Resident Care Provided Care Provided: Adult Hospital Medicine (1) Sepsis Sepsis acute organ dysfunction status: unspecified Sepsis type: sepsis due to unspecified organism Qualified Code(s): A41.9 - Sepsis, unspecified organism
[2021-02-17 08:48] LABS: Basophils # (auto) 0.01 K/uL (0-0.2); Immature Granulocytes # (auto) 0.13 K/uL (0.00-0.02); Immature Granulocytes % (auto) 0.4 %; Lymphocytes # (auto) 0.96 K/uL (1.2-3.4); Lymphocytes % (auto) 2.7 %; Monocytes # (auto) 0.83 K/uL (0.11-0.59); Monocytes % (auto) 2.4 %; Neutrophils # (auto) 33.12 K/uL (1.4-6.5); Neutrophils % (auto) 94.5 %
[2021-02-17 09:06] LABS: BUN Creatinine Ratio 8.5 (10-20); Blood Urea Nitrogen 4 mg/dl (7-18); Calcium 8.8 mg/dl (8.5-10.1); Carbon Dioxide 21 mmol/L (21-32); Chloride 111 mmol/L (98-107); Creatinine Clr Calc Pharmacy 172.9 ml/min; Est GFR (African American) > 150.0 ml/min; Est GFR (Non-African American) 143.2 ml/min; Glucose 129 mg/dl (70-99); Sodium 139 mmol/L (136-145)
[2021-02-17] MEDS ORDERED: KETOROLAC TROMETHAMINE 15 MG/ML VIAL IV ONE (09:06)
[2021-02-17] MEDS: FERROUS SULFATE 325 MG TAB PO SCH (09:10)
[2021-02-17] MEDS: ENOXAPARIN INJ 40 MG/0.4 ML SYR SQ SCH (09:10)
[2021-02-17] MEDS: FLUoxetine HCL 20 MG CAP PO SCH (09:10)
--- NOTE | 2021-02-17 17:09 | Billing Data ---
Date of Service February 17, 2021 Coding Level of Care Code 76066 Subseq Hosp Care Lvl 3
--- NOTE | 2021-02-17 18:08 | Billing Data ---
Date of Service February 17, 2021 Coding Level of Care Code 92938 Prolonged Care (int'l)
[2021-02-17] MEDS: KETOROLAC TROMETHAMINE 15 MG/ML VIAL IV PRN (21:50)
--- NOTE | 2021-02-17 22:10 | Billing Data ---
Date of Service February 17, 2021 Coding Level of Care Code 67124 Initial Inpt Care Lvl 3
[2021-02-17] MEDS ORDERED: MoRPHine SULFATE 2 MG/ML CARP IV STA (22:47)
[2021-02-17] MEDS: MELATONIN 3 MG TAB PO PRN (23:15)
[2021-02-17] MEDS ORDERED: diphenhydrAMINE Capsule 25 MG CAP PO ONE (23:23)
[2021-02-18] MEDS: AMPICILLIN/SULBACTAM SOD 3,000 MG in 0.9 % SODIUM CHLORIDE 100 ML IV SCH ×3 (02:52→15:36)
--- NOTE | 2021-02-18 08:22 | Hospitalist Progress Note ---
Date of Service February 18, 2021 Assessment & Plan Admission and Anticipated Discharge Date Admission Date: February 16, 2021 Results & Data Results & Data ([facility]) Vital Signs (Past 12 Hours) Vital Signs Temp Pulse Pulse Resp BP BP Pulse Ox 02/18/21 07:44 37.1 C 74 16 94/58 L 97 02/18/21 02:33 36.7 C 88 16 98/58 L 96 02/17/21 23:54 95 H 02/17/21 22:47 36.9 C 87 16 105/63 99
[2021-02-18 08:33] LABS: Basophils # (auto) 0.03 K/uL (0-0.2); Basophils % (auto) 0.2 %; Eosinophils # (auto) 0.05 K/uL (0-0.5); Eosinophils % (auto) 0.4 %; Hematocrit (blood only) 28.5 % (37-47); Hemoglobin 9.3 g/dL (12.0-16.0); Immature Granulocytes # (auto) 0.04 K/uL (0.00-0.02); Immature Granulocytes % (auto) 0.3 %; Lymphocytes # (auto) 3.21 K/uL (1.2-3.4); Lymphocytes % (auto) 23.4 %; Mean Corpuscular Hemoglobin 30.4 pg (25-34); Mean Corpuscular Hgb Conc 32.6 g/dL (32-36); Mean Corpuscular Volume 93.1 fL (80-100); Monocytes # (auto) 0.61 K/uL (0.11-0.59); Monocytes % (auto) 4.4 %; Neutrophils % (auto) 71.3 %; Platelet Count 322 K/uL (130-400); RDW Coefficient of Variation 14.4 % (11.5-14.5); RDW Standard Deviation 49.1 fL (36.4-46.3); Red Blood Count 3.06 M/uL (4.2-5.4); White Blood Count 13.74 K/uL (4.8-10.8)
[2021-02-18 08:59] LABS: C Reactive Protein 3.4 mg/dl (0-0.29); Calcium 8.7 mg/dl (8.5-10.1); Creatinine Clr Calc Pharmacy 113.4 ml/min; Est GFR (African American) 148.4 ml/min; Est GFR (Non-African American) 128.1 ml/min; Potassium 3.4 mmol/L (3.5-5.1)
[2021-02-18] MEDS: ENOXAPARIN INJ 40 MG/0.4 ML SYR SQ SCH (10:16)
[2021-02-18] MEDS: FLUoxetine HCL 20 MG CAP PO SCH (10:17)
[2021-02-18] MEDS: FERROUS SULFATE 325 MG TAB PO SCH (10:17)
[2021-02-18] MEDS: KETOROLAC TROMETHAMINE 15 MG/ML VIAL IV PRN (12:09)
--- NOTE | 2021-02-18 12:23 | Discharge Summary ---
Date of Service February 18, 2021 Admission HPI Per Admitting Provider Azeb is a 20 yo female with a PMHx of psoriatic arthritis who presented for evaluation of sore throat. Of note, she was hospitalized at [facility] from 02/02/21 to 02/08/21 for a urinary tract infection, at which time she was also found to have a viral pneumonia and pharyngitis (serology positive for enterovirus). Her urine culture from previous admission grew out hart-sensitive Klebsiella and she was sent out with a script of Augmentin. She completed the Augmentin course two days ago. She says her urinary symptoms have totally resolved, as had her upper respiratory symptoms. However, last night, she devleoped a bad sore throat and bilateral leg pain. 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 Azeb denies any fevers, nausea/vomiting or diarrhea. She is sexually active with her boyfriend - she denies any vaginal discharge or pelvic pain. She denies any known sick contacts. She was vaccinated against COVID 19. She is not currently on any immunosuppressants for her psoriatic arthritis - she is supposed to be starting methotrexate, but she had to hold off because she became ill earlier this month. 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 She is from [place] but her family recently moved to [place]. In the ED, she was afebrile with a HR of 112 and a BP of 89/53. Her oxygen saturation and RR were normal. Her WBC was markedly elevated to 31 with neutrophil predom. Procal not elevated. Lactate not elevated. Strep neg. Monospot neg. COVID 19 neg. UA normal. Nasal MRSA swab negative. Urine and blood cultures pending. ESR elevated to 39, CRP to 8.72. K low at 3.4; CMP otherwise WNL. Hgb 11.2. CTA of chest and abdomen showed resolution of her previous pneumonia and associated pleural effusion; mild peribronchial thickening noted, suggestive of bronchitis/reactive airway disease.; mild urothelial thickening and enhancement of ureters was also noted. No pulmonary embolism. She was given 1 dose of Augmentin, 1 dose of Zosyn, 10mg Decadron, 10mg Toradol, 2mg morphine, and zofran. Principal Diagnosis Bacterial pharyngitis Discharge Exam GENERAL: A&Ox3. NAD. HEENT: PERRL, EOMI. Moist mucous membranes. Erythema in throat that has improved, tonsillar exudate improved as well. CHEST/LUNGS: CTAB A/P. No crackles, wheezes, rales, rhonchi. HEART: RRR. No m/g/r. No carotid bruits. ABDOMEN: NT/ND, soft. BS+ x4 EXTREMITIES: No cyanosis, no clubbing, no edema. Homans' sign negative bilaterally. Pulses 2+ in bilateral lower extremities. SKIN: Warm and dry. No rashes or lesions. PSYCHIATRIC: Euthymic affect, no SI, no pressured speech, no hallucinations NEUROLOGIC: The patient has 5/5 strength x4 extremities. Sensation intact. CN II-XII grossly intact. 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 Sepsis: - SIRS Criteria met, patient septic - lactate not elevated, favorable prognosis - Given IVF for rehydration - source uncertain: infectious vs. inflammatory; likely infectious with neutrophilic predominance of elevated WBC; exam seems consistent with bacterial pharyngitis - CTA of abdomen showing concern for urothelial thickening, however UA benign. Urine culture with lactobacillus -- no treatment warranted for this. - Chest CTA showing resolution of previous PNA and pleural effusion. COVID 19 neg. Respiratory viral panel negative. - Lyme Neg. - Monospot negative. Strep swab negative. CMV pending. - GC/Chlamydia negative - no diarrhea or skin findings on exam - patient does have bilateral tonsillar exudates -- ?anaerobic vs group C strep as origin. Throat culture pending. - Blood cultures NGTD at 24h on DC - elevated ESR and CRP could also suggest inflammatory source of sepsis. Given underlying autoimmune disease, could possibly be a post-infectious inflammatory response syndrome. Decadron given in ED - WBC and CRP downtrending on day of DC - Treated with Unasyn IV in hospital -- transition to Augmentin orally at [place] for 14 total days of treatment Leukocytosis: - WBC 31 on admission, 35.05 on recheck (did receive dose of Decadron in ED) -- downtrended to 13.74 on DC - neurophil predominance suggestive of bacterial origin, however did have negative procal - infectious work-up as above - peripheral smear with neutrophilic predominance and no abnormal cells GI bleed: - Patient reported blood on TP after BM on 02/17, no further episodes - She has had this before with recent colonoscopy in 10/10 without any findings per patient - Likely due to internal hemorrhoids vs anal fissure but less likely given no rectal pain - H/H stable at DC Leg pain: - History of bilateral popliteal artery entrapment with corrective surgery in 2018 at [facility] - She mentions current bilateral pain that is up to an 8/10 from hips down -- feels similar to what she felt prior to her surgery - Mild swelling noted - Chest CTA without evidence of pulmonary embolus - Consider arterial Doppler of bilateral lower extremities for further evaluation - Additional Toradol dose ordered this morning with good response - PRN Toradol ordered Psoriatic arthritis: - history of - not currently on immunosuppressants -- was meant to start methotrexate but did not due to recent illness Iron deficiency anemia: - Hgb 11.2 - iron level low at 12 on 02/03 - continue ferrous sulfate supplement Hypokalemia: - K mildly low at 3.4 - NSS with KCl while admitted Dispo: Home, self-care (2) Leukocytosis: (3) Psoriatic arthritis: (4) Iron deficiency anemia: (5) Hypokalemia: Total Time Total Time Spent Total Time Spent (In Minutes): see attending attestation Discharge Plan Discharge Items Patient Disposition: Home - Self-Care Reason For Visit: INFECTION Discharge Diagnosis: Bacterial pharyngitis Activity: Per Instructions section Non-emergency contact: Primary Care Provider Call non-emergency contact if: your symptoms worsen and your temperature is above 101 Follow-up/Referrals: Doyel Carrion MD [Resident] - Diet: Regular Addtl Attending Provider Instructions: You were admitted to [facility] due to worsening sore throat. You were found to have a high white blood count and significant throat redness/inflammation. You were started on IV antibiotics and several studies were done to rule out different causes. You had a completely negative viral panel (including COVID), strep swab, Lyme serology, mononucleosis testing. At time of discharge several studies are pending including throat culture and blood cultures. However, since your white blood count has trended down significantly, you are stable from a vitals standpoint, and your symptoms are slowly improving, we believe you are safe to continue treatment with oral antibiotics at home. We will prescribe Augmentin, which is basically an oral version of the same antibiotic that you have been receiving in your IV site while hospitalized. You will take this to complete a 14-day course. We recommend that you follow up in the outpatient setting with a primary care provider within the next week. You have been scheduled at the [facility] with Dr. Forte on February 23 at 2:20PM. If you cannot make this appointment, please reach out to our office to have it rescheduled. Due to your new-onset urinary symptoms, a urine culture was ordered and is pending at the time of your discharge. We will monitor these results and discuss them in the outpatient setting. If you develop fever, chills, or worsening symptoms at home, please return for further evaluation. Pending Studies at Discharge: Yes (Throat culture) Stand-Alone Forms: My [facility], Work/School Release, Smoking Cessation Medications and DC Order Prescriptions: New amoxicillin-pot clavulanate [Augmentin] 875-125 mg Tablet 1 tab PO BIDM 11 Days Qty: 22 RF: 0 Continued naproxen 500 mg Tablet 500 mg PO BID PRN (Reason: Headache) RF: 0 fluoxetine [Prozac] 20 mg Capsule 20 mg PO DAILY RF: 0 multivitamin Tablet 1 tab PO DAILY RF: 0 gabapentin 300 mg capsule 300 mg PO TID PRN (Reason: Pain) RF: 0 albuterol sulfate 90 mcg/actuation HFA aerosol inhaler 1 inh inhalation Q6H PRN (Reason: shortness of breath or wheezing) Qty: 6.7 RF: 0 diphenhydramine HCl [Benadryl] 25 mg Capsule 25 mg PO DIRECTED PRN (Reason: Allergic Reaction) RF: 0 Discharge Orders: Discharge Order (Routine); Ordered 02/19/21 Ordered By: Doyle Carrion Admission Data Admit Date/Time: 02/16/21 20:34 Attending Provider: Deangelo Carrillo Admit Provider: Adela Chavez Primary Care Provider: [facility] Other Providers: Alejo Tamez Other Interventions: Discharge Summary Assessment (RN) Last Done: 02/19/21 10:08 Supervising Physician Co-Signing Physician Notes I personally examined the patient and verified all mendes points of history and exam, discussed case, and agree with decision making with Dr Forte. Feeling better overall, feeling up to going home. Very appreciative of care. Vitals noted, in general whenever I saw her awake and alert pleasant no distress. HEENT normocephalic atraumatic mucous membranes moist. Speech is clear and fluent, no hot potato voice, no distress Breathing unlabored no accessory muscle use good effort. Skin shows no rashes no pallor or icterus. Neuro with no focal deficits. Pharyngitis with sepsisappears to be bacterial based on her clinical presentationimproving with antibiotics, stable for home on Augmentin Recurrent infectionsUTI, pneumonia, now bacterial pharyngitis all since the beginning of the semester. Antibody levels are normal, but in the context of her current acute infection I wonder if it is a false elevation from bystander immunity. Would have outpatient immunology work-up. May also simply relates to having psoriatic arthritis, or may just simply be a bad run of infections due to multiple exposures returning to campus for the semester. No acute management necessary in this regard. Bloody stoolssee prior notesmost likely hemorrhoidal. Hemodynamically stable. Overall stable. stable for home Resident Activity Tracking Resident Involvement: Resident Care Provided Care Provided: Adult Hospital Medicine
[2021-02-18 13:32] LABS: Chlamydia Trach RNA NOT DETECTED (NOT DETECTED); GC (Neis gonorrhoeae) RNA NOT DETECTED (NOT DETECTED)
[2021-02-18] MEDS ORDERED: IBUPROFEN 600 MG TAB PO PRN (17:03)
[2021-02-18] MEDS: AMOXICILLIN/CLAVULANATE 875 MG TAB PO SCH (17:09)
--- NOTE | 2021-02-18 18:38 | Hospitalist Progress Note ---
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 Sepsis: - SIRS Criteria met, patient septic - lactate not elevated, favorable prognosis - Given IVF for rehydration - source uncertain: infectious vs. inflammatory; likely infectious with neutrophilic predominance of elevated WBC; exam seems consistent with bacterial pharyngitis - CTA of abdomen showing concern for urothelial thickening, however UA benign. Urine culture with lactobacillus -- no treatment warranted for this. - Chest CTA showing resolution of previous PNA and pleural effusion. COVID 19 neg. Respiratory viral panel negative. - Lyme Neg. - Monospot negative. Strep swab negative. CMV pending. - GC/Chlamydia negative - no diarrhea or skin findings on exam - patient does have bilateral tonsillar exudates -- ?anaerobic vs group C strep as origin. Throat culture pending. - Blood cultures NGTD at 24h on DC - elevated ESR and CRP could also suggest inflammatory source of sepsis. Given underlying autoimmune disease, could possibly be a post-infectious inflammatory response syndrome. Decadron given in ED - WBC and CRP downtrending on day of DC - Treated with Unasyn IV in hospital -- transition to Augmentin orally for 14 total days of treatment - IN AM, was amenable to being discharged with oral antibiotics to finish out recovery at home with close outpatient follow up -- however, in PM feeling new symptoms as mentioned in subjective - Decision made to keep patient overnight for further monitoring Leukocytosis: - WBC 31 on admission, 35.05 on recheck (did receive dose of Decadron in ED) -- downtrended to 13.74 on DC - neurophil predominance suggestive of bacterial origin, however did have negative procal - infectious work-up as above - peripheral smear with neutrophilic predominance and no abnormal cells Dysuria/flank pain: - New onset 02/18 - Admission culture growing Lactobacillus, which points to likely vaginal eleazar contamination - Repeat urine culture ordered - Will continue abx as above and monitor overnight GI bleed: - Patient reported blood on TP after BM on 02/17, no further episodes - She has had this before with recent colonoscopy in 10/10 without any findings per patient - Likely due to internal hemorrhoids vs anal fissure but less likely given no rectal pain - H/H stable at DC Leg pain: - History of bilateral popliteal artery entrapment with corrective surgery in 2018 at [facility] - She mentions current bilateral pain that is up to an 8/10 from hips down -- feels similar to what she felt prior to her surgery - Mild swelling noted - Chest CTA without evidence of pulmonary embolus - Consider arterial Doppler of bilateral lower extremities for further evaluation - Additional Toradol dose ordered with good response - PRN Toradol ordered Psoriatic arthritis: - history of - not currently on immunosuppressants -- was meant to start methotrexate but did not due to recent illness Iron deficiency anemia: - Hgb 11.2 - iron level low at 12 on 02/03 - continue ferrous sulfate supplement Hypokalemia: - K mildly low at 3.4 - NSS with KCl while admitted DVT ppx: No chemoppx in young and mobile patient Dispo: Medsurg Diet: Vegan CODE: FULL (2) Leukocytosis: (3) Psoriatic arthritis: (4) Iron deficiency anemia: (5) Hypokalemia: Admission and Anticipated Discharge Date Admission Date: February 16, 2021 Supervising Physician Co-Signing Physician Notes I personally examined the patient and verified all mendes points of history and exam, discussed case, and agree with decision making with Dr Forte. Generally feeling a bit better. Throat still sore but a little better. Overall improved. Whenever I saw her we had extensive discussions on transition to p.o. antibiotics and outpatient management, but as the day progressed, she developed a headache and some urinary symptoms and felt nervous about going homeDr. Reanna saw her in follow-up for this. Vitals noted, in general whenever I saw her awake and alert pleasant no distress. HEENT normocephalic atraumatic mucous membranes moist. Oropharynx still with tonsillar hypertrophy still technically both about 3+, right may be slightly larger than the left at this point, still with some exudate but less than yesterday overall less erythematous but still erythematous somewhat. Breathing unlabored no accessory muscle use good effort. Skin shows no rashes no pallor or icterus. Neuro with no focal deficits. Pharyngitis with sepsisappears to be bacterial based on her clinical presentationimproving with antibiotics, white count plummeted over the last 24 hours. In this respect appears safe for home with Augmentin, with her other problems, continue inpatient management Recurrent infectionsUTI, pneumonia, now bacterial pharyngitis all since the beginning of the semester. Antibody levels are normal, but in the context of her current acute infection I wonder if it is a false elevation from bystander immunity. Would have outpatient immunology work-up. May also simply relates to having psoriatic arthritis, or may just simply be a bad run of infections due to multiple exposures returning to campus for the semester. No acute management necessary in this regard. Bloody stoolssee yesterday's notesmost likely hemorrhoidal. Hemodynamically stable. Overall stable. Headache and dysuriaper Dr. Forte. We discussed its very likely a tension headache, and discussed sending a urine culture given that she has dysuria already on antibiotics, although I do wonder if the dysuria is simply due to medications causing a little bit of urinary irritation, or some other noncystitis reason. Follow symptoms, continue current antibiotics, chlamydia serum testing is pending for completeness. Subjective Patient seen in AM, reported feeling overall better but still having some leg discomfort, 7/10 at worst. Despite this was amenable for home. No fever, chills, naiusea, vomiting, diarrhea, bloody stool, SOB, CP, palp, urinary symptoms. In afternoon, patient complaining of MURRAY, nausea, dysuria, and flank pain, which had not been present prior. MURRAY was not responsive to Tylenol or ibuprofen. Nausea responded to Zofran. At this point patient more anxious about returning home as she still felt sick. Vitals stable throughout. Review of Systems Review of Systems: per subjective Physical Exam Physical Exam: GENERAL: A&Ox3. NAD. HEENT: PERRL, EOMI. Moist mucous membranes. Erythema in throat that has improved, tonsillar exudate improved as well. CHEST/LUNGS: CTAB A/P. No crackles, wheezes, rales, rhonchi. HEART: RRR. No m/g/r. No carotid bruits. ABDOMEN: NT/ND, soft. BS+ x4 EXTREMITIES: No cyanosis, no clubbing, no edema. Homans' sign negative bilaterally. Pulses 2+ in bilateral lower extremities. SKIN: Warm and dry. No rashes or lesions. PSYCHIATRIC: Euthymic affect, no SI, no pressured speech, no hallucinations NEUROLOGIC: The patient has 5/5 strength x4 extremities. Sensation intact. CN II-XII grossly intact. Results & Data Results & Data ([facility]) Vital Signs (Past 12 Hours) Vital Signs Temp Pulse Resp BP Pulse Ox 02/18/21 15:24 36.4 C L 75 20 110/71 100 02/18/21 14:55 36.7 C 82 16 96/61 L 98 02/18/21 12:06 36.5 C 71 18 118/73 99 02/18/21 07:44 37.1 C 74 16 94/58 L 97 Resident Activity Tracking Resident Involvement: Resident Care Provided Care Provided: Adult Hospital Medicine (1) Sepsis Sepsis acute organ dysfunction status: unspecified Sepsis type: sepsis due to unspecified organism Qualified Code(s): A41.9 - Sepsis, unspecified organism
--- NOTE | 2021-02-18 18:56 | Billing Data ---
Date of Service February 18, 2021 Coding Level of Care Code 30240 Subseq Hosp Care Lvl 3
[2021-02-18] MEDS: FAMOTIDINE 20 MG TAB PO SCH (20:08)
[2021-02-18] MEDS: MELATONIN 3 MG TAB PO PRN (21:48)
[2021-02-19 07:05] LABS: Creatinine Clr Calc Pharmacy 149.7 ml/min; Est GFR (African American) > 150.0 ml/min; Est GFR (Non-African American) 140.3 ml/min
[2021-02-19 07:48] LABS: Hematocrit (blood only) 28.8 % (37-47); Hemoglobin 9.3 g/dL (12.0-16.0); Mean Corpuscular Hgb Conc 32.3 g/dL (32-36); Mean Corpuscular Volume 92.9 fL (80-100); Platelet Count 340 K/uL (130-400); RDW Coefficient of Variation 14.1 % (11.5-14.5); RDW Standard Deviation 48.1 fL (36.4-46.3); White Blood Count 9.11 K/uL (4.8-10.8)
[2021-02-19 08:05] LABS: Blood Urea Nitrogen 7 mg/dl (7-18); Calcium 8.5 mg/dl (8.5-10.1); Carbon Dioxide 25 mmol/L (21-32); Chloride 109 mmol/L (98-107); Creatinine Clr Calc Pharmacy 170.1 ml/min; Est GFR (African American) > 150.0 ml/min; Est GFR (Non-African American) 146.3 ml/min; Glucose 88 mg/dl (70-99); Potassium 3.6 mmol/L (3.5-5.1); Sodium 139 mmol/L (136-145)
[2021-02-19] MEDS: AMOXICILLIN/CLAVULANATE 875 MG TAB PO SCH (10:03)
[2021-02-19] MEDS: FAMOTIDINE 20 MG TAB PO SCH (10:03)
[2021-02-19] MEDS: ENOXAPARIN INJ 40 MG/0.4 ML SYR SQ SCH (10:04)
[2021-02-19] MEDS: FERROUS SULFATE 325 MG TAB PO SCH (10:39)
[2021-02-19] MEDS: FLUoxetine HCL 20 MG CAP PO SCH (10:39)
--- NOTE | 2021-02-19 15:52 | Billing Data ---
Date of Service February 19, 2021 Coding Level of Care Code D/C DAY MANAGEMENT <30 MINS
[2021-02-21 10:32] LABS: CMV IgG Antibody <0.60 U/mL; CMV IgM Antibody <30.00 AU/mL; Immunoglobulin D 121 mg/L (<179); Immunoglobulin IgE 47 kU/L (<OR=114)
== END 2021-02-19 11:14 | disposition home or self-care (01) | DRG 872 ==
LOC: ED 16:30 → 2W 20:34 → SUATTDRO 20:34 → 2W 21:46 → 3E 02-18 12:07

== ENCOUNTER 2022-02-13 09:28 | Observation (INO) ==
[2022-02-13] MEDS ORDERED: MoRPHine SULFATE 4 MG/ML 1 ML CARP\\VIAL IV STA ×2 (10:06→12:40)
[2022-02-13] MEDS ORDERED: ONDANSETRON INJ 2 MG/ML 2 ML VIAL IV STA ×2 (10:06→12:40)
[2022-02-13] MEDS ORDERED: SODIUM CHLORIDE 0.9% 1000ML 1,000 ML IV SCH ×3 (10:06→15:15)
--- NOTE | 2022-02-13 10:09 | Emergency Department Note ---
History of Present Illness General Chief complaint: Abdominal Pain Stated complaint: L SIDE ABD PAIN, WEAK, VOMITING Time Seen by Provider: 02/13/22 09:42 History of Present Illness Maximum Pain Intensity: 7 Patient is a 21-year-old female with past medical history significant for anxiety, fibromyalgia, psoriatic arthritis on methotrexate, who presents emergency department for evaluation of left lower quadrant abdominal pain with associated nausea, vomiting and diarrhea. Her symptoms started about 3 days ago. 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 She reports that she had developed the discomfort, and was nauseous and anorexic. She is using Zofran, gabapentin and Aleve. She states the pain is in the left lower quadrant of the abdomen, radiating toward the left mid abdomen and up into her left axilla. She reports diarrhea that is dark and loose but nonbloody and nonmelanotic. She has had roughly 5 episodes of vomiting over the last couple of days. She is currently on a Medrol Dosepak from her beef specialist, she recently got a pneumonia vaccine and they thought that this caused an exacerbation of her psoriatic arthritis. She finished a Z-Alexis 2 days ago for a productive cough. She has not checked her temperature with a thermometer. No urinary symptoms. She is currently menstruating. She is sexually active. No concern for or STIs. No cough, wheezing, chest pain or shortness of breath. She reports a history of sepsis from a UTI in the past. Home Medications Medication Instructions Recorded Confirmed Type naproxen 500 mg tablet 500 mg PO BID PRN Headache 12/10/20 02/13/22 History gabapentin 300 mg capsule 300 mg PO TID PRN Pain 02/02/21 02/13/22 History diphenhydramine HCl 25 mg capsule 25 mg PO DIRECTED PRN Allergic 02/16/21 02/09/22 History (Benadryl) Reaction epinephrine 0.3 mg/0.3 mL 0.3 mg (0.3 mL) IM Q4H PRN 10/18/21 02/09/22 Rx injection, auto-injector (EpiPen) anaphylaxis #1 ea prenat.vits,vincent,[id number]-euvw-xiaqi 1 tab PO DAILY #30 tabs 10/18/21 02/09/22 Rx sertraline 50 mg tablet (Zoloft) 50 mg PO DAILY #30 tabs 10/18/21 02/13/22 Rx methenamine hippurate 1 gram tablet 1 g PO Q12H #60 tabs 01/08/22 02/09/22 Rx ondansetron 4 mg disintegrating 4 mg PO Q6H PRN nausea and 02/13/22 Rx tablet vomiting #20 tabs Allergies Allergy/AdvReac Type Severity Reaction Status Date / Time clindamycin Allergy Intermediate Rash Verified 02/09/22 08:28 prednisone AdvReac Intermediate SWELLING, Verified 02/09/22 08:28 LEGS NUMB Past Med/Surg History Medical History Anxiety 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 Fibromyalgia 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 Psoriatic arthritis Sepsis Surgical History History of placement of ear tubes History of sinus surgery History of surgery Surgery for popliteal artery entrapment syndrome surgery History of wisdom tooth extraction Family History Grandmother (Paternal) Diabetes Grandfather (Paternal) Heart disease Brother Asthma Other Allergic rhinitis Social History Smoking Status: Never smoker Hx Alcohol Use: Yes Hx Substance Use: No Preferred Language: German Communication Ability: Effective Resin Painter Required: No Beliefs That Will Affect Care: None marital status: Single Current Living Situation: Other Current Living Situation Comment: 3 roomates Feels Safe at Home: Yes Assistive Devices: None Review of Systems A total of 10 systems reviewed and were otherwise negative Physical Exam Vital Signs Vital Signs - 24 hr 02/13/22 09:39 02/13/22 11:29 02/13/22 14:00 Temperature 36.9 C Temperature Source Temporal Artery Scan Pulse Rate 77 Pulse Rate [Right Finger] 54 L 64 Pulse Rhythm [Right Finger] Respiratory Rate 16 16 16 Respiratory Effort / Characteristics Non-Labored Spontaneous Respiratory Depth Normal Respiratory Pattern Blood Pressure 117/66 Blood Pressure [Right Arm] 99/60 L 81/68 L Blood Pressure Mean 83 Blood Pressure Mean [Right Arm] 73 72 Blood Pressure Position Sitting Pulse Oximetry 97 98 94 Oxygen Delivery Method Room Air Room Air Sepsis Recent Fever Within 48 Hours No Sepsis New/Unexplained Change in Mental Status N/A Sepsis Action Taken by Nursing No Action Required 02/13/22 15:13 02/13/22 15:35 Temperature 37.1 C Temperature Source Oral Pulse Rate 70 Pulse Rate [Right Finger] 65 Pulse Rhythm [Right Finger] Regular Respiratory Rate 18 18 Respiratory Effort / Characteristics Non-Labored Respiratory Depth Normal Respiratory Pattern Regular Blood Pressure 100/61 Blood Pressure [Right Arm] 114/68 Blood Pressure Mean Blood Pressure Mean [Right Arm] 83 Blood Pressure Position Pulse Oximetry 99 Oxygen Delivery Method Room Air Room Air Sepsis Recent Fever Within 48 Hours Sepsis New/Unexplained Change in Mental Status Sepsis Action Taken by Nursing CONSTITUTIONAL: Patient is a well-appearing 21 year-old female laying on the gurney. EYES: Pupils equal, round, reactive to light and accommodation. EOMs intact without nystagmus. Sclera are anicteric. ENT: Tympanic membranes intact, with normal landmarks. External canals are clear. Oral and nasopharynx are clear. Mucous membranes are moist, no lesions, tongue and gums appear normal. CARDIOVASCULAR: Regular rate and rhythm. Peripheral pulses easily palpable. RESPIRATORY: Breath sounds equal and clear to auscultation. ABDOMEN: Bowel sounds are present. The abdomen is soft, scaphoid, there is a very faint small area of ecchymosis in the left lower quadrant, roughly 2 cm in diameter. The abdomen is nontender to percussion and minimally tender to palpation in the left lower quadrant. No guarding. No rebound. INTEGUMENTARY: No lesions or rash, normal skin turgor. LYMPH: No lymphadenopathy. Course Course The patient was seen and assessed as above. Old records are reviewed. She presents the emergency department for evaluation of left-sided abdominal pain with associated nausea, vomiting and diarrhea. IV lock was initiated and laboratory studies were collected. CBC with differential, CMP, serum hCG, lipase and urinalysis were ordered. She was hydrated normal saline solution and medicated with morphine 4 mg and Zofran 4 mg IV. Laboratory studies note a normal white count at 9700. Mild anemia noted at 10.9 and 32.6, normal indices. Electrolyte and renal functions are normal. Transam inases and lipase are not elevated. Serum hCG is negative. Urine sample was grossly bloody with clots from menstruation, likely contaminated, does note greater than 30 WBCs and 1+ leukocyte esterase however. No nitrates. No bacteria. A urine culture is pending. Laboratory studies were reviewed with the patient. CT scan of the abdomen and pelvis with IV contrast was ordered. Findings are concerning for some bladder wall thickening and mild surrounding infiltration concerning for cystitis. The kidneys enhance normally bilaterally without hydronephrosis. No adnexal lesion noted. No bowel obstruction. Appendix is visualized and is normal. CT findings were discussed with the patient. She was ordered ceftriaxone 2 g IV. She has been unable to provide a stool sample for analysis. C. difficile colitis was entertained, but felt to be less likely, given her other presenting symptoms. She is concerned because she has a history of UTI which turned into sepsis previously. Prior urine cultures were reviewed by myself. I explained to her that we were treating her aggressively with IV antibiotics here today. A urine culture will take about 48 hours to come back, we will contact her if we need to make any adjustments to her treatment. I prepared the patient for discharge, provided her with prescriptions for Zofran and cefdinir. The IV ceftriaxone infused. Nursing staff reported to me that they discontinued the patient's IV, and gave her her discharge papers, at which point she promptly reported feeling poorly, and she vomited again. She was reassessed by myself. She does not feel well enough to go home. IV lock was reestablished. She was given a liter bolus of normal saline solution and Phenergan 12.5 mg IV. Consultation was placed with the [facility] Hospitalist service for admission/observation. Admitting COVID test was obtained and was negative. The patient was reviewed with Dr. Erazo for further care and management. Administered Medications Discontinued Medications Sodium Chloride (Nss 1000ml) 1,000 mls @ 999 mls/hr IV .Q1H1M JAJA Stop: 02/13/22 11:06 Last Infusion: 02/13/22 11:39 Dose: 0 mls/hr Documented By: Admin: 02/13/22 10:27 Dose: 999 mls/hr Documented By: ANGEL Ceftriaxone Sodium (Rocephin) 2,000 mg in 70 mls @ 140 mls/hr IV NOW STA Stop: 02/13/22 13:58 Last Infusion: 02/13/22 14:37 Dose: 0 mls/hr Documented By: Admin: 02/13/22 13:57 Dose: 140 mls/hr Documented By: ANGEL Sodium Chloride (Nss 1000ml) 1,000 mls @ 999 mls/hr IV .Q1H1M JAJA Stop: 02/13/22 16:14 Last Admin: 02/13/22 15:26 Dose: 999 mls/hr Documented By: CYNTHIA Promethazine HCl (Phenergan) 12.5 mg in 50.5 mls @ 202 mls/hr IV NOW STA Stop: 02/13/22 15:28 Last Infusion: 02/13/22 16:02 Dose: 0 mls/hr Documented By: Admin: 02/13/22 15:26 Dose: 202 mls/hr Documented By: CYNTHIA Ioversol (Optiray 350 100ml) 85 ml IV ONCE ONE Stop: 02/13/22 12:35 Last Admin: 02/13/22 12:34 Dose: 85 ml Documented By: TAYLOR Morphine Sulfate (Morphine Sulfate 4 Mg/Ml 1 Ml Carp\Vial) 4 mg IV NOW STA Stop: 02/13/22 10:07 Last Admin: 02/13/22 10:22 Dose: 4 mg Documented By: ANGEL Morphine Sulfate (Morphine Sulfate 4 Mg/Ml 1 Ml Carp\Vial) 4 mg IV NOW STA Stop: 02/13/22 12:41 Last Admin: 02/13/22 12:47 Dose: 4 mg Documented By: CYNTHIA Ondansetron HCl (Ondansetron Inj 2 Mg/Ml 2 Ml Vial) 4 mg IV NOW STA Stop: 02/13/22 10:07 Last Admin: 02/13/22 10:22 Dose: 4 mg Documented By: ANGEL Ondansetron HCl (Ondansetron Inj 2 Mg/Ml 2 Ml Vial) 4 mg IV NOW STA Stop: 02/13/22 12:41 Last Admin: 02/13/22 12:47 Dose: 4 mg Documented By: CYNTHIA Medical Decision Making Differential Diagnosis Differential diagnoses considered included UTI, kidney stone, pyelonephritis, ovarian cyst, , ectopic , PID, tubo-ovarian abscess, infectious versus inflammatory colitis/enteritis, foodborne illness, musculoskeletal pain, among others. Medical Records Attestation: I reviewed the patient's medical records. Home Medications Current Medication List: was personally reviewed by me Laboratory Data Attestation: I reviewed the patient's lab results. Result diagrams: 02/13/22 10:12 02/13/22 10:12 Lab Results 02/13/22 02/13/22 02/13/22 Range/Units 10:12 10:12 10:12 WBC 9.76 (4.8-10.8) K/ul RBC 3.45 L (3.93-5.22) M/uL Hgb 10.9 L (12.0-16.0) g/dl Hct 32.6 L (34.1-44.9) % MCV 94.5 (80.0-100.0) fL MCH 31.6 (25.0-34.0) pg MCHC 33.4 (32.0-36.0) g/dL RDW Std Deviation 43.9 (36.4-46.3) fL RDW Coeff of Romie 12.7 (11.5-14.5) % Plt Count 348 (130-400) K/uL MPV 9.1 L (9.4-12.3) fL Immature Gran % (Auto) 0.4 % Neut % (Auto) 55.2 % Lymph % (Auto) 35.7 % [place] % (Auto) 7.3 % Eos % (Auto) 0.9 % Baso % (Auto) 0.5 % Neut # (Auto) 5.39 (1.4-6.5) K/uL Lymph # (Auto) 3.48 H (1.2-3.4) K/uL [place] # (Auto) 0.71 (0.24-0.82) K/uL Eos # (Auto) 0.09 (0-0.50) K/uL Baso # (Auto) 0.05 (0-0.2) K/uL Immature Gran # (Auto) 0.04 H (0.00-0.02) K/uL Sodium 139 (136-145) mmol/L Potassium 3.8 (3.5-5.1) mmol/L Chloride 106 (98-107) mmol/L Carbon Dioxide 27 (21-32) mmol/L Anion Gap 6 (3-11) BUN 12 (6-23) mg/dl Creatinine 0.61 (0.6-1.2) mg/dl Est Cr Clr Drug Dosing 134.6 ml/min Est GFR ( Amer) > 150.0 ml/min Est GFR (Non-Af Amer) 130.5 ml/min BUN/Creatinine Ratio 19.7 (10-20) Glucose 83 (70-99(Fasting)) mg/dl Calcium 9.0 (8.5-10.1) mg/dl Total Bilirubin 0.3 (0.2-1.0) mg/dl AST 13 (13-39) U/L ALT 7 (7-52) U/L Alkaline Phosphatase 49 (34-104) U/L Total Protein 6.9 (6.0-8.3) gm/dl Albumin 4.0 (3.4-5.0) gm/dl Globulin 2.9 (2.5-4.0) gm/dl Albumin/Globulin Ratio 1.4 (0.9-2) Lipase 44 (11-82) U/L HCG, Qual Negative (Negative) Urine Color Urine Appearance (Clear) Urine pH (4.5-7.5) Ur Specific [place] (1.000-1.030) Urine Protein (Negative) Urine Glucose (UA) (Negative) Urine Ketones (Negative) Urine Blood (Negative) Urine Nitrite (Negative) Urine Bilirubin (Negative) Urine Urobilinogen (Negative) Ur Leukocyte Esterase (Negative) Urine WBC (Auto) (0-5) /hpf Urine RBC (Auto) (0-4) /hpf U Hyaline Cast (Auto) (0-5) /lpf U Epithel Cells (Auto) (0-5) /lpf Urine Bacteria (Auto) (Negative) SARS-CoV-2, RNA, NAAT (NEGATIVE) 02/13/22 02/13/22 Range/Units 11:55 15:34 WBC (4.8-10.8) K/ul RBC (3.93-5.22) M/uL Hgb (12.0-16.0) g/dl Hct (34.1-44.9) % MCV (80.0-100.0) fL MCH (25.0-34.0) pg MCHC (32.0-36.0) g/dL RDW Std Deviation (36.4-46.3) fL RDW Coeff of Romie (11.5-14.5) % Plt Count (130-400) K/uL MPV (9.4-12.3) fL Immature Gran % (Auto) % Neut % (Auto) % Lymph % (Auto) % [place] % (Auto) % Eos % (Auto) % Baso % (Auto) % Neut # (Auto) (1.4-6.5) K/uL Lymph # (Auto) (1.2-3.4) K/uL [place] # (Auto) (0.24-0.82) K/uL Eos # (Auto) (0-0.50) K/uL Baso # (Auto) (0-0.2) K/uL Immature Gran # (Auto) (0.00-0.02) K/uL Sodium (136-145) mmol/L Potassium (3.5-5.1) mmol/L Chloride (98-107) mmol/L Carbon Dioxide (21-32) mmol/L Anion Gap (3-11) BUN (6-23) mg/dl Creatinine (0.6-1.2) mg/dl Est Cr Clr Drug Dosing ml/min Est GFR ( Amer) ml/min Est GFR (Non-Af Amer) ml/min BUN/Creatinine Ratio (10-20) Glucose (70-99(Fasting)) mg/dl Calcium (8.5-10.1) mg/dl Total Bilirubin (0.2-1.0) mg/dl AST (13-39) U/L ALT (7-52) U/L Alkaline Phosphatase (34-104) U/L Total Protein (6.0-8.3) gm/dl Albumin (3.4-5.0) gm/dl Globulin (2.5-4.0) gm/dl Albumin/Globulin Ratio (0.9-2) Lipase (11-82) U/L HCG, Qual (Negative) Urine Color [place] Urine Appearance Cloudy A (Clear) Urine pH 6.5 (4.5-7.5) Ur Specific [place] 1.009 (1.000-1.030) Urine Protein Negative (Negative) Urine Glucose (UA) Negative (Negative) Urine Ketones Negative (Negative) Urine Blood 3+ H (Negative) Urine Nitrite Negative (Negative) Urine Bilirubin Negative (Negative) Urine Urobilinogen Negative (Negative) Ur Leukocyte Esterase 1+ H (Negative) Urine WBC (Auto) >30 H (0-5) /hpf Urine RBC (Auto) >30 H (0-4) /hpf U Hyaline Cast (Auto) 1-5 (0-5) /lpf U Epithel Cells (Auto) >30 H (0-5) /lpf Urine Bacteria (Auto) Negative (Negative) SARS-CoV-2, RNA, NAAT NEGATIVE (NEGATIVE) Imaging Data Attestation: I personally reviewed and interpreted this imaging study as amisha lucy: Radiologist's Impression: Abdomen/Pelvis CT 02/13/22 12:20 CT SCAN OF THE ABDOMEN AND PELVIS WITH IV CONTRAST CLINICAL HISTORY: Left flank pain. COMPARISON STUDY: Abdominal CT dated 02/16/2021. TECHNIQUE: Following the IV administration of 87 cc of Optiray 350, CT scan of the abdomen and pelvis is performed from the lung bases to the proximal femora. Images are reviewed in the axial, sagittal, and coronal planes. IV contrast was administered without complication. A dose lowering technique was utilized adhering to the principles of ALARA. CT DOSE: 291.03 mGy.cm FINDINGS: Lung bases: The heart is normal in size and without pericardial effusion. There are trace pleural effusions with dependent atelectasis. The lung bases are otherwise clear. Liver: The contrast-enhanced liver is normal in size, contour, and attenuation. There is no intrahepatic biliary ductal dilatation. The hepatic veins and portal veins are patent. Gallbladder: Unremarkable. Spleen: Normal in size and attenuation. Pancreas: Unremarkable. Adrenal glands: Unremarkable. Kidneys: The contrast enhanced kidneys are normal in size and without hydronephrosis. The kidneys enhance symmetrically. Abdominal vasculature: The abdominal aorta is normal in course and caliber. Bowel: There is moderate colonic fecal retention. No bowel obstruction is seen. The appendix is well-visualized and normal. Peritoneum: There is no intraperitoneal free air or abdominal ascites. Lymphadenopathy: None. Pelvic viscera: The bladder wall appears thickened and there is mild surrounding infiltration. The uterus and adnexa are normal as visualized noting bilateral ovarian follicles. There is trace free fluid in the cul-de-sac. Skeletal structures: No lytic or blastic lesions are seen. IMPRESSION: 1. Findings suggest cystitis. Correlate with clinical findings and urinalysis. 2. Trace free fluid in the cul-de-sac is nonspecific and likely within physiologic limits. 3. Trace pleural effusions. ACT 112: Negative or not required by law. Electronically signed by: Qamar Benítez M.D. 02/13/2022 12:49 PM MDM Narrative See ED course. Impression & Plan Cystitis, Left sided abdominal pain, Nausea, vomiting and diarrhea Discharge Plan Visit Data Chief Complaint: Abdominal Pain Stated Complaint: L SIDE ABD PAIN, WEAK, VOMITING ED Provider: Lee Melton ED Midlevel Provider: Bethany Palencia Discharge Problem: Cystitis, Left sided abdominal pain, Nausea, vomiting and diarrhea Patient Disposition: Admitted As Inpatient Discharge Instructions Activity Restrictions/Additional Instructions: DO NOT drive, drink alcohol, operate machinery, or perform dangerous activities today. You were given medications in the ER that can affect your ability to safely function or operate a vehicle. Cefdinir 300 m tablet twice daily for 10 days for your urinary tract infection. All antibiotics can cause diarrhea. If this occurs and you feel worse or it does not resolve in 1-2 days follow up with your doctor or return to the Emergency Department as this could be signs of serious underlying problems. Any medication can cause an allergic reaction, stop the pills immediately and return to the ER for rash, hives, breathing difficulties, or swelling. Ibuprofen(Motrin, Advil) may be used for fever or pain. Use 600mg every six hours as needed. Take with food. Avoid using more than 2400mg in a 24 hour period. Do not use 2400mg per day for more than three consecutive days without physician direction. Prolonged inappropriate use can lead to stomach upset or ulcers. This is available over the counter and typically comes in 200mg tablets. (AND/OR) Acetaminophen(Tylenol) may be used for fever or pain. Use 1000mg every eight hours as needed. Avoid using more than 3000mg in a 24 hour period. This is available over the counter. Zofran(odansetron) tablets 4mg: Take one and allow it to dissolve in your mouth every four hours as needed for nausea or vomiting. Rest and drink plenty of fluids as tolerated. Slow sips of water or sports drinks are recommended instead of large amounts all at once. Continue current medications. Once your stomach is settled start with a clear liquid diet (jello, soup broth, etc.) and then advance as tolerated. You should avoid full, heavy meals for about 24 hrs from the time your symptoms resolved. Return to the ER immediately for worsening or persistent abdominal pain, vomiting, fevers, chest pains, difficulty breathing, black or bloody stools, worsening of your condition, or as needed. Return to the ER or follow up with your primary provider in 8-12 hours for a recheck of your current condition. Follow up with your primary physician in 1-2 days for a recheck of your current condition. Interventions: ED Discharge Assessment Last Done: 02/13/22 15:13 Forms Stand Alone Forms: My [facility], Virtual Emergency Department, Important Visit Information Prescriptions Prescriptions: New ondansetron 4 mg tablet,disintegrating 4 mg PO Q6H PRN (Reason: nausea and vomiting) Qty: 20 0RF No Action epinephrine [EpiPen] 0.3 mg/0.3 mL auto-injector 0.3 mg IM Q4H PRN (Reason: anaphylaxis) Qty: 1 0RF prenat.vits,vincent,[id number] Tablet 1 tab PO DAILY Qty: 30 2RF sertraline [Zoloft] 50 mg tablet 50 mg PO DAILY Qty: 30 2RF methenamine hippurate 1 gram tablet 1 g PO Q12H Qty: 60 11RF naproxen 500 mg Tablet 500 mg PO BID PRN (Reason: Headache) gabapentin 300 mg capsule 300 mg PO TID PRN (Reason: Pain) diphenhydramine HCl [Benadryl] 25 mg Capsule 25 mg PO DIRECTED PRN (Reason: Allergic Reaction) Referrals Referrals: Doyle Carrion MD [Primary Care Provider] -
[2022-02-13 10:40] LABS: Basophils # (auto) 0.05 K/uL (0-0.2); Basophils % (auto) 0.5 %; Eosinophils # (auto) 0.09 K/uL (0-0.50); Eosinophils % (auto) 0.9 %; Hematocrit (blood only) 32.6 % (34.1-44.9); Hemoglobin 10.9 g/dl (12.0-16.0); Immature Granulocytes # (auto) 0.04 K/uL (0.00-0.02); Immature Granulocytes % (auto) 0.4 %; Lymphocytes # (auto) 3.48 K/uL (1.2-3.4); Lymphocytes % (auto) 35.7 %; Mean Corpuscular Hemoglobin 31.6 pg (25.0-34.0); Mean Corpuscular Hgb Conc 33.4 g/dL (32.0-36.0); Mean Corpuscular Volume 94.5 fL (80.0-100.0); Mean Platelet Volume 9.1 fL (9.4-12.3); Monocytes # (auto) 0.71 K/uL (0.24-0.82); Monocytes % (auto) 7.3 %; Neutrophils # (auto) 5.39 K/uL (1.4-6.5); Neutrophils % (auto) 55.2 %; Platelet Count 348 K/uL (130-400); RDW Coefficient of Variation 12.7 % (11.5-14.5); RDW Standard Deviation 43.9 fL (36.4-46.3); Red Blood Count 3.45 M/uL (3.93-5.22); White Blood Count 9.76 K/ul (4.8-10.8)
[2022-02-13 10:58] LABS: Pregnancy Test, Serum Negative (Negative)
[2022-02-13 11:05] LABS: Alanine Aminotransferase 7 U/L (7-52); Albumin Globulin Ratio 1.4 (0.9-2); Alkaline Phosphatase 49 U/L (34-104); Anion Gap 6 (3-11); Aspartate Aminotransferase 13 U/L (13-39); BUN Creatinine Ratio 19.7 (10-20); Bilirubin,Total 0.3 mg/dl (0.2-1.0); Blood Urea Nitrogen 12 mg/dl (6-23); Carbon Dioxide 27 mmol/L (21-32); Chloride 106 mmol/L (98-107); Creatinine Clr Calc Pharmacy 134.6 ml/min; Est GFR (African American) > 150.0 ml/min; Est GFR (Non-African American) 130.5 ml/min; Globulin 2.9 gm/dl (2.5-4.0); Glucose 83 mg/dl (70-99(Fasting)); Lipase 44 U/L (11-82); Potassium 3.8 mmol/L (3.5-5.1); Sodium 139 mmol/L (136-145); Total Protein 6.9 gm/dl (6.0-8.3)
[2022-02-13 12:11] LABS: Appearance Urine Cloudy (Clear); Bacteria Urine Automated Negative (Negative); Bilirubin Urine Negative (Negative); Blood Urine 3+ (Negative); Color Urine Orange; Epithelial Cell Urine Auto >30 /lpf (0-5); Glucose Urine UA Negative (Negative); Ketones Urine Negative (Negative); Leukocyte Esterase Urine 1+ (Negative); Nitrite Urine Negative (Negative); Protein Urine Negative (Negative); RBC Urine Automated >30 /hpf (0-4); Specific Gravity Urine 1.009 (1.000-1.030); Urobilinogen Urine Negative (Negative); WBC Urine Automated >30 /hpf (0-5); pH Urine 6.5 (4.5-7.5)
[2022-02-13] MEDS ORDERED: OPTIRAY 350 100ml IV ONE (12:34)
--- NOTE | 2022-02-13 12:50 | CT Scan Report ---
CT SCAN OF THE ABDOMEN AND PELVIS WITH IV CONTRAST CLINICAL HISTORY: Left flank pain. COMPARISON STUDY: Abdominal CT dated 02/16/2021. TECHNIQUE: Following the IV administration of 87 cc of Optiray 350, CT scan of the abdomen and pelvi s is performed from the lung bases to the proximal femora. Images are reviewed in the axial, sagittal , and coronal planes. IV contrast was administered without complication. A dose lowering technique wa s utilized adhering to the principles of ALARA. CT DOSE: 291.03 mGy.cm FINDINGS: Lung bases: The heart is normal in size and without pericardial effusion. There are trace pleural eff usions with dependent atelectasis. The lung bases are otherwise clear. Liver: The contrast-enhanced liver is normal in size, contour, and attenuation. There is no intrahepa tic biliary ductal dilatation. The hepatic veins and portal veins are patent. Gallbladder: Unremarkable. Spleen: Normal in size and attenuation. Pancreas: Unremarkable. Adrenal glands: Unremarkable. Kidneys: The contrast enhanced kidneys are normal in size and without hydronephrosis. The kidneys enh ance symmetrically. Abdominal vasculature: The abdominal aorta is normal in course and caliber. Bowel: There is moderate colonic fecal retention. No bowel obstruction is seen. The appendix is well -visualized and normal. Peritoneum: There is no intraperitoneal free air or abdominal ascites. Lymphadenopathy: None. Pelvic viscera: The bladder wall appears thickened and there is mild surrounding infiltration. The ut erus and adnexa are normal as visualized noting bilateral ovarian follicles. There is trace free flui d in the cul-de-sac. Skeletal structures: No lytic or blastic lesions are seen. IMPRESSION: 1. Findings suggest cystitis. Correlate with clinical findings and urinalysis. 2. Trace free fluid in the cul-de-sac is nonspecific and likely within physiologic limits. 3. Trace pleural effusions. ACT 112: Negative or not required by law. Electronically signed by: Qamar Benítez M.D. 02/13/2022 12:49 PM
[2022-02-13] MEDS ORDERED: cefTRIAXone SODIUM 2,000 MG/70 ML BAG IV STA (13:29)
[2022-02-13] MEDS ORDERED: PROMETHAZINE 12.5 MG/50.5 ML BAG IV STA (15:14)
--- NOTE | 2022-02-13 15:56 | History & Physical Report ---
Date of Service February 13, 2022 Assessment & Plan (1) Left sided abdominal pain: Plan: left sided abdominal pain, with diarrhea, and cystitis on CT, cultured and started on Ceftriaxone, stool PCR pending on admission ua is abnormal on intake but pt is having her menses constipation could be issue, but too nauseous to take po cathartic, once nausea calms down will consider po dosing stress steroids for one day add Pepcid in case has some gastritis from naproxen, hgb stable did describe dark diarrhea pt is mildly anemic, this has been long standing possible from ch disease, will have iron level check in am (2) Nausea, vomiting and diarrhea: Plan: IV fluids with potassium, antiemetic medications, clear liquid diet advance as can be (3) Psoriatic arthritis: Plan: Patient was on pulse Medrol Dosepak prior to her being admitted we will give her 24 hours of hydrocortisone 50 every 8 and then depending on her improvement or not considering continuing oral prednisone versus just stopping it. Plan DVT prevention is are SCDs History of Present Illness Primary Care Provider: Doyle Carrion MD 21-year-old female with past medical history significant for anxiety, fibromyalgia, psoriatic arthritis on monthly methotrexate, who presents emergency department for evaluation of left lower quadrant abdominal pain with associated nausea, vomiting and diarrhea. Her symptoms started about 3 days ago. She has developed nausea and anorexic. She is using Zofran, gabapentin and Aleve. She states the pain is in the left lower quadrant of the abdomen, radiating toward the left mid abdomen and up into her left axilla. She reports diarrhea that is dark and loose but nonbloody and nonmelanotic. She does take daily naproxen. She is currently on a Medrol Dosepak from her Shear Tender, she recently got a pneumonia vaccine and they thought that this caused an exacerbation of her psoriatic arthritis. She finished a Z-Alexis 2 days ago for a productive cough. She is currently menstruating. She is sexually active. No concern for or STIs. No cough, wheezing, chest pain or shortness of breath. She reports a history of sepsis from a UTI in the past. CT Abd/Pelvis shows some cystitis, and some increased stool burden Allergies Allergy/AdvReac Type Severity Reaction Status Date / Time clindamycin Allergy Intermediate Rash Verified 02/09/22 08:28 prednisone AdvReac Intermediate SWELLING, Verified 02/09/22 08:28 LEGS NUMB Home Medications Medication Instructions Recorded Confirmed Type naproxen 500 mg tablet 500 mg PO BID PRN Headache 12/10/20 02/13/22 History gabapentin 300 mg capsule 300 mg PO TID PRN Pain 02/02/21 02/13/22 History diphenhydramine HCl 25 mg capsule 25 mg PO DIRECTED PRN Allergic 02/16/21 02/09/22 History (Benadryl) Reaction epinephrine 0.3 mg/0.3 mL 0.3 mg (0.3 mL) IM Q4H PRN 10/18/21 02/09/22 Rx injection, auto-injector (EpiPen) anaphylaxis #1 ea prenat.vits,vincent,[id number] 1 tab PO DAILY #30 tabs 10/18/21 02/09/22 Rx sertraline 50 mg tablet (Zoloft) 50 mg PO DAILY #30 tabs 10/18/21 02/13/22 Rx methenamine hippurate 1 gram tablet 1 g PO Q12H #60 tabs 01/08/22 02/09/22 Rx ondansetron 4 mg disintegrating 4 mg PO Q6H PRN nausea and 02/13/22 Rx tablet vomiting #20 tabs Past Med/Surg History Medical History (Updated 02/13/22 @ 13:30 by Bethany Palencia) 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 Psoriatic arthritis Sepsis UTI (urinary tract infection) Surgical History History of placement of ear tubes History of sinus surgery History of surgery Surgery for popliteal artery entrapment syndrome surgery History of wisdom tooth extraction Family History Grandmother (Paternal) Diabetes Grandfather (Paternal) Heart disease Brother Asthma Other Allergic rhinitis Social History Smoking Status: Never smoker Hx Alcohol Use: Yes Hx Substance Use: No Preferred Language: Mongolian Communication Ability: Effective 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 Beliefs That Will Affect Care: None marital status: Single Current Living Situation: Other Current Living Situation Comment: 3 roomates Feels Safe at Home: Yes Assistive Devices: None Review of Systems Review of Systems: Mild distress and fatigue no headache, no visual changes no speech or swallowing issues no chest pain, pressure or palpitations no shortness of breath, cough or wheezes Left-sided abdominal pain, significant nausea vomiting & diarrhea no dysuria, hematuria or frequency Resolution of previous arthritic flareup/focal joint pain no back pain, CVA tenderness or radicular pain no bruising, bleeding or rashes no focal signs of weakness or numbness or altered sensation no complaints of anxiety or depression.. Physical Exam Physical Exam: The patient appeared well nourished and normally developed. Vital signs as documented. Head exam is normocephalic atraumatic Neck is without JVD, thyromegaly, or carotid bruits. Lungs are clear to auscultation, no focal loss of breath sounds Cardiac exam, Rhythm is regular.. No murmurs, rubs or gallops. Abdominal exam reveals normal bowel sounds, soft non tender, no masses Extremities are nonedematous and both pedal pulses are present, no joint flare Neurologic exam is alert and oriented, no focal loss of strength or sensation Skin is without bruises or rashes Psychologically is without concerns for anxiety or depression.. Results & Data Results & Data ([facility]) Vital Signs (Past 12 Hours) Vital Signs Temp Pulse Pulse Resp BP BP Pulse Ox 02/13/22 15:35 65 18 114/68 99 02/13/22 15:13 98.8 F 70 18 100/61 02/13/22 14:00 64 16 81/68 L 94 02/13/22 11:29 54 L 16 99/60 L 98 02/13/22 09:39 98.4 F 77 16 117/66 97 O2 Del Method 02/13/22 15:35 Room Air 02/13/22 15:13 Room Air 02/13/22 14:00 02/13/22 11:29 Room Air 02/13/22 09:39 Room Air Diagnostic Findings Abdomen/Pelvis CT 02/13/22 12:20 CT SCAN OF THE ABDOMEN AND PELVIS WITH IV CONTRAST CLINICAL HISTORY: Left flank pain. COMPARISON STUDY: Abdominal CT dated 02/16/2021. TECHNIQUE: Following the IV administration of 87 cc of Optiray 350, CT scan of the abdomen and pelvis is performed from the lung bases to the proximal femora. Images are reviewed in the axial, sagittal, and coronal planes. IV contrast was administered without complication. A dose lowering technique was utilized adhering to the principles of ALARA. CT DOSE: 291.03 mGy.cm FINDINGS: Lung bases: The heart is normal in size and without pericardial effusion. There are trace pleural effusions with dependent atelectasis. The lung bases are otherwise clear. Liver: The contrast-enhanced liver is normal in size, contour, and attenuation. There is no intrahepatic biliary ductal dilatation. The hepatic veins and portal veins are patent. Gallbladder: Unremarkable. Spleen: Normal in size and attenuation. Pancreas: Unremarkable. Adrenal glands: Unremarkable. Kidneys: The contrast enhanced kidneys are normal in size and without hydronephrosis. The kidneys enhance symmetrically. Abdominal vasculature: The abdominal aorta is normal in course and caliber. Bowel: There is moderate colonic fecal retention. No bowel obstruction is seen. The appendix is well-visualized and normal. Peritoneum: There is no intraperitoneal free air or abdominal ascites. Lymphadenopathy: None. Pelvic viscera: The bladder wall appears thickened and there is mild surrounding infiltration. The uterus and adnexa are normal as visualized noting bilateral ovarian follicles. There is trace free fluid in the cul-de-sac. Skeletal structures: No lytic or blastic lesions are seen. IMPRESSION: 1. Findings suggest cystitis. Correlate with clinical findings and urinalysis. 2. Trace free fluid in the cul-de-sac is nonspecific and likely within physiologic limits. 3. Trace pleural effusions. ACT 112: Negative or not required by law. Electronically signed by: Qamar Benítez M.D. 02/13/2022 12:49 PM Code Status & VTE Plan VTE Prophylaxis Plan VTE Prophylaxis will be ordered: Yes PG Care Time/CCT Total # of Minutes Spent Total Time Spent with Patient: Total time spent is greater than 50% in coordination of care (as documented) at patient's floor/unit and/or counseling patient: Coding Level of Care Code INT OBSERVATION CARE 50M LVL 2 Diagnoses Left sided abdominal pain R10.9 Nausea, vomiting and diarrhea R11.2; R19.7 Psoriatic arthritis L40.50
[2022-02-13] MEDS ORDERED: LORazepam 1 MG/1 ML SYR IV PRN (17:18)
[2022-02-13] MEDS ORDERED: HYDROCORTISONE SOD SUCCINATE 100 MG/2 ML VIAL IV STA (17:18)
[2022-02-13] MEDS ORDERED: GABAPENTIN 300 MG CAP PO PRN (17:18)
[2022-02-13] MEDS ORDERED: HYDROCORTISONE SOD SUCCINATE 100 MG/2 ML VIAL IV SCH (17:18)
[2022-02-13] MEDS ORDERED: NAPROXEN 250 MG TAB PO PRN (17:18)
[2022-02-13] MEDS ORDERED: LORazepam 0.25 MG in SYRINGE 0 ML IV PRN (17:52)
[2022-02-13] MEDS: SODIUM CHLORIDE 0.9% 1000ML 1,000 ML IV SCH (17:55)
[2022-02-13] MEDS ORDERED: HYDROCORTISONE SOD 50 MG in SYRINGE 0 ML IV ONE (18:00)
[2022-02-13] MEDS ORDERED: POTASSIUM CHLORIDE 20 MEQ in SODIUM CHLORIDE 0.9% 1000ML 1,000 ML IV SCH (18:00)
[2022-02-13] MEDS: FAMOTIDINE 20 MG in SYRINGE 3 ML IV SCH (19:44)
[2022-02-13] MEDS: PROMETHAZINE HCL 12.5 MG in SODIUM CHLORIDE 0.9% 50 ML IV PRN (21:20)
[2022-02-14] MEDS: HYDROCORTISONE SOD 50 MG in SYRINGE 0 ML IV SCH ×2 (01:00→12:52)
[2022-02-14] MEDS: SERTRALINE HCL 50 MG TABLET PO SCH (08:16)
[2022-02-14] MEDS: FAMOTIDINE 20 MG in SYRINGE 3 ML IV SCH ×2 (08:21→19:36)
[2022-02-14 08:27] LABS: Hematocrit (blood only) 31.4 % (34.1-44.9); Hemoglobin 10.5 g/dl (12.0-16.0); Mean Corpuscular Hemoglobin 31.5 pg (25.0-34.0); Mean Corpuscular Hgb Conc 33.4 g/dL (32.0-36.0); Mean Corpuscular Volume 94.3 fL (80.0-100.0); Platelet Count 316 K/uL (130-400); RDW Coefficient of Variation 12.5 % (11.5-14.5); RDW Standard Deviation 43.4 fL (36.4-46.3); Red Blood Count 3.33 M/uL (3.93-5.22); White Blood Count 11.78 K/ul (4.8-10.8)
[2022-02-14 08:49] LABS: Anion Gap 5 (3-11); BUN Creatinine Ratio 10.5 (10-20); Blood Urea Nitrogen 6 mg/dl (6-23); Calcium 8.6 mg/dl (8.5-10.1); Carbon Dioxide 26 mmol/L (21-32); Chloride 109 mmol/L (98-107); Creatinine Clr Calc Pharmacy 144.1 ml/min; Est GFR (African American) > 150.0 ml/min; Est GFR (Non-African American) 133.5 ml/min; Glucose 96 mg/dl (70-99(Fasting)); Iron 28 mcg/dl (35-150); Magnesium 1.8 mg/dl (1.7-2.4); Sodium 140 mmol/L (136-145); Unsaturated Iron Binding Cap 358 mcg/dl (155-355)
[2022-02-14] MEDS ORDERED: FLUARIX QUADRIVALENT 0.5 ML SYR IM ONE (09:27)
[2022-02-14] MEDS ORDERED: cefTRIAXone SODIUM 2,000 MG in DEXTROSE 5% 50 ML IV ONE (11:00)
[2022-02-14] MEDS: POLYETHYLENE (MIRALAX) 17 GM PACK PO SCH (11:20)
[2022-02-14] MEDS ORDERED: cefTRIAXone SODIUM 2,000 MG in DEXTROSE 5% 50 ML IV SCH (14:00)
--- NOTE | 2022-02-14 16:43 | Hospitalist Progress Note ---
Date of Service February 14, 2022 Assessment & Plan (1) Left sided abdominal pain: Plan: Left sided abdominal pain, with diarrhea, and cystitis on CT, cultured and started on Ceftriaxone, stool PCR pending on admission. - UA is abnormal on intake but pt is having her menses. - constipation could be issue; started Miralax - Added Pepcid in case has some gastritis from naproxen, hgb stable did describe dark diarrhea pt is mildly anemic, this has been long standing possible from ch disease, will have iron level check in am. Low. (2) Nausea, vomiting and diarrhea: Plan: IV fluids with potassium, antiemetic medications, clear liquid diet advance as can be (3) Psoriatic arthritis: Plan: Patient was on pulse Medrol Dosepak prior to her being admitted. - Resume dosepak dosing. No need for stress-dose steroids. Plan DVT prevention is are SCDs Admission and Anticipated Discharge Date Admission Date: February 13, 2022 Subjective Doing well in the morning, but then with some more abdominal pain in the afternoon. Physical Exam Constitutional: WD/WN, vitals as above Eyes: EOM intact bilaterally; no conjunctival abnormality ENMT: external ear and nose normal, oropharynx normal Neck: trachea midline, no thyromegaly normal visual inspection Respiratory: normal respiratory effort, lungs clear to auscultation no respiratory distress Cardiovascular: RRR, no murmur, no edema Gastrointestinal (Abdomen): Inspection/Auscultation: abdomen normal to inspection; abdomen not distended Musculoskeletal: no cyanosis or clubbing, extremities motor strength 5/5 Skin: no rashes, warm and dry Neurologic: moves all extremities and awake Psychiatric: Orientation: alert, oriented to person and cooperative Results & Data Results & Data ([facility]) Vital Signs (Past 12 Hours) Vital Signs Temp Pulse Resp BP BP Pulse Ox O2 Del Method 02/14/22 16:26 36.8 C 101 H 16 109/65 90/53 L 98 02/14/22 14:39 36.8 C 101 H 16 109/65 98 Room Air 02/14/22 08:45 36.7 C 56 L 16 98/62 L 98 Room Air PG Care Time/CCT Total # of Minutes Spent Total Time Spent with Patient: Total time spent is greater than 50% in coordination of care (as documented) at patient's floor/unit and/or counseling patient: Coding Level of Care Code 59121 Subseq Hosp Care Lvl 2 Diagnoses Left sided abdominal pain R10.9 Nausea, vomiting and diarrhea R11.2; R19.7 Psoriatic arthritis L40.50
[2022-02-14] MEDS: PROMETHAZINE HCL 12.5 MG in SODIUM CHLORIDE 0.9% 50 ML IV PRN ×2 (18:01→23:48)
[2022-02-14] MEDS: MoRPHine SULFATE 2 MG/ML CARP IV PRN ×2 (18:28→23:56)
[2022-02-15 06:47] LABS: Hematocrit (blood only) 31.4 % (34.1-44.9); Hemoglobin 10.3 g/dl (12.0-16.0); Mean Corpuscular Hemoglobin 30.9 pg (25.0-34.0); Mean Corpuscular Hgb Conc 32.8 g/dL (32.0-36.0); Mean Corpuscular Volume 94.3 fL (80.0-100.0); Mean Platelet Volume 8.9 fL (9.4-12.3); Platelet Count 306 K/uL (130-400); RDW Coefficient of Variation 12.5 % (11.5-14.5); RDW Standard Deviation 43.2 fL (36.4-46.3); Red Blood Count 3.33 M/uL (3.93-5.22); White Blood Count 9.44 K/ul (4.8-10.8)
[2022-02-15 07:41] LABS: Anion Gap 6 (3-11); BUN Creatinine Ratio 17.7 (10-20); Blood Urea Nitrogen 11 mg/dl (6-23); Calcium 8.7 mg/dl (8.5-10.1); Carbon Dioxide 27 mmol/L (21-32); Chloride 108 mmol/L (98-107); Creatinine Clr Calc Pharmacy 132.4 ml/min; Est GFR (African American) > 150.0 ml/min; Est GFR (Non-African American) 129.8 ml/min; Glucose 94 mg/dl (70-99(Fasting)); Magnesium 1.9 mg/dl (1.7-2.4); Potassium 3.7 mmol/L (3.5-5.1); Sodium 141 mmol/L (136-145)
[2022-02-15] MEDS: SERTRALINE HCL 50 MG TABLET PO SCH (09:32)
[2022-02-15] MEDS: cefTRIAXone SODIUM 1,000 MG in DEXTROSE 5% 50 ML IV SCH (09:35)
[2022-02-15] MEDS: POLYETHYLENE (MIRALAX) 17 GM PACK PO SCH (09:35)
[2022-02-15] MEDS: FAMOTIDINE 20 MG in SYRINGE 3 ML IV SCH (09:36)
[2022-02-15] MEDS: MoRPHine SULFATE 2 MG/ML CARP IV PRN ×3 (09:36→21:26)
[2022-02-15] MEDS: PROMETHAZINE HCL 12.5 MG in SODIUM CHLORIDE 0.9% 50 ML IV PRN (11:33)
[2022-02-15] MEDS: SODIUM CHLORIDE 0.9% 1000ML 1,000 ML IV SCH (13:27)
[2022-02-15] MEDS: METOCLOPRAMIDE HCL INJ 5 MG/ML 2 ML VIAL IV SCH ×2 (14:39→20:35)
--- NOTE | 2022-02-15 15:19 | Hospitalist Progress Note ---
Date of Service February 15, 2022 Assessment & Plan (1) Left sided abdominal pain: Plan: Tenderness appears to be more epigastric and right upper quadrant at this time. Abdominal ultrasound pending. Currently on intravenous Rocephin. (2) Nausea, vomiting and diarrhea: Plan: Scheduled Reglan intravenous dosing ordered. IV fluids with potassium. (3) Psoriatic arthritis: Plan: Patient was on pulse Medrol Dosepak prior to her being admitted. Resumed dosepak dosing. No need for stress-dose steroids. Plan DVT prevention: SCDs Disposition: Eventual discharge to home Admission and Anticipated Discharge Date Admission Date: February 13, 2022 Subjective The patient has persistent nausea and complains of diffuse abdominal discomfort. She seems to be more tender in the right upper quadrant and mid epigastric region. Pepcid switched to Protonix. IV fluids ordered due to poor oral intake. Scheduled IV Reglan ordered for persistent nausea. Will obtain abdominal ultrasound. Group B strep isolated in the urine but this should not be causing her abdominal complaints. I spoke with her mother, Marly, by phone. Review of Systems Review of Systems: Constitutional-no fever or chills ENT-no blurred vision, no double vision, no epistaxis, no sore throat Respiratory-no cough, no wheezing, no shortness of breath Cardiac-no palpitations, no chest pain, no syncope GI- nausea. Intermittent diarrhea. No vomiting, melena, hematochezia -no urinary retention, no urinary incontinence, no dysuria, no hematuria Musculoskeletal-no joint pain, no muscle tenderness Skin-no bruising, no rashes, no pruritus Neuro-no isolated weakness, no paresthesia, no weakness Psych-no depression, no anxiety Physical Exam Physical Exam: General-alert and oriented x3, no fevers, no chills HEENT-head atraumatic and normocephalic, pupils equal and reactive to light, extraocular muscles intact Neck-no lymphadenopathy or thyromegaly, trachea midline Chest-clear to auscultation percussion. No rales wheezing or rhonchi Cardiac-regular rate and rhythm, normal S1 and S2, no murmurs Abdomen-mild tenderness in the epigastric and right upper quadrant area. No masses. No rebound or guarding. Bowel sounds are active Extremities-no cyanosis, clubbing, or edema Neuro-cranial nerves II through XII intact, motor and sensory function within normal limits, strength symmetrical , no focal deficits Psych-normal affect, normal mood Results & Data Results & Data ([facility]) Vital Signs (Past 12 Hours) Vital Signs Temp Pulse Resp BP Pulse Ox O2 Del Method 02/15/22 11:25 35.9 C L 75 16 108/71 99 Room Air 02/15/22 07:49 36.7 C 62 16 108/67 97 Room Air Laboratory Results 02/15/22 06:31 02/15/22 06:31 PG Care Time/CCT Total # of Minutes Spent Total Time Spent with Patient: Total time spent is greater than 50% in coordination of care (as documented) at patient's floor/unit and/or counseling patient: Coding Level of Care Code 98643 Subseq Hosp Care Lvl 3 Diagnoses Left sided abdominal pain R10.9 Nausea, vomiting and diarrhea R11.2; R19.7 Psoriatic arthritis L40.50
[2022-02-15 15:27] LABS: Adenovirus F 40/41 PCR Not Detected (NotDetected); Astrovirus PCR Not Detected (NotDetected); Campylobacter PCR Not Detected (NotDetected); Clostridium diff Toxin A/B PCR Not Detected (NotDetected); Cryptosporidium PCR Not Detected (NotDetected); Cyclospora cayetanensis PCR Not Detected (NotDetected); Entamoeba histolytica PCR Not Detected (NotDetected); Enteroaggregative E.coli(EAEC) Not Detected (NotDetected); Enteropathogenic E.coli (EPEC) Not Detected (NotDetected); Enterotoxigenic E.coli (ETEC) Not Detected (NotDetected); Giardia lamblia PCR Not Detected (NotDetected); Norovirus GI/GII PCR Not Detected (NotDetected); Plesiomonas shigelloides PCR Not Detected (NotDetected); Rotavirus A PCR Not Detected (NotDetected); Salmonella PCR Not Detected (NotDetected); Sapovirus PCR Not Detected (NotDetected); Shiga-like Toxin E.coli (STEC) Not Detected (NotDetected); Shigella/Enteroinvasive E.coli Not Detected (NotDetected); Vibrio cholerae PCR Not Detected (NotDetected); Vibrio species PCR Not Detected (NotDetected); Yersinia enterocolitica PCR Not Detected (NotDetected)
--- NOTE | 2022-02-15 20:05 | Ultrasound Report ---
US abdomen limited HISTORY: 21 years-old Female nausea, abdominal pain nodule with right upper quadrant abdominal pain COMPARISON: CT 02/13/2022 TECHNIQUE: Multiple real-time sonographic images of the abdominal right upper quadrant were obtained assessing grayscale appearance and color flow FINDINGS: The visualized pancreas is unremarkable. The liver appears normal. Unremarkable gallbladder. Normal c ommon bile duct. No hydronephrosis. IMPRESSION: Unremarkable exam. ACT 112: Negative or not required by law. The above report was generated using voice recognition software. It may contain grammatical, syntax o r spelling errors. Electronically signed by: Mayito Mares M.D. 02/15/2022 8:03 PM
[2022-02-15] MEDS: PANTOprazole 40 MG in SYRINGE 0 ML IV SCH (20:35)
[2022-02-16] MEDS: METOCLOPRAMIDE HCL INJ 5 MG/ML 2 ML VIAL IV SCH ×2 (00:23→06:38)
[2022-02-16] MEDS: SODIUM CHLORIDE 0.9% 1000ML 1,000 ML IV SCH (02:14)
[2022-02-16 06:39] LABS: Hematocrit (blood only) 30.3 % (34.1-44.9); Hemoglobin 10.5 g/dl (12.0-16.0); Mean Corpuscular Hemoglobin 32.2 pg (25.0-34.0); Mean Corpuscular Hgb Conc 34.7 g/dL (32.0-36.0); Mean Corpuscular Volume 92.9 fL (80.0-100.0); Mean Platelet Volume 8.9 fL (9.4-12.3); Platelet Count 325 K/uL (130-400); RDW Standard Deviation 40.8 fL (36.4-46.3); Red Blood Count 3.26 M/uL (3.93-5.22); White Blood Count 12.44 K/ul (4.8-10.8)
[2022-02-16 07:07] LABS: Anion Gap 5 (3-11); BUN Creatinine Ratio 15.5 (10-20); Blood Urea Nitrogen 9 mg/dl (6-23); Calcium 8.4 mg/dl (8.5-10.1); Carbon Dioxide 27 mmol/L (21-32); Chloride 108 mmol/L (98-107); Creatinine Clr Calc Pharmacy 141.6 ml/min; Est GFR (African American) > 150.0 ml/min; Est GFR (Non-African American) 132.7 ml/min; Glucose 94 mg/dl (70-99(Fasting)); Magnesium 1.9 mg/dl (1.7-2.4); Potassium 3.6 mmol/L (3.5-5.1); Sodium 140 mmol/L (136-145)
[2022-02-16] MEDS: POLYETHYLENE (MIRALAX) 17 GM PACK PO SCH (07:28)
[2022-02-16] MEDS: SERTRALINE HCL 50 MG TABLET PO SCH (07:29)
[2022-02-16] MEDS: PANTOprazole 40 MG in SYRINGE 0 ML IV SCH (07:29)
[2022-02-16] MEDS: cefTRIAXone SODIUM 1,000 MG in DEXTROSE 5% 50 ML IV SCH (08:36)
--- NOTE | 2022-02-16 11:08 | Discharge Summary ---
Date of Service February 16, 2022 Admission HPI Per Admitting Provider 21-year-old female with past medical history significant for anxiety, fibromyalgia, psoriatic arthritis on monthly methotrexate, who presents emergency department for evaluation of left lower quadrant abdominal pain with associated nausea, vomiting and diarrhea. Her symptoms started about 3 days ago. She has developed nausea and anorexic. She is using Zofran, gabapentin and Aleve. She states the pain is in the left lower quadrant of the abdomen, radiating toward the left mid abdomen and up into her left axilla. She reports diarrhea that is dark and loose but nonbloody and nonmelanotic. She does take daily naproxen. She is currently on a Medrol Dosepak from her Lump Receiver, she recently got a pneumonia vaccine and they thought that this caused an exacerbation of her psoriatic arthritis. She finished a Z-Alexis 2 days ago for a productive cough. She is currently menstruating. She is sexually active. No concern for or STIs. No cough, wheezing, chest pain or shortness of breath. She reports a history of sepsis from a UTI in the past. CT Abd/Pelvis shows some cystitis, and some increased stool burden Principal Diagnosis Acute viral gastroenteritis Discharge Exam General-alert and oriented x3, no fevers, no chills HEENT-head atraumatic and normocephalic, pupils equal and reactive to light, extraocular muscles intact Neck-no lymphadenopathy or thyromegaly, trachea midline Chest-clear to auscultation percussion. No rales wheezing or rhonchi Cardiac-regular rate and rhythm, normal S1 and S2, no murmurs Abdomen-normal bowel sounds, nontender, no hepatosplenomegaly Extremities-no cyanosis, clubbing, or edema Neuro-cranial nerves II through XII intact, motor and sensory function within normal limits, strength symmetrical , no focal deficits Psych-normal affect, normal mood Discharge Data Allergies Allergy/AdvReac Type Severity Reaction Status Date / Time clindamycin Allergy Intermediate Rash Verified 02/09/22 08:28 prednisone AdvReac Intermediate SWELLING, Verified 02/09/22 08:28 LEGS NUMB Consultations 02/13/22 15:25 ED Decision to Admit Stat Ordered Studies 02/13/22 12:20 CT Abd and Pelvis [CT abd pelvis IV con only] Stat 02/15/22 12:48 US abdomen limited Urgent Hospital Course (1) Left sided abdominal pain: Resolved. Abdominal ultrasound is unremarkable. (2) Nausea, vomiting and diarrhea: Resolved with intravenous dosing . I suspect this was due to a viral gastroenteritis. (3) Psoriatic arthritis: Patient was on pulse Medrol Dosepak prior to her being admitted. Resumed dosepak dosing. No need for stress-dose steroids. Plan DVT prevention: SCDs Disposition: discharge to home today, February 16. I spoke to her mother, Marly, by phone Total Time Total Time Spent Total Time Spent (In Minutes): 35 minutes Discharge Plan Discharge Items Patient Disposition: Home - Self-Care Reason For Visit: NAUSEA/VOMITING DIARRHEA Discharge Diagnosis: Urinary tract infection Possibly a GI illness (gastroenteritis) that resolved on its own Activity: Resume your previous activity Non-emergency contact: Primary Care Provider Call non-emergency contact if: your symptoms worsen and your pain is not controlled Follow-up/Referrals: Doyle Carrion MD [Primary Care Provider] - 02/22/22 9:10 am (Dr Dubose) Diet: Regular Addtl Attending Provider Instructions: Ms. Ardon, Cam were admitted to the hospital with nausea, vomiting, and some diarrhea that has resolved. This is probably a viral gastroenteritis that will completely resolve. The strep bacteria found in the urine culture has been treated with intravenous antibiotics. No further antibiotic treatment is needed at this time. You can finish your Medrol dosepak as presscribed by Dr. Aguilar. Pending Studies at Discharge: No Stand-Alone Forms: My [facility], Smoking Cessation Medications and DC Order Prescriptions: New ondansetron 4 mg tablet,disintegrating 4 mg PO Q6H PRN (Reason: nausea and vomiting) Qty: 20 0RF Continued epinephrine [EpiPen] 0.3 mg/0.3 mL auto-injector 0.3 mg IM Q4H PRN (Reason: anaphylaxis) Qty: 1 0RF prenat.vits,vincent,[id number] Tablet 1 tab PO DAILY Qty: 30 2RF sertraline [Zoloft] 50 mg tablet 50 mg PO DAILY Qty: 30 2RF methenamine hippurate 1 gram tablet 1 g PO Q12H Qty: 60 11RF naproxen 500 mg Tablet 500 mg PO BID PRN (Reason: Headache) gabapentin 300 mg capsule 300 mg PO TID PRN (Reason: Pain) diphenhydramine HCl [Benadryl] 25 mg Capsule 25 mg PO DIRECTED PRN (Reason: Allergic Reaction) Discharge Orders: Discharge Order (Routine); Ordered 02/16/22 Ordered By: Dm Jay Admission Data Admit Date/Time: 02/13/22 15:45 Attending Provider: Dm Jay Admit Provider: Bari Erazo Primary Care Provider: Doyle Carrion Other Providers: Bari Erazo Other Interventions: Discharge Summary Assessment (RN) Last Done: 02/14/22 16:26 Coding Level of Care Code D/C DAY MANAGEMENT >30 MINS Diagnoses Left sided abdominal pain R10.9 Nausea, vomiting and diarrhea R11.2; R19.7 Psoriatic arthritis L40.50
== END 2022-02-16 13:58 | disposition home or self-care (01) ==
LOC: ED 09:28 → 3E 09:28 → SUATTDRO 15:45 → 3E 17:19